=== PATIENT | male | born 1980 | race Caucasian/White ===

== ENCOUNTER 2020-08-04 07:48 | Outpatient (REF) | payer MEDICARE, MEDICAID, SELFPAY ==
--- NOTE | ~2020-08-04 | US_ITS ---
EXAMINATION: US ABDOMEN COMPLETE CLINICAL INFORMATION: Abdominal pain. COMPARISON: None TECHNIQUE: Real-time imaging of the abdominal viscera. FINDINGS: PANCREAS: Normal. ABDOMINAL AORTA: Visualized portion of the aorta is normal. INFERIOR VENA CAVA: Visualized portion of the IVC is normal. LIVER: Diffusely echogenic liver suggesting hepatic steatosis, hypoechoic area in the liver likely focal fat sparing. GALLBLADDER: Normal. The gallbladder is physiologically distended without evidence of stones, sludge, polyps, wall thickening or pericholecystic fluid. COMMON BILE DUCT: Normal in caliber measuring 0.3 cm in diameter. RIGHT KIDNEY: Mildly complex septated cyst middle pole right kidney measures 1 cm in diameter. There are echogenic foci likely nonobstructing stones. No hydronephrosis The kidney measures 10.2 cm in maximum dimension. LEFT KIDNEY: Normal. No hydronephrosis. No renal calculi or focal parenchymal lesions. The kidney measures 11.4 cm in maximum dimension. SPLEEN: Normal. The spleen measures 11.2 cm in maximum dimension. FREE FLUID: None. US/US abdomen complete IMPRESSION: No ultrasound evidence of gallbladder disease or gallstones. No explanation for patient's pain symptoms. Diffusely echogenic liver suggesting hepatic steatosis, hypoechoic area likely focal fat sparing. Nonobstructing stones right kidney. Mildly complex septated cyst middle pole right kidney 1 cm. Consider correlation with follow-up ultrasound in 6-12 months.
== END 2020-08-04 07:49 | disposition home or self-care (01) ==
LOC: HO.US 07:48
PROVIDERS: PCP Internal Medicine Geriatric Medicine; Visit Provider Internal Medicine Geriatric Medicine
DX: G80.9 Cerebral palsy, unspecified (principal); R14.0 Abdominal distension (gaseous)
CPT/HCPCS: 76700

== ENCOUNTER 2021-03-06 12:54 | Outpatient (REF) | payer MEDICARE, MEDICAID, SELFPAY ==
--- NOTE | 2021-03-06 16:48 | MHC.AU.AEV ---
Adult Audiological Evaluation Date of Visit: 03/06/21 Reason for Appointment: Annual audiological evaluation as required by Mr. Mojica's care program. Mr. Mojica is developmentally delayed and nonverbal. His caregiver denies any concerns for his hearing or any changes to his medical history. Has hearing been tested previously?: Yes Previous Hearing Test Results: [facility] [place], 12/24/2019- Could not condition to VRA, unable to obtain behavioral responses. Normal middle-ear function. Normal OAEs from 0550-9738 Hz in the right ear and 4069-4258 and 6528-9763 Hz in the left ear. Reduced OAEs 1546-2635 Hz in the right ear and 1994-5698 and 8907-9329 Hz in the left ear. Medical History: Medical History: Developmental Disorder/Delay Medical History: Cerebral palsy Allergies: egg, lactose, shellfish Medication List: Fluvoxamine maleate 100 mg, Clonidine HCl 0.2 mg, melatonin 5 mg, Eucerin, Zyprexa 2.5 mg, Fish oil, valacyclovir HCl 1,000 mg, Vascepa 1 g, Tylenol 325 mg PRN, Clotrimazxole 1%, Tessalon perle 100 mg PRN Otoscopy: Right Ear: Unremarkable, clear canals, TM normal in appearance Left Ear: Unremarkable, clear canals, TM normal in appearance Tympanometry: Tympanometry performed due to: To assess integrity of the middle ear system Right Ear: Normal Middle Ear System (Type A) Left Ear: Normal Middle Ear System (Type A) Otoacoustic Emissions Frequency Range Used: 1.6-8 kHz Note: Abimael appeared very anxious during today's visit and was breathing very heavily during OAE testing, causing noise interference. Right Ear Results: Reduced Emissions Analysis: Reduced/Absent emissions suggest cochlear dysfunction. High noise floor present due to movement/vocalizations. Left Ear Results: Reduced Emissions Analysis: Reduced/Absent emissions suggest cochlear dysfunction. High noise floor present due to movement/vocalizations. Hearing Evaluation: Transducer(s) Used: Soundfield Method: Visual Reinforcement Audiometry (VRA), Behavioral Observation Audiometry Stimuli Used: FRESH Noise, Warble Tones Soundfield (At Least the Better Ear): Description of Hearing: Attempted VRA and BOA, but Abimael did not react to sounds and responses could not be obtained today. Speech Awareness Threshold (SAT): Soundfield: Attempted but did not respond to speech Interpretation of Results: Clear ear canals and normal middle-ear function bilaterally. OAEs are reduced today compared to last year's testing, but was likely impacted by noise from Abimael's heavy breathing today. Recommendations: Given that there are no concerns for Abimael's hearing at his long-term at this time, recommend a re-evaluation in one year. Diagnosis: Primary Diagnosis: H93.293 Abnormal Auditory Perception Services Performed: Diagnostic Otoacoustic Emissions (CPT 30408, 26+TC) Tympanometry (CPT 38715) Signature: Provider: Mary Manzanares, CCC-A
== END 2021-03-06 12:55 | disposition home or self-care (01) ==
LOC: HO.SH 12:54
PROVIDERS: Visit Provider Internal Medicine Geriatric Medicine
DX: H93.293 Other abnormal auditory perceptions, bilateral (principal)
CPT/HCPCS: 92567; 92588

== ENCOUNTER 2021-10-02 08:29 | Outpatient (REF) | payer MEDICARE, MEDICAID, SELFPAY ==
[2021-10-02 09:28] LABS: Hematocrit 44.7 % (42.0-52.0); Hemoglobin 15.4 g/dl (14.0-18.0); Mean Corpuscular HGB Conc 34.5 g/dl (31.0-36.0); Mean Corpuscular Hemoglobin 29.7 pg (27.0-33.0); Mean Corpuscular Volume 86.1 fL (80.0-98.0); Mean Platelet Volume 10.5 fL (9.4-12.4); Platelet Count 181 X10*3/uL (160-400); Red Blood Count 5.19 X10*6/uL (4.60-5.80); White Blood Count 6.6 X10*3/uL (4.8-10.8)
[2021-10-02 09:47] LABS: Estimated Average Glucose 94 mg/dL; Hemoglobin A1C 120.8386 umol/L; Hemoglobin A1c % 4.9 %
[2021-10-02 10:06] LABS: Alanine Aminotransferase 29 U/L (0-40); Albumin Level 4.6 g/dL (3.5-5.0); Alkaline Phosphatase 96 U/L (39-117); Anion Gap 16 (12-20); Aspartate Amino Transferase 19 U/L (5-37); Bilirubin Total 1.6 mg/dL (0.0-1.0); Blood Urea Nitrogen 13 mg/dL (9-16); Calcium 9.8 mg/dL (8.4-10.2); Carbon Dioxide 22 mmol/L (22-29); Chloride 104 mmol/L (96-108); Estimated Glomerular Filt Rate > 60; Glucose Random 126 mg/dL (60-115); HIV AB/AG Nonreactive (Nonreactive); HIV Num 1 0.12 S/CO (0.00-0.99); Sodium 138 mmol/L (135-145); Total Protein 7.5 g/dL (6.5-8.0); ~Hepatitis C Antibody Nonreactive (Nonreactive)
[2021-10-02 10:09] LABS: TSH reflex Free T4 1.76 uIU/mL (0.32-4.0)
== END 2021-10-02 08:30 | disposition home or self-care (01) ==
LOC: HO.LAB 08:29
PROVIDERS: PCP Internal Medicine Geriatric Medicine; Visit Provider Internal Medicine Geriatric Medicine
DX: R63.4 Abnormal weight loss (principal)
CPT/HCPCS: 36415; 80053; 83036; 84443; 85027; 86803; 87389

== ENCOUNTER 2022-06-06 10:12 | Outpatient (REF) | payer MEDICARE, MEDICAID, SELFPAY ==
--- NOTE | ~2022-06-06 | US_ITS ---
EXAMINATION: US RETROPERITONEAL LIMITED (RENAL ONLY) CLINICAL INFORMATION: Renal stones. COMPARISON: Ultrasound abdomen complete 08/04/2020. TECHNIQUE: Real-time imaging of the kidneys. FINDINGS: RIGHT KIDNEY: 10.3 x 4.4 x 4.7 cm (SAG x AP x TRV). The kidney is normal in size, contour, and echogenicity. Renal cortical thickness is normal. No hydronephrosis. Benign-appearing 1 cm renal cyst, no follow-up imaging recommended. 6 mm nonobstructing lower pole renal stone. LEFT KIDNEY: 10.0 x 5.2 x 5.0 cm (SAG x AP x TRV). The kidney is normal in size, contour, and echogenicity. Renal cortical thickness is normal. No renal calculi or hydronephrosis. A 1.6 x 1.3 x 1.5 cm left renal lesion with question of internal solid components versus internal components of hemorrhage, with mural calcification. Additional likely benign 1.7 cm renal cyst, with mural calcification, no follow-up imaging recommended. US/US renal BI IMPRESSION: A 1.6 cm indeterminate left renal lesion with question of internal solid components versus internal components of hemorrhage, unclear if this could reflect a complex cyst or mixed solid and cystic renal mass. Recommend further characterization with CT or MR renal mass protocol. 6 mm nonobstructing right lower pole renal stone. The report will be called to the ordering clinician by a [place] [facility] Physician Art Historian.
== END 2022-06-06 10:13 | disposition home or self-care (01) ==
LOC: HO.US 10:12
PROVIDERS: PCP Internal Medicine Geriatric Medicine; Visit Provider Internal Medicine Geriatric Medicine
DX: N20.0 Calculus of kidney (principal)
CPT/HCPCS: 76775

== ENCOUNTER 2022-07-18 16:05 | Outpatient (REF) | payer MEDICARE, MEDICAID, SELFPAY ==
--- NOTE | ~2022-07-18 | MR_ITS ---
EXAMINATION: MRI ABDOMEN WITH AND WITHOUT CONTRAST CLINICAL INFORMATION: Reason for Exam COMPARISON: 06/06/2022 ultrasound TECHNIQUE: Multiple routine MRI sequences through the abdomen were obtained on a high-field 1.5Tesla MRI. Pre-and postcontrast images with 7.5 mL of Gadavist intravenous contrast were obtained. This included a dynamic contrast-enhanced technique. FINDINGS: Lung bases: The visualized lung bases are unremarkable. Liver: There is diffuse signal loss within the liver parenchyma on the out of phase images consistent with diffuse fatty infiltration. No focal hepatic lesion or biliary ductal dilatation. Gallbladder: Gallbladder is contracted but otherwise unremarkable. No suspicious gallstones or filling defects. No gallbladder wall thickening or pericholecystic inflammatory changes. Pancreas: Visualized portion of the pancreas is homogeneous in signal. No pancreatic ductal dilatation or obstruction. No peripancreatic inflammatory changes or fluid. Spleen: Unremarkable Adrenals: Unremarkable Kidneys: Right kidney: The right kidney measures 9.9 cm in length. No obstructive changes seen. Tiny T2 subcentimeter bright nonenhancing cortical cysts incidentally noted. Left kidney: The left kidney measures 9.7 cm in length. Again no obstructive changes seen. No hydronephrosis or perinephric stranding. There is a T2 bright nonenhancing simple appearing cyst in the lateral mid to upper pole of the left kidney and an additional 1.5 cm cyst in the lateral midpole of the left kidney that also is T2 bright without significant postcontrast enhancement. Postcontrast images are degraded by motion artifact but again no significant enhancement is seen. Other: No bulky retroperitoneal or mesenteric adenopathy MR/MR abdomen wo/w con IMPRESSION: 1. There are simple appearing bilateral renal cysts including 2 simple appearing cysts seen in the left kidney. Although the postcontrast images are more significantly degraded by motion artifact, I do not appreciate any abnormal enhancing solid component. No suspicious renal mass lesion or hydronephrosis. 2. Diffuse fatty infiltration of the liver.
--- NOTE | ~2022-07-18 | XR_ITS ---
EXAMINATION: XR SKULL CLINICAL INFORMATION: Pre-MRI COMPARISON: None available. TECHNIQUE: 2 views of the skull were obtained. FINDINGS: No radiopaque foreign body or surgical device seen. Bony structures are normal. Soft tissues are normal. XR/XR skull <4V IMPRESSION: Unremarkable examination.
--- NOTE | ~2022-07-18 | XR_ITS ---
EXAMINATION: XR ABDOMEN KUB CLINICAL INDICATION: Pre-MRI COMPARISON: None available. TECHNIQUE: AP view of the abdomen. FINDINGS: There is a large stool burden present. No metallic radiopaque foreign bodies are appreciated. No dilated loops of large or small bowel. Bone island seen within the right femoral neck. XR/XR KUB IMPRESSION: No metallic radiopaque foreign body identified about the abdomen or pelvis.
--- NOTE | ~2022-07-18 | XR_ITS ---
EXAMINATION: XR CHEST CLINICAL INFORMATION: Pre-MRI COMPARISON: Chest radiographs 01/28/2010, 01/27/2010 TECHNIQUE: Frontal view of the chest was obtained. FINDINGS: There is no metallic foreign body, pacemaker, or pacer wires. The heart is within normal size. The vascularity is normal. There is tapering at the cardiac apex likely areolar tissue. The costophrenic sulci are clear. No infiltrate or airspace opacity. Upper abdomen unremarkable. XR/XR chest 1V IMPRESSION: -No pacemaker or metallic foreign body. Upper abdomen unremarkable. -No acute intrathoracic disease.
== END 2022-07-18 16:06 | disposition home or self-care (01) ==
LOC: HO.MRI 16:05
PROVIDERS: PCP Internal Medicine Geriatric Medicine; Visit Provider Internal Medicine Geriatric Medicine
DX: Z01.818 Encounter for other preprocedural examination (principal); N28.89 Other specified disorders of kidney and ureter
CPT/HCPCS: 70250; 71045; 74018; 74183; A9585

== ENCOUNTER 2022-11-17 11:28 | Emergency (ER) | payer MEDICARE, MEDICAID, SELFPAY ==
[2022-11-17 11:55] VITALS: BP 111/72; PULSE 76; RESP 20; TEMP 36.4; O2SAT 98; BMI 22.6
--- NOTE | 2022-11-17 11:55 | ED.GENADULT ---
HPI - General Adult General Chief complaint: Eye Problems Stated complaint: R eye redness Time Seen by Provider: 11/17/22 12:36 Source: patient and RN notes reviewed Mode of arrival: ambulatory Limitations: no limitations History of Present Illness HPI narrative: This is a 41-year-old male, with a past medical history of autism and is not verbal, fragile X syndrome, presenting to the emergency department with complaints of right eye redness since today. 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 storage worker reports that he has been rubbing his eye this morning - no discharge or drainage from his right eye. No known trauma to the eye. Pt has had no fevers. He is eating and drinking without difficulty. No recent cough, nasal congestion. No changes in behavior. No other complaints or concerns at this time. MD complaint: Eye redness Onset (ago): day(s) Associated symptoms: denies other symptoms Treatments prior to arrival: none Related Data Previous Rx's Medication Instructions Recorded docosanol 10 % topical cream 1 appl topical 5XD #2 grams 11/17/22 (Abreva) erythromycin 5 mg/gram (0.5 %) eye 1 appl ophthalmic-Right QID #3.5 11/17/22 ointment grams ganciclovir 0.15 % eye gel 1 drp ophthalmic-Right 5XD 1 week 11/17/22 #5 grams Allergies Allergy/AdvReac Type Severity Reaction Status Date / Time shellfish derived Allergy Severe Anaphylaxis Verified 11/17/22 11:59 egg [EGG] Allergy Unknown UNKNOWN Verified 11/17/22 11:59 lactose [LACTOSE] Allergy Unknown UNKNOWN Verified 11/17/22 11:59 Review of Systems Review of Systems: Yes all other systems are reviewed and are negative Constitutional: Constitutional: Reports as per [facility] Past Medical History Attestation statement: The following information was validated with the patient. Medical History Anxiety Cerebral palsy COVID-19 Fragile X syndrome History of pica Hypertriglyceridemia Intellectual disability Lactose intolerance Leg edema OCD (obsessive compulsive disorder) Tinea corporis Social History Social History Smoked in Last 30 Days: No Use of substances other than those prescribed or required for medical reasons: No Advance Directives: No Advance Directives Information Provided: Yes Physical Exam ED Vital Signs: Vital Signs - 24 hr 11/17/22 11:55 Temperature 97.6 F Pulse Rate 76 Respiratory Rate 20 Blood Pressure 111/72 Pulse Oximetry 98 Oxygen Delivery Method Room Air BMI result Body Mass Index 22.6 Const General: cooperative and comfortable Limitations: behavioral limitations HENMT Other: lower lip,lateral aspect there is a cluster of 3 vessicles noted. No surrounding erythema or edema. Head: Yes normal to inspection, Yes normocephalic and Yes atraumatic Ears: hearing grossly normal bilaterally General nose exam: Normal external nose present Face and sinus: Yes normal facial exam Mouth: Normal oral and palatal mucosa present, oropharynx normal and moist mucous membranes Throat: Yes posterior oropharynx normal Eyes Other: Right conjunctiva is injected, no drainage, with mild upper eyelid edema noted. ? 2mm vesicle noted to right upper eyelid. No surrounding vesicles General: appearance normal, both eyes and all related structures Eyelids: Yes eyelids normal Sclerae: sclerae normal Pupils: Equal, round and reactive pupils present EOM: EOMs intact bilaterally Neck Neck: Yes normal visual inspection, Yes full ROM and Yes no lymphadenopathy Lymphatic: no lymphadenopathy noted Chest Chest palpation & inspection: normal inspection of the chest Resp Effort & Inspection: normal respiratory effort and able to speak in complete sentences Auscultation: clear to auscultation bilaterally, no crackles, no rales, no rhonchi and no wheezes Cardio Rate: regular rate Rhythm: regular rhythm Heart sounds: S1 normal heart sound present and S2 normal heart sound present GI Inspection: Yes normal to inspection Skin General skin exam: no rashes or lesions noted Trauma: no lacerations or abrasions Wounds: no wounds Neuro General: moves all extremities Cranial nerves: Yes Equal, round and reactive pupils present Extrem General: Yes normal to inspection Right upper extremity: normal to inspection Left upper extremity: normal to inspection Right lower extremity: normal to inspection Left lower extremity: normal to inspection Course Course Course Narrative: This is a rapid medical exam. Deferred additional HPI, ROS, PE to primary provider. 42 yo male from a snf (here with staff) with a PMH anxiety, OCD, CP, fragile X syndrome, HLD, non verbal at baseline here with complaints of right eye redness, swelling with waking. Unknown injury. Per staff patient doesnt appear to be in pain. He is SOB when he is walking but staff tells me this is normal and he gets quite anxious at the hospital and breathes rapidly. Will need formal eye exam VSS Medications Administered Discontinued Medications Generic Name Dose Route Start Last Admin Trade Name Mckenna PRN Reason Stop Dose Admin Fluorescein Sodium 1 strip 11/17/22 12:00 11/17/22 12:36 Fluorescein Sodium Strip EYE-RIGHT 11/17/22 12:01 1 strip ONCE ONE Administration Tetracaine HCl 1 drop 11/17/22 12:00 11/17/22 12:36 Tetracaine Hcl/Pf 0.5% Oph Taniya 4 Ml Drops EYE-RIGHT 11/17/22 12:01 1 drop ONCE ONE Administration Medical Decision Making Medical Decision Making [facility] Narrative: 42 y/o M, nonverbal, presenting to the ER with complaints of right eye redness since today. Right upper eyelid with ?vesicle noted with mild edema noted. PERRL and EOMI. No drainage from right eye. given cold sores noted to lip and veiscle noted to right upper eye, concerning for herpes simplex outbreak vs conjunctivitis. Physical eye examination difficult to perform due to mental developmental delay. IOP of right eye 12mmHg - normal. Flourescein stain was performed with no obvious dendritic lesions noted. Given concern, discussed case with opthamologist - Dr. Ren, who suggests covering with gancyclovir ointment and antibiotic ointment - advised to avoid use of steroidal eye drops/ointment. Encouraged outpatient f/u if symptoms do not improve. Discussed with group president. Understands and agrees with plan. Pt stable for discharge. 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 Ren - opthamologist Lab Data [facility] Lab Attestation statement: I reviewed the patient's lab results. Independent Historian Clinical information obtained from an independent historian. History obtained from or confirmed by: Other (group president) Prescription Management I considered prescription management with: Antiviral and Antibiotic Social Determinants Patient?s care significantly limited by Social Determinants of Health including: Other Social Determinant of Health Discharge Plan Discharge Clinical Impression: Irritation of right eye Patient Disposition: Home, Self-Care Additional Instructions: Please use prescribed ointment as directed. It is unclear whether not patient has a start of a herpetic outbreak in his right eye or the start of a pink eye. We are still treating for both. If you develop any new or worsening symptoms please return to the ER. You may follow-up with Dr. Ren, eye physician for any concerning symptoms. Prescriptions: New ganciclovir 0.15 % gel 1 drp ophthalmic-Right 5XD 7 Days Qty: 5 0RF erythromycin 5 mg/gram (0.5 %) ointment 1 appl ophthalmic-Right QID Qty: 3.5 0RF docosanol [Abreva] 10 % cream 1 appl topical 5XD Qty: 2 0RF Referrals: Chele Ren [Physician] - Interventions: ED Discharge Assessment Last Done: 11/17/22 14:50 Discharge Date/Time: 11/17/22 14:51
--- NOTE | 2022-11-17 12:00 | PC.NURSE ---
non-contributory in terms of visual exam and assessment- senior care member assisted rn and utilized pt's binder w/med history, etc.
[2022-11-17] MEDS: Fluorescein Sodium STRIP 1 STRIP EYE-RIGHT (12:36)
[2022-11-17] MEDS: Tetracaine HCl/PF 0.5% Oph Sol 4 ML DROPS 1 DROP EYE-RIGHT (12:36)
--- NOTE | 2022-11-17 12:39 | PC.NURSE ---
jail staff at [facility]- pt nonverbal baselne. mildly swollen r eyelid, redness to r eye. grp home staff stated started this morning on waking w/o known trauma. no respiratory distress.
== END 2022-11-17 14:51 | disposition home or self-care (01) ==
PROVIDERS: Emergency Provider Student in an Organized Health Care Education/Training Program; PCP Internal Medicine Geriatric Medicine
DX: H57.11 Ocular pain, right eye (principal); Z79.899 Other long term (current) drug therapy
CPT/HCPCS: 99283; 99284

== ENCOUNTER 2023-06-18 11:25 | Outpatient (REF) | payer MEDICARE, MEDICAID, SELFPAY ==
[2023-06-21 15:38] LABS: TS Negative Control Passed; TS Panel A 0; TS Panel B 0; TS Positive Control Passed; TSpotTB Negative (Negative)
== END 2023-06-18 11:26 | disposition home or self-care (01) ==
LOC: HO.HHCL 11:25
PROVIDERS: Visit Provider Internal Medicine Geriatric Medicine
DX: Z00.00 Encounter for general adult medical examination without abnormal findings (principal)
CPT/HCPCS: 36415; 86481

== ENCOUNTER 2023-07-01 08:05 | Inpatient (IN) | payer MEDICARE, MEDICAID, SELFPAY ==
--- NOTE | ~2023-07-01 | CT_ITS ---
EXAMINATION: CT ABDOMEN AND PELVIS WITHOUT CONTRAST CLINICAL INFORMATION: Nausea and vomiting. COMPARISON: Abdomen MRI from 07/18/2022. TECHNIQUE: Multidetector volumetric imaging was performed from the superior aspect of the liver through the pubic symphysis. Sagittal and coronal reformatted images were obtained on the technologist's workstation. This CT examination was performed using dose optimization techniques as appropriate, variously including the following: *Automated exposure control *Adjustment of mA and/or kV according to patient size (this includes techniques or standardized protocols for targeted exams where dose is matched to indication/reason for exam; i.e. extremities or head) *Use of iterative reconstruction technique DLP: 634 mGy-cm FINDINGS: LUNG BASES: There is respiratory motion on images through the bases. No pulmonary consolidation or pleural effusion. HEPATOBILIARY: Mild hepatomegaly and diffuse hepatic steatosis. Gallbladder has a normal appearance. No radiopaque stones, wall thickening or pericholecystic fluid. No dilated bile ducts. PANCREAS: No edema, pancreatic ductal dilatation or mass. SPLEEN: Normal. ADRENAL GLANDS: Normal. KIDNEYS AND URETERS: Kidneys are normal in size. 0.3 cm stone of the [id number] pole of the right kidney. Probable small calyceal stone of the anterolateral lower pole the left kidney. No large renal stones or hydronephrosis. The ureters are unremarkable. 1.5 cm cortical cyst of the lateral left kidney has minimal calcification along its wall. No renal imaging follow-up recommended. BLADDER: Normal. No calculi or wall thickening. BOWEL AND PERITONEUM: Stomach is well distended with gas and remains in the normal size range. No gastric wall thickening. The duodenum is unremarkable. There is no evidence of a gastric outlet obstruction. No dilated loops of small or large bowel. No evidence of appendicitis. No focal bowel wall thickening, free fluid or pneumoperitoneum. The haziness within central mesenteric fat is consistent with mesenteric panniculitis. ABDOMINAL WALL: Unremarkable. VASCULATURE: Unremarkable. LYMPH NODES: No retroperitoneal, iliac or inguinal lymph nodes. The mesenteric lymph nodes are in normal size range and measure up to 5 mm short axis dimension. PELVIC VISCERA: Prostate gland is unremarkable. No pelvic mass or free fluid. MUSCULOSKELETAL: No acute or suspicious osseous abnormality. CT/CT abdomen pelvis wo IV con IMPRESSION: * Although the stomach is well distended with gas, it remains in the normal size range. There is no evidence of an inflammatory or obstructive process along the gastrointestinal tract. * There is mild hepatomegaly and diffuse hepatic steatosis. * The haziness of central mesenteric fat is consistent with mesenteric panniculitis.
[2023-07-01 08:23] VITALS: BP 119/80; PULSE 120; RESP 16; TEMP 37.1; O2SAT 97; BMI 23.6
--- NOTE | 2023-07-01 09:15 | ED_ITS ---
HPI - General Adult General Chief complaint: Nausea/Vomiting/Diarrhea Stated complaint: Vomiting, diarrhea Time Seen by Provider: 07/01/23 09:11 Source: other (staff members ) Mode of arrival: ambulatory Limitations: other (nonverbal ) History of Present Illness HPI narrative: 42-year-old male history of nonverbal autism, fragile X syndrome, cerebral palsy, OCD, anxiety, presenting from nursing home with staff for nausea, vomiting, diarrhea that started last night. They decided to bring patient into the emergency department today because he had an episode of vomiting with undigested food. Reports that there is another member of the nursing home that is having some loose stool/diarrhea. Patient hasnt been eating and drinking as usual. He was able to tolerate p.o. fluids and meds this morning however. Acting his normal self. Patient unable to provide me with HPI or review of systems secondary to nonverbal autism. Related Data Previous Rx's Medication Instructions Recorded docosanol 10 % topical cream 1 appl topical 5XD #2 grams 11/17/22 (Abreva) erythromycin 5 mg/gram (0.5 %) eye 1 appl ophthalmic-Right QID #3.5 11/17/22 ointment grams ganciclovir 0.15 % eye gel 1 drp ophthalmic-Right 5XD 1 week 11/17/22 #5 grams Allergies Allergy/AdvReac Type Severity Reaction Status Date / Time shellfish derived Allergy Severe Anaphylaxis Verified 07/01/23 08:21 egg [EGG] Allergy Unknown UNKNOWN Verified 11/17/22 11:59 lactose [LACTOSE] Allergy Unknown UNKNOWN Verified 07/01/23 08:21 Review of Systems 2 Review of Systems: Yes Unobtainable due to mental status PMFSH Past Medical History Attestation statement: The following information was validated with the patient. Source: old records reviewed and nursing notes reviewed Medical History COVID-19 Tinea corporis Intellectual disability History of pica Leg edema Lactose intolerance Hypertriglyceridemia Fragile X syndrome Cerebral palsy Anxiety OCD (obsessive compulsive disorder) Social History Social History Smoked in Last 30 Days: No Use of substances other than those prescribed or required for medical reasons: No Advance Directives: Yes Advance Directives Information Provided: No Advance Directives on File: No Physical Exam ED Vital Signs: Vital Signs - 24 hr 07/01/23 08:23 Temperature 98.7 F Pulse Rate 120 H Respiratory Rate 16 Blood Pressure 119/80 Pulse Oximetry 97 Oxygen Delivery Method Room Air BMI result Body Mass Index 23.6 tachycardia noted Appearance: Alert.? ? No acute distress.? Head: Normocephalic, atraumatic, no step-offs or deformities Eyes: Pupils equal, round and reactive to light.? CVS: Normal heart rate and rhythm.? Pulses normal.? Respiratory: No respiratory distress.? Breath sounds normal.? Abdomen: Soft and nontender.? Normoactive bowel sounds Skin: Skin warm and dry.? Normal skin color.? Normal skin turgor.? Extremities: No lower extremity edema.? No calf ttp. 5/5 strength to bilateral upper and lower extremities Back: No midline tenderness, no C-spine tenderness, full range of motion, no CVA tenderness bilaterally Neuro: Alert? No motor deficit.? No sensory deficit. Ambulating with steady gait normal coordination. Moving all extremities without difficulty. Course Reevaluation(s) Reevaluation #1: CBC with leukocytosis and left shift likely reactive secondary to nausea and vomiting. Chemistry with elevated total bili and elevated AST and ALT likely secondary to viral illness. Time: 10:00 Reevaluation #2: Patient's worker tried getting a urine for patient, an unsuccessful due to incontinence. Time: 11:30 Reevaluation #3: CT abdomen pelvis with no obstructive process, mild hepatomegaly. Diffuse hepatic steatosis. The haziness of central mesenteric fat as consistent with mesenteric panniculitis. Trying to get a urine on this patient. Patient not eating when given food Time: 14:27 Additional Reevaluation(s): 1638 UA with 4+ bacteria, positive nitrates and leukocyte esterases at this time infection suspected. Blood cultures, lactic acid ordered as well as antibiotics. Medications Administered Discontinued Medications Generic Name Dose Route Start Last Admin Trade Name Freq PRN Reason Stop Dose Admin Lorazepam 0.5 mg 07/01/23 10:46 07/01/23 11:32 Lorazepam 0.5 Mg Tablet PO 07/01/23 10:47 0.5 mg ONCE ONE Administration Medical Decision Making Medical Decision Making [facility] Narrative: 0998 42-year-old male nonverbal presents with nausea, vomiting, diarrhea since last night, coming from nursing home where another member sick with similar symptoms. Physical exam benign. History and physical exam concerning for viral illness versus gastroenteritis versus food poisoning. Will rule out flu versus COVID versus RSV. Unlikely acute abdomen, obstruction, diverticulitis, appendicitis, pancreatitis, cholecystitis, metabolic derangements. Plan at this time will obtain basic labs, imaging, viral testing. Differential Diagnosis Differential Diagnoses: The differential diagnosis associated with the presentation includes History and physical exam concerning for viral illness versus gastroenteritis versus food poisoning. Will rule out flu versus COVID versus RSV. Unlikely acute abdomen, obstruction, diverticulitis, appendicitis, pancreatitis, cholecystitis, metabolic derangements. Admission/Observation Consideration of admission/observation: Escalation of care including admission/observation considered Unlikely Lab Data MDM Lab Attestation statement: I reviewed the patient's lab results. 07/01/23 09:24 07/01/23 09:24 Labs: Lab Results 07/01/23 07/01/23 07/01/23 Range/Units 09:08 09:24 16:21 WBC 13.6 H (4.8-10.8) X10*3/uL RBC 5.68 (4.60-5.80) X10*6/uL Hgb 17.6 (14.0-18.0) g/dl Hct 48.3 (42.0-52.0) % MCV 85.0 (80.0-98.0) fL MCH 31.0 (27.0-33.0) pg MCHC 36.4 H (31.0-36.0) g/dl RDW 13.3 (11.0-16.0) % Plt Count 213 (160-400) X10*3/uL MPV 9.2 L (9.4-12.4) fL Immature Gran % (Auto) 0.5 H (0.0-0.4) % Neut % (Auto) 92.0 H (45-73) % Lymph % (Auto) 3.8 L (20-40) % [place] % (Auto) 3.5 (2-11) % Eos % (Auto) 0.0 (0-4) % Baso % (Auto) 0.2 (0-2) % Lymph # (Auto) 0.5 L (1.2-4.9) X10*3/uL [place] # (Auto) 0.5 (0.1-1.2) X10*3/uL Eos # (Auto) 0.0 (0.0-0.4) X10*3/uL Baso # (Auto) 0.0 (0.0-0.2) X10*3/uL Abs Immat Gran (auto) 0.07 H (0.00-0.03) X10*3/uL Absolute Neuts (auto) 12.5 H (2.0-8.3) x10*3/uL Absolute Nucleated RBC 0.000 (0.0-0.012) X10*3/uL Nucleated RBC % (auto) 0.0 (0.0-0.2) /100WBC Smear Tech's Comments VERIFIED Sodium 142 (135-145) mmol/L Potassium 3.7 (3.3-5.1) mmol/L Chloride 108 (96-108) mmol/L Carbon Dioxide 23 (22-29) mmol/L Anion Gap 15 (12-20) BUN 17 H (9-16) mg/dL Creatinine 0.83 (0.5-1.4) mg/dL Estim Creat Clear Calc 113.3 Estimated GFR > 60 Random Glucose 127 H (60-115) mg/dL Calcium 9.5 (8.4-10.2) mg/dL Magnesium 1.9 (1.6-2.6) mg/dL Total Bilirubin 2.9 H (0.0-1.0) mg/dL AST 69 H (5-37) U/L ALT 133 H (0-40) U/L Alkaline Phosphatase 82 (39-117) U/L Total Protein 7.7 (6.5-8.0) g/dL Albumin 4.6 (3.5-5.0) g/dL Lipase 19 (8-78) U/L Urine Color Yellow Urine Appearance Cloudy Urine pH 7.5 (5.0-9.0) Ur Specific [place] 1.015 (1.005-1.025) Urine Protein 30 (1+) H (Neg-Trace) mg/dL Urine Glucose (UA) Negative (Negative) mg/dL Urine Ketones 15 (Negative) mg/dL Urine Blood Negative (Negative) Urine Nitrite Positive H (Negative) Ur Leukocyte Esterase Moderate (2+) H (Negative) Urine RBC 0-2 (0-2) /HPF Urine WBC 21-50 H (0-5) /HPF Ur Squamous Epith Cells 0-2 (0-2) /HPF Urine Bacteria 4+ (None Seen) Hyaline Casts 0-2 (0-2) /LPF Influenza Type A (PCR) NEGATIVE (Negative) Influenza Type B (PCR) NEGATIVE (Negative) RSV RNA Qual (PCR) NEGATIVE (Negative) SARS-CoV-2 RNA (RT-PCR) NEGATIVE (Negative) Independent Interpretation I performed an independent interpretation of an: CT Scan (CT/CT abdomen pelvis wo IV con IMPRESSION: * Although the stomach is well distended with gas, it remains in the normal size range. There is no evidence of an inflammatory or obstructive process along the gastrointestinal tract. * There is mild hepatomegaly and diffuse hepatic steatosis. * The mattson) Radiology Impression Discussion of test interpretation with radiology: I have reviewed the radiologist's reading. Independent Historian Clinical information obtained from an independent historian. History obtained from or confirmed by: Other (Staff from home) External Record Review External record reviewed: Inpatient record, Office record, Outpatient record, Prior outpatient labs, Prior outpatient radiology, Primary care record and Outside ED record Chronic Conditions Patient?s care impacted by: Other (Fragile X, nonverbal autism, OCD, anxiety.) Social Determinants Patient?s care significantly limited by Social Determinants of Health including: Other Social Determinant of Health Critical Care Time Critical Care Time Critical Care Time: Yes Total Critical Care Time: 35 Attestation: I attest to this time spent taking care of the patient, obtaining history, physical, reviewing labs, imaging, speaking to my attending, Discharge Plan Discharge Clinical Impression: Mesenteric panniculitis, Nausea & vomiting, Acute UTI Patient Disposition: Admitted As Inpatient Prescriptions: No Action ganciclovir 0.15 % gel 1 drp ophthalmic-Right 5XD 7 Days Qty: 5 0RF erythromycin 5 mg/gram (0.5 %) ointment 1 appl ophthalmic-Right QID Qty: 3.5 0RF docosanol [Abreva] 10 % cream 1 appl topical 5XD Qty: 2 0RF
[2023-07-01 09:30] LABS: Basophils Percent Auto 0.2 % (0-2); Hematocrit 48.3 % (42.0-52.0); Hemoglobin 17.6 g/dl (14.0-18.0); Imm Gran Abs Auto 0.07 X10*3/uL (0.00-0.03); Imm Gran Pct Auto 0.5 % (0.0-0.4); Lymphocytes Absolute Auto 0.5 X10*3/uL (1.2-4.9); Lymphocytes Percent Auto 3.8 % (20-40); MANUAL DIFF FLAG SCAN; Mean Corpuscular HGB Conc 36.4 g/dl (31.0-36.0); Mean Platelet Volume 9.2 fL (9.4-12.4); Monocytes Absolute Auto 0.5 X10*3/uL (0.1-1.2); Monocytes Percent Auto 3.5 % (2-11); Neutrophils Absolute Auto 12.5 x10*3/uL (2.0-8.3); Platelet Count 213 X10*3/uL (160-400); Red Blood Count 5.68 X10*6/uL (4.60-5.80); Red Cell Distribution Width 13.3 % (11.0-16.0); SCAN SMEAR FLAG 1; White Blood Count 13.6 X10*3/uL (4.8-10.8)
[2023-07-01 09:46] LABS: Alanine Aminotransferase 133 U/L (0-40); Albumin Level 4.6 g/dL (3.5-5.0); Alkaline Phosphatase 82 U/L (39-117); Anion Gap 15 (12-20); Aspartate Amino Transferase 69 U/L (5-37); Bilirubin Total 2.9 mg/dL (0.0-1.0); Blood Urea Nitrogen 17 mg/dL (9-16); Calcium 9.5 mg/dL (8.4-10.2); Carbon Dioxide 23 mmol/L (22-29); Chloride 108 mmol/L (96-108); Creatinine Clr Calc Pharmacy 113.3; Estimated Glomerular Filt Rate > 60; Glucose Random 127 mg/dL (60-115); Lipase 19 U/L (8-78); Magnesium 1.9 mg/dL (1.6-2.6); Potassium 3.7 mmol/L (3.3-5.1); Sodium 142 mmol/L (135-145); Total Protein 7.7 g/dL (6.5-8.0)
[2023-07-01 09:50] LABS: Influenza A PCR NEGATIVE (Negative); Influenza B PCR NEGATIVE (Negative); Resp Syncy Virus RNA Qual PCR NEGATIVE (Negative); SARS COV2 PCR INHOUSE NEGATIVE (Negative)
[2023-07-01 09:54] LABS: SLIDE REVIEW VERIFIED
[2023-07-01] MEDS: LORazepam 0.5 MG TABLET PO (11:32)
[2023-07-01 16:31] LABS: Appearance Urine Cloudy; Color Urine Yellow; Glucose Urine UA Negative (Negative); Leukocyte Esterase Urine Moderate (2+) (Negative); Nitrite Urine Positive (Negative); PH 7.5 (5.0-9.0); Specific Gravity - Urine 1.015 (1.005-1.025); UMIC TRIGGER UACC YES; Urine Blood Negative (Negative); Urine Ketones 15 mg/dL (Negative); Urine Protein 30 (1+) mg/dL (Neg-Trace)
[2023-07-01 16:34] LABS: Bacteria Urine 4+ (None Seen); Hyaline Casts Urine 0-2 /LPF (0-2); RBC Urine 0-2 /HPF (0-2); Squamous Epithelial Cell Urine 0-2 /HPF (0-2); UACC Culture Trigger YES; WBC Urine 21-50 /HPF (0-5)
--- NOTE | 2023-07-01 17:15 | PM.IMHP ---
History of Present Illness Date of Service: 07/01/23 Chief Complaint: Intractable nausea and vomiting A 42 years old male with PMH of nonverbal Autism, fragile X syndrome, cerebral palsy, OCD among others who is presenting wt intractable nausea and vomiting for almost 2 days now. The patient resides at a [facility] and he is non-verbal and could not contribute to the history. The staff decided to bring him for nausea, vomiting and diarrhea. he started vomiting undigested food and could not keep it down. in ED he was found to have UTI with abnormal CT abdomen showing Mesentric fat abnormalities suggestive of panniculitis. Admitted for further evaluation and treatment. Review of Systems Review of Systems: Yes Unobtainable due to mental condition [facility] Medical History COVID-19 Tinea corporis Intellectual disability History of pica Leg edema Lactose intolerance Hypertriglyceridemia Fragile X syndrome Cerebral palsy Anxiety OCD (obsessive compulsive disorder) Social History Smoked in Last 30 Days: No Use of substances other than those prescribed or required for medical reasons: No Advance Directives: Yes Advance Directives Information Provided: No Advance Directives on File: No Meds Allergies Allergy/AdvReac Type Severity Reaction Status Date / Time shellfish derived Allergy Severe Anaphylaxis Verified 07/01/23 08:21 egg [EGG] Allergy Unknown UNKNOWN Verified 11/17/22 11:59 lactose [LACTOSE] Allergy Unknown UNKNOWN Verified 07/01/23 08:21 Active Medications: Current Medications Sodium Chloride (Ns) 2,109 mls @ 2,109 mls/hr 30 ml/kg infuse over 1 hr (2109 ml) IV .Q1H STA Stop: 07/01/23 17:37 Home Medications Medication Instructions Recorded Confirmed Last Taken Type [place] 1 appl topical DAILY dry skin 07/01/23 07/01/23 Unknown History acetaminophen 325 mg tablet 650 mg PO Q6H PRN Fever Or Pain 07/01/23 07/01/23 Unknown History bacitracin 500 unit/gram topical 1 appl topical DAILY PRN MINOR 07/01/23 07/01/23 Unknown History ointment CUT, SCRATCHES OR ABRASIONS benzonatate 100 mg capsule 100 mg PO TID PRN COUGH LASTING 07/01/23 07/01/23 Unknown History LONGER THAN 5 MINUTES cetirizine 10 mg tablet 10 mg PO DAILY 07/01/23 07/01/23 Unknown History clonidine HCl 0.2 mg tablet 0.2 mg PO BID@0900,1400 07/01/23 07/01/23 Unknown History clotrimazole 1 % topical cream 1 appl topical BID 07/01/23 07/01/23 Unknown History epinephrine 0.3 mg/0.3 mL 0.3 mg IM DAILY PRN Anaphylaxis 07/01/23 07/01/23 Unknown History injection, auto-injector fluvoxamine 100 mg tablet 100 mg PO BEDTIME 07/01/23 07/01/23 Unknown History fluvoxamine 100 mg tablet 200 mg PO DAILY 07/01/23 07/01/23 Unknown History hydroxyzine HCl 25 mg tablet 25 mg PO BEDTIME 07/01/23 07/01/23 Unknown History icosapent ethyl 1 gram capsule 1 g PO DAILY 07/01/23 07/01/23 Unknown History (Vascepa) lorazepam 0.5 mg tablet 0.5 mg PO DAILY PRN Agitation 07/01/23 07/01/23 Unknown History melatonin 5 mg tablet 5 mg PO BEDTIME 07/01/23 07/01/23 Unknown History olanzapine 2.5 mg tablet 2.5 mg PO DAILY 07/01/23 07/01/23 Unknown History white petrolatum-mineral oil 1 appl topical BID 07/01/23 07/01/23 Unknown History topical cream Physical Exam Vital Signs and Narrative: Vital Signs: Last Vital Signs Temp 98.7 F 07/01/23 08:23 Pulse 120 H 07/01/23 08:23 Resp 16 07/01/23 08:23 BP 119/80 07/01/23 08:23 Pulse Ox 97 07/01/23 08:23 O2 Del Method Room Air 07/01/23 08:23 BMI result Body Mass Index 23.6 Const: Other: Constitutional : Awake, non-verbal, not in distress Neck : Normal inspection, Supple Cardiovascular : RRR, no JVP, no lower extremity edema Respiratory : good bilateral air entry, no crackles, wheezes or rhonchi Gastrointestinal: soft, lax, Normal bowel sounds, grimicing with palpation; tenderness Skin : Warm, Dry Neurological : Alert , make eye contact and reach out with hands , No focal deficit Results Labs 07/01/23 09:24 07/01/23 09:24 Labs: Laboratory Results - last 24 hr 07/01/23 07/01/23 07/01/23 09:08 09:24 16:21 MCV 85.0 MCH 31.0 MCHC 36.4 H RDW 13.3 Plt Count 213 MPV 9.2 L Immature Gran % (Auto) 0.5 H Neut % (Auto) 92.0 H Lymph % (Auto) 3.8 L [place] % (Auto) 3.5 Eos % (Auto) 0.0 Baso % (Auto) 0.2 Lymph # (Auto) 0.5 L [place] # (Auto) 0.5 Eos # (Auto) 0.0 Baso # (Auto) 0.0 Abs Immat Gran (auto) 0.07 H Absolute Neuts (auto) 12.5 H Absolute Nucleated RBC 0.000 Nucleated RBC % (auto) 0.0 Smear Tech's Comments VERIFIED Anion Gap 15 Estim Creat Clear Calc 113.3 Estimated GFR > 60 Random Glucose 127 H Calcium 9.5 Magnesium 1.9 Total Bilirubin 2.9 H AST 69 H ALT 133 H Alkaline Phosphatase 82 Total Protein 7.7 Albumin 4.6 Lipase 19 Urine Color Yellow Urine Appearance Cloudy Urine pH 7.5 Ur Specific [place] 1.015 Urine Protein 30 (1+) H Urine Glucose (UA) Negative Urine Ketones 15 Urine Blood Negative Urine Nitrite Positive H Ur Leukocyte Esterase Moderate (2+) H Urine RBC 0-2 Urine WBC 21-50 H Ur Squamous Epith Cells 0-2 Urine Bacteria 4+ Hyaline Casts 0-2 Influenza Type A (PCR) NEGATIVE Influenza Type B (PCR) NEGATIVE RSV RNA Qual (PCR) NEGATIVE SARS-CoV-2 RNA (RT-PCR) NEGATIVE Imaging Radiologist's Impressions: Impressions Abdomen/Pelvis CT 07/01/23 13:41 IMPRESSION: * Although the stomach is well distended with gas, it remains in the normal size range. There is no evidence of an inflammatory or obstructive process along the gastrointestinal tract. * There is mild hepatomegaly and diffuse hepatic steatosis. * The haziness of central mesenteric fat is consistent with mesenteric panniculitis. Assessment and Plan (1) Acute UTI: Status: Acute (2) Nausea & vomiting: Status: Acute (3) Mesenteric panniculitis: Status: Acute Plan A 42 years old male with PMH of nonverbal Autism, fragile X syndrome, cerebral palsy, OCD among others who is presenting wth intractable nausea and vomiting for almost 2 days now. Intractable nausea and vomiting Likely secondary to Urine infection Pending cultures IVF Zofran Ceftriaxone IV Advance diet as tolerated; on clears MEsentric panniculitis Noted on CT scan of abdomen get surgical evaluation Mood disorder Hydroxyzine, Olanzapine and Melatonin bedtime Clonidine Ativan PRN DVT PPx Lovenox The patient will need 2 overnight hospital stay for treatment of UTI pending final culture and clinical improvement Quality Stroke Does the patient have a stroke diagnosis?: No VTE Prior VTE?: No VTE Risk Level:: Medical - moderate - high VTE Device Contraindication: N/A - Device Ordered VTE Drug Contraindication: N/A - Med Ordered
--- NOTE | 2023-07-01 17:30 | PHA.MEDREC ---
Pharmacy Consult ? Medication Reconciliation Pharmacy has completed the medication reconciliation. List from [facility] that matches claim history. Ileana Parker, TobyD
[2023-07-01] MEDS: ondansetron HCL 4 MG/2 ML VIAL IVPUSH (17:31)
[2023-07-01] MEDS: Enoxaparin Sodium 40 MG/0.4 ML SYRINGE SUBCUT (17:31)
[2023-07-01] MEDS: cefTRIAXone sodium 1 GM in 0.9 % Sodium Chloride 50 ML IV (17:31)
[2023-07-01 17:42] VITALS: BP 106/72; PULSE 94; RESP 20; TEMP 36.9; O2SAT 98
[2023-07-01 18:20] LABS: Lactic Acid 2.4 mmol/L (0.5-2.0)
[2023-07-01 19:22] LABS: Reflex Lactate? Lactic Acid Added
[2023-07-01] MEDS: Lactated Ringers 1,000 ML 80 ML IVCONT (19:56)
[2023-07-01 20:15] LABS: ~Lactic Acid-LAB USE ONLY 2.1 mmol/L (0.5-2.0)
--- NOTE | 2023-07-01 20:25 | PC.NURSE ---
Assumed care of pt. Pt ambulated from stretcher to hospital bed without complications. Care worker at bedside with pt. Pt has LR IVF running in RAC IV. Contacted hospitalist with concerns of repeat Lactic (2.1, down from 2.4) and request for update.
--- NOTE | 2023-07-01 20:43 | P.CONGS_ITS ---
History of Present Illness Consult details Consult date: 07/01/23 Requesting physician: Phillip Barker Narrative: 42 years old male with PMH of nonverbal Autism, fragile X syndrome, cerebral palsy, OCD among others who is presenting wth intractable nausea and vomiting for almost 2 days now. The patient resides at a correction and he is non-verbal and could not contribute to the history. The staff decided to bring him for nausea, vomiting and diarrhea. he started vomiting undigested food and could not keep it down. in ED he was found to have UTI with abnormal CT abdomen showing Mesentric fat abnormalities suggestive of panniculitis. He does not seem to have any abdominal pain and since he has been here in the emergency room he seems to have become more comfortable according to his caregiver. . Review of Systems 2 Review of Systems: Yes Unobtainable due to mental condition and Unobtainable due to mental status PMFSH Past Medical History Medical History COVID-19 Tinea corporis Intellectual disability History of pica Leg edema Lactose intolerance Hypertriglyceridemia Fragile X syndrome Cerebral palsy Anxiety OCD (obsessive compulsive disorder) Social History Social History Patient Tobacco Use Status: Never used Tobacco Smoked in Last 30 Days: No Use of substances other than those prescribed or required for medical reasons: No Advance Directives: Yes Advance Directives Information Provided: No Advance Directives on File: No Nutrition Risks: No Nutritional Risk Meds Allergies Allergy/AdvReac Type Severity Reaction Status Date / Time shellfish derived Allergy Severe Anaphylaxis Verified 07/01/23 08:21 egg [EGG] Allergy Unknown UNKNOWN Verified 11/17/22 11:59 lactose [LACTOSE] Allergy Unknown UNKNOWN Verified 07/01/23 08:21 Active Medications: Current Medications Acetaminophen (Acetaminophen 325 Mg Tablet) 650 mg PO Q6H PRN PRN Reason: Pain, Mild (Pain Scale 1-3) Benzonatate (Benzonatate 100 Mg Capsule) 100 mg PO TID PRN PRN Reason: COUGH LASTING LONGER THAN 5 MINUTES Clonidine HCl (Clonidine Hcl 0.2 Mg Tablet) 0.2 mg PO BID@0900,1400 [facility]; Protocol Clotrimazole (Clotrimazole 1 % Cream 15 Gm Tube) 1 appl TOPICAL BID [facility]; Protocol Enoxaparin Sodium (Enoxaparin Sodium 40 Mg/0.4 Ml Syringe) 40 mg SUBCUT Q24H [facility] Last Admin: 07/01/23 17:31 Dose: 40 mg Epinephrine (Epinephrine 1 Mg/Ml Vial) 0.3 mg IM DAILY PRN PRN Reason: Anaphylaxis Fluvoxamine Maleate (Fluvoxamine Maleate 50 Mg Tablet) 100 mg PO BEDTIME [facility] Fluvoxamine Maleate (Fluvoxamine Maleate 50 Mg Tablet) 200 mg PO DAILY [facility] Hydroxyzine HCl (Hydroxyzine Hcl 25 Mg Tablet) 25 mg PO BEDTIME [facility] Ceftriaxone Sodium 1 gm/ (Sodium Chloride) 50 mls @ 100 mls/hr IV Q24H [facility] Lactated Ringer's (Lr) 1,000 mls @ 80 mls/hr IVCONT .[id number] [facility] Last Admin: 07/01/23 19:56 Dose: 80 mls/hr Ketorolac Tromethamine (Ketorolac Tromethamine 30 Mg/Ml Vial) 15 mg IVPUSH Q6H PRN PRN Reason: Pain, Mild (Pain Scale 1-3) Stop: 07/06/23 17:06 Loratadine (Loratadine 10 Mg Tablet) 10 mg PO DAILY [facility] Lorazepam (Lorazepam 0.5 Mg Tablet) 0.5 mg PO DAILY PRN PRN Reason: Agitation Melatonin (Melatonin 3 Mg Tablet) 6 mg PO BEDTIME [facility] Multi-Ingred Cream/Lotion/Oil/Oint (Mineral Oil/Petrolatum,White 106 Gm Tube) 1 appl TOPICAL BID [facility]; Protocol Non-Formulary Medication (Icosapent Ethyl [Vascepa]) 1 gm PO DAILY [facility] Olanzapine (Olanzapine 2.5 Mg Tablet) 2.5 mg PO DAILY [facility] Ondansetron HCl (Ondansetron Hcl 4 Mg/2 Ml Vial) 4 mg IVPUSH Q8H PRN PRN Reason: Nausea and Vomiting Sodium Chloride (0.9 % Sodium Chloride Flush 3 Ml Syringe) 3 ml IVFLUSH QSHIFT [facility] Home Medications Medication Instructions Recorded Confirmed Last Taken Type [place] 1 appl topical DAILY dry skin 07/01/23 07/01/23 Unknown History acetaminophen 325 mg tablet 650 mg PO Q6H PRN Fever Or Pain 07/01/23 07/01/23 Unknown History bacitracin 500 unit/gram topical 1 appl topical DAILY PRN MINOR 07/01/23 07/01/23 Unknown History ointment CUT, SCRATCHES OR ABRASIONS benzonatate 100 mg capsule 100 mg PO TID PRN COUGH LASTING 07/01/23 07/01/23 Unknown History LONGER THAN 5 MINUTES cetirizine 10 mg tablet 10 mg PO DAILY 07/01/23 07/01/23 Unknown History clonidine HCl 0.2 mg tablet 0.2 mg PO BID@0900,1400 07/01/23 07/01/23 Unknown History clotrimazole 1 % topical cream 1 appl topical BID 07/01/23 07/01/23 Unknown History epinephrine 0.3 mg/0.3 mL 0.3 mg IM DAILY PRN Anaphylaxis 07/01/23 07/01/23 Unknown History injection, auto-injector fluvoxamine 100 mg tablet 100 mg PO BEDTIME 07/01/23 07/01/23 Unknown History fluvoxamine 100 mg tablet 200 mg PO DAILY 07/01/23 07/01/23 Unknown History hydroxyzine HCl 25 mg tablet 25 mg PO BEDTIME 07/01/23 07/01/23 Unknown History icosapent ethyl 1 gram capsule 1 g PO DAILY 07/01/23 07/01/23 Unknown History (Vascepa) lorazepam 0.5 mg tablet 0.5 mg PO DAILY PRN Agitation 07/01/23 07/01/23 Unknown History melatonin 5 mg tablet 5 mg PO BEDTIME 07/01/23 07/01/23 Unknown History olanzapine 2.5 mg tablet 2.5 mg PO DAILY 07/01/23 07/01/23 Unknown History white petrolatum-mineral oil 1 appl topical BID 07/01/23 07/01/23 Unknown History topical cream Physical Exam 2 Vital Signs: Vital Signs: Last Vital Signs Temp 98.5 F 07/01/23 17:42 Pulse 94 07/01/23 17:42 Resp 20 07/01/23 17:42 BP 106/72 07/01/23 17:42 Pulse Ox 98 07/01/23 17:42 O2 Del Method Room Air 07/01/23 17:42 BMI result Body Mass Index 23.6 Const: General: cooperative and comfortable Resp: Effort & Inspection: normal respiratory effort Auscultation: clear to auscultation bilaterally Cardio: Rate: regular rate GI: Other: Abdomen is soft nondistended nontender active bowel sounds. At least it seems nontender according to no guarding and no expression on his face change with deep palpation. He is cooperative to the abdominal exam Extrem: General: Yes normal to inspection Results Labs 07/01/23 09:24 07/01/23 09:24 Labs: Abnormal lab results 07/01/23 07/01/23 07/01/23 Range/Units 09:24 16:21 17:17 WBC 13.6 H (4.8-10.8) X10*3/uL MCHC 36.4 H (31.0-36.0) g/dl MPV 9.2 L (9.4-12.4) fL Immature Gran % (Auto) 0.5 H (0.0-0.4) % Neut % (Auto) 92.0 H (45-73) % Lymph % (Auto) 3.8 L (20-40) % Lymph # (Auto) 0.5 L (1.2-4.9) X10*3/uL Abs Immat Gran (auto) 0.07 H (0.00-0.03) X10*3/uL Absolute Neuts (auto) 12.5 H (2.0-8.3) x10*3/uL BUN 17 H (9-16) mg/dL Random Glucose 127 H (60-115) mg/dL Lactic Acid 2.4 H* (0.5-2.0) mmol/L Lactic Acid F/U @ 2Hr (0.5-2.0) mmol/L Total Bilirubin 2.9 H (0.0-1.0) mg/dL AST 69 H (5-37) U/L ALT 133 H (0-40) U/L Urine Protein 30 (1+) H (Neg-Trace) mg/dL Urine Nitrite Positive H (Negative) Ur Leukocyte Esterase Moderate (2+) H (Negative) Urine WBC 21-50 H (0-5) /HPF 07/01/23 Range/Units 19:49 WBC (4.8-10.8) X10*3/uL MCHC (31.0-36.0) g/dl MPV (9.4-12.4) fL Immature Gran % (Auto) (0.0-0.4) % Neut % (Auto) (45-73) % Lymph % (Auto) (20-40) % Lymph # (Auto) (1.2-4.9) X10*3/uL Abs Immat Gran (auto) (0.00-0.03) X10*3/uL Absolute Neuts (auto) (2.0-8.3) x10*3/uL BUN (9-16) mg/dL Random Glucose (60-115) mg/dL Lactic Acid (0.5-2.0) mmol/L Lactic Acid F/U @ 2Hr 2.1 H* (0.5-2.0) mmol/L Total Bilirubin (0.0-1.0) mg/dL AST (5-37) U/L ALT (0-40) U/L Urine Protein (Neg-Trace) mg/dL Urine Nitrite (Negative) Ur Leukocyte Esterase (Negative) Urine WBC (0-5) /HPF Short CBC 07/01/23 Range/Units 09:24 WBC 13.6 H (4.8-10.8) X10*3/uL Hgb 17.6 (14.0-18.0) g/dl Hct 48.3 (42.0-52.0) % Plt Count 213 (160-400) X10*3/uL BMP 07/01/23 09:24 Sodium 142 Potassium 3.7 Chloride 108 Carbon Dioxide 23 BUN 17 H Creatinine 0.83 Calcium 9.5 Liver Function 07/01/23 Range/Units 09:24 Total Bilirubin 2.9 H (0.0-1.0) mg/dL AST 69 H (5-37) U/L ALT 133 H (0-40) U/L Alkaline Phosphatase 82 (39-117) U/L Albumin 4.6 (3.5-5.0) g/dL Urine 07/01/23 Range/Units 16:21 Urine Color Yellow Urine Appearance Cloudy Urine pH 7.5 (5.0-9.0) Ur Specific [place] 1.015 (1.005-1.025) Urine Protein 30 (1+) H (Neg-Trace) mg/dL Urine Glucose (UA) Negative (Negative) mg/dL All other labs normal. Assessment and Plan (1) Mesenteric panniculitis: Status: Acute Plan Patient is a 42-year-old special needs with cerebral palsy fragile X syndrome nonverbal male who is lives at a correction most likely is not been doing well secondary to significant urinary tract infection. He has already been treated with IV and biotics as well as IV fluids. He is urinating. CT scan showed potential changes consistent with mesenteric panniculitis but it does not appear that the patient has any significant abdominal pain. I think the nausea and vomiting were secondary to the significant urinary tract infection. Most likely treatment of this along with the IV hydration and antibiotics will clear up his symptoms and already he seems to be doing better. In addition and may help any changes from the panniculitis. At this point no reason for any surgical intervention we will follow with another abdominal exam in the morning. Medical management as per his other issues. Plan was discussed with his bedside caregiver Total time managing care of this patient today: 35 minutes. Procedures Date of Service Date of Service: 07/01/23
--- NOTE | 2023-07-01 20:44 | PM.EVENT ---
Event Note Date of Service: 07/01/23 Time Spent With Patient Time: Total time managing care of this patient today ____ minutes.
[2023-07-01] MEDS: Mineral Oil/Petrolatum,White 106 GM Tube 1 APPL TOPICAL (21:11)
[2023-07-01] MEDS: Melatonin 3 MG TABLET 6 MG PO (21:11)
[2023-07-01] MEDS: fluvoxaMINE Maleate 50 MG TABLET 100 MG PO (21:11)
[2023-07-01] MEDS: hydrOXYzine HCL 25 MG TABLET PO (21:11)
[2023-07-01 21:51] LABS: Reflex Lactate? 2 Y
--- NOTE | 2023-07-01 22:14 | PC.NURSE ---
Per MD Soria, repeat Lactic draws no longer needed. Lab contacted.
--- NOTE | 2023-07-02 03:06 | PC.NURSE ---
Resumed care of pt. No acute distress at this time. Care worker at bedside.
[2023-07-02 05:36] VITALS: BP 128/77; PULSE 95; RESP 19; TEMP 36.6; O2SAT 97
--- NOTE | 2023-07-02 05:44 | PC.NURSE ---
Pt woke with soiled kevin pad, darker yellow urine, approx 200-300 output soaked into pad.
[2023-07-02] MEDS: Lactated Ringers 1,000 ML 80 ML IVCONT ×3 (06:20→20:24)
[2023-07-02 07:07] LABS: Hemoglobin 14.2 g/dl (14.0-18.0); Mean Corpuscular HGB Conc 36.4 g/dl (31.0-36.0); Mean Corpuscular Hemoglobin 30.9 pg (27.0-33.0); Mean Platelet Volume 9.6 fL (9.4-12.4); Platelet Count 153 X10*3/uL (160-400); Red Blood Count 4.59 X10*6/uL (4.60-5.80); Red Cell Distribution Width 13.1 % (11.0-16.0); White Blood Count 6.4 X10*3/uL (4.8-10.8)
--- NOTE | 2023-07-02 07:09 | PC.NURSE ---
Assumed care of patient at 0700, patient care worker at bedside, patient ambulated to the bathroom with steady gait, LR running at 80ml/hr.patient respirations equal and unlabored, skin dry and intact
[2023-07-02 07:25] LABS: Anion Gap 11 (12-20); Blood Urea Nitrogen 12 mg/dL (9-16); Carbon Dioxide 23 mmol/L (22-29); Chloride 113 mmol/L (96-108); Creatinine Clr Calc Pharmacy 130.6; Estimated Glomerular Filt Rate > 60; Glucose Random 114 mg/dL (60-115); Potassium 3.3 mmol/L (3.3-5.1); Sodium 144 mmol/L (135-145)
[2023-07-02 07:34] LABS: Calcium 8.1 mg/dL (8.4-10.2)
[2023-07-02] MEDS: fluvoxaMINE Maleate 50 MG TABLET 200 MG PO (07:49)
[2023-07-02] MEDS: Loratadine 10 MG TABLET PO (07:50)
[2023-07-02] MEDS: OLANZapine 2.5 MG TABLET PO (07:50)
[2023-07-02] MEDS: LORazepam 0.5 MG TABLET PO (07:50)
--- NOTE | 2023-07-02 08:34 | P.PNGS_ITS ---
Subjective Subjective Date of Service: 07/02/23 Interval history: Patient nonverbal Has autism, fragile X syndrome, skilled nursing resident history reviewed According to caregiver at bedside, no vomiting overnight or this morning Seems to get anxious on and off Physical Exam 2 Vital Signs: Vital Signs: Last Vital Signs Temp 97.9 F 07/02/23 05:36 Pulse 95 07/02/23 05:36 Resp 19 07/02/23 05:36 BP 128/77 07/02/23 05:36 Pulse Ox 97 07/02/23 05:36 O2 Del Method Room Air 07/02/23 05:36 BMI result Body Mass Index 23.6 Const: Other: Awake, eyes open, not communicative does not appear to be in pain General: no acute distress Resp: Effort & Inspection: normal respiratory effort Cardio: Rate: regular rate GI: Other: No obvious tenderness at this time even with deep palpation, no guarding Palpation (GI): Soft to palpation, not firm, nontender and no guarding Objective Data Active Medications Acetaminophen (Acetaminophen 325 Mg Tablet) 650 mg PO Q6H PRN PRN Reason: Pain, Mild (Pain Scale 1-3) Benzonatate (Benzonatate 100 Mg Capsule) 100 mg PO TID PRN PRN Reason: COUGH LASTING LONGER THAN 5 MINUTES Clonidine HCl (Clonidine Hcl 0.2 Mg Tablet) 0.2 mg PO BID@0900,1400 [facility]; Protocol Clotrimazole (Clotrimazole 1 % Cream 15 Gm Tube) 1 appl TOPICAL BID [facility]; Protocol Last Admin: 07/01/23 21:11 Dose: Not Given Documented By: JAZZY Non-Admin Reason: Med Not Available Enoxaparin Sodium (Enoxaparin Sodium 40 Mg/0.4 Ml Syringe) 40 mg SUBCUT Q24H [facility] Last Admin: 07/01/23 17:31 Dose: 40 mg Documented By: JM Epinephrine (Epinephrine 1 Mg/Ml Vial) 0.3 mg IM DAILY PRN PRN Reason: Anaphylaxis Fluvoxamine Maleate (Fluvoxamine Maleate 50 Mg Tablet) 100 mg PO BEDTIME [facility] Last Admin: 07/01/23 21:11 Dose: 100 mg Documented By: JAZZY Fluvoxamine Maleate (Fluvoxamine Maleate 50 Mg Tablet) 200 mg PO DAILY [facility] Last Admin: 07/02/23 07:49 Dose: 200 mg Documented By: ADEN Hydroxyzine HCl (Hydroxyzine Hcl 25 Mg Tablet) 25 mg PO BEDTIME [facility] Last Admin: 07/01/23 21:11 Dose: 25 mg Documented By: JAZZY Ceftriaxone Sodium 1 gm/ (Sodium Chloride) 50 mls @ 100 mls/hr IV Q24H [facility] Lactated Ringer's (Lr) 1,000 mls @ 80 mls/hr IVCONT .[id number] [facility] Last Admin: 07/02/23 06:20 Dose: 80 mls/hr Documented By: JAZZY Ketorolac Tromethamine (Ketorolac Tromethamine 30 Mg/Ml Vial) 15 mg IVPUSH Q6H PRN PRN Reason: Pain, Mild (Pain Scale 1-3) Stop: 07/06/23 17:06 Loratadine (Loratadine 10 Mg Tablet) 10 mg PO DAILY [facility] Last Admin: 07/02/23 07:50 Dose: 10 mg Documented By: ADEN Lorazepam (Lorazepam 0.5 Mg Tablet) 0.5 mg PO DAILY PRN PRN Reason: Agitation Last Admin: 07/02/23 07:50 Dose: 0.5 mg Documented By: ADEN Melatonin (Melatonin 3 Mg Tablet) 6 mg PO BEDTIME [facility] Last Admin: 07/01/23 21:11 Dose: 6 mg Documented By: JAZZY Multi-Ingred Cream/Lotion/Oil/Oint (Mineral Oil/Petrolatum,White 106 Gm Tube) 1 appl TOPICAL BID [facility]; Protocol Last Admin: 07/01/23 21:11 Dose: 1 appl Documented By: JAZZY Non-Formulary Medication (Icosapent Ethyl [Vascepa]) 1 gm PO DAILY [facility] Olanzapine (Olanzapine 2.5 Mg Tablet) 2.5 mg PO DAILY [facility] Last Admin: 07/02/23 07:50 Dose: 2.5 mg Documented By: ADEN Ondansetron HCl (Ondansetron Hcl 4 Mg/2 Ml Vial) 4 mg IVPUSH Q8H PRN PRN Reason: Nausea and Vomiting Sodium Chloride (0.9 % Sodium Chloride Flush 3 Ml Syringe) 3 ml IVFLUSH QSHIFT [facility] Last Admin: 07/02/23 07:08 Dose: Not Given Documented By: ADEN Non-Admin Reason: IV Running Labs 07/02/23 06:25 07/02/23 06:25 Labs: Laboratory Results - last 24 hr 07/01/23 07/01/23 07/01/23 09:08 09:24 16:21 MCV 85.0 MCH 31.0 MCHC 36.4 H RDW 13.3 Plt Count 213 MPV 9.2 L Immature Gran % (Auto) 0.5 H Neut % (Auto) 92.0 H Lymph % (Auto) 3.8 L [place] % (Auto) 3.5 Eos % (Auto) 0.0 Baso % (Auto) 0.2 Lymph # (Auto) 0.5 L [place] # (Auto) 0.5 Eos # (Auto) 0.0 Baso # (Auto) 0.0 Abs Immat Gran (auto) 0.07 H Absolute Neuts (auto) 12.5 H Absolute Nucleated RBC 0.000 Nucleated RBC % (auto) 0.0 Smear Tech's Comments VERIFIED Anion Gap 15 Estim Creat Clear Calc 113.3 Estimated GFR > 60 Random Glucose 127 H Lactic Acid Lactic Acid F/U @ 2Hr Calcium 9.5 Magnesium 1.9 Total Bilirubin 2.9 H AST 69 H ALT 133 H Alkaline Phosphatase 82 Total Protein 7.7 Albumin 4.6 Lipase 19 Urine Color Yellow Urine Appearance Cloudy Urine pH 7.5 Ur Specific [place] 1.015 Urine Protein 30 (1+) H Urine Glucose (UA) Negative Urine Ketones 15 Urine Blood Negative Urine Nitrite Positive H Ur Leukocyte Esterase Moderate (2+) H Urine RBC 0-2 Urine WBC 21-50 H Ur Squamous Epith Cells 0-2 Urine Bacteria 4+ Hyaline Casts 0-2 Influenza Type A (PCR) NEGATIVE Influenza Type B (PCR) NEGATIVE RSV RNA Qual (PCR) NEGATIVE SARS-CoV-2 RNA (RT-PCR) NEGATIVE 07/01/23 07/01/23 07/02/23 17:17 19:49 06:25 MCV 85.0 MCH 30.9 MCHC 36.4 H RDW 13.1 Plt Count 153 L D MPV 9.6 Immature Gran % (Auto) Neut % (Auto) Lymph % (Auto) [place] % (Auto) Eos % (Auto) Baso % (Auto) Lymph # (Auto) [place] # (Auto) Eos # (Auto) Baso # (Auto) Abs Immat Gran (auto) Absolute Neuts (auto) Absolute Nucleated RBC 0.000 Nucleated RBC % (auto) 0.0 Smear Tech's Comments Anion Gap 11 L Estim Creat Clear Calc 130.6 Estimated GFR > 60 Random Glucose 114 Lactic Acid 2.4 H* Lactic Acid F/U @ 2Hr 2.1 H* Calcium 8.1 L D Magnesium Total Bilirubin AST ALT Alkaline Phosphatase Total Protein Albumin Lipase Urine Color Urine Appearance Urine pH Ur Specific [place] Urine Protein Urine Glucose (UA) Urine Ketones Urine Blood Urine Nitrite Ur Leukocyte Esterase Urine RBC Urine WBC Ur Squamous Epith Cells Urine Bacteria Hyaline Casts Influenza Type A (PCR) Influenza Type B (PCR) RSV RNA Qual (PCR) SARS-CoV-2 RNA (RT-PCR) Procedures Date of Service Date of Service: 07/02/23 Progress Note: A&P Assessment and plan (1) Mesenteric panniculitis: Status: Acute Assessment and Plan: He was brought to the ER from the skilled nursing because of vomiting and diarrhea yesterday No vomiting overnight Abdominal exam benign, does not seem to have any apparent tenderness even with deep palpation this morning CT scan reviewed - mild haziness within the mesenteric fat in the central abdomen No other intra-abdominal pathology seen No surgical intervention at this time Will follow Time Spent With Patient Time: Total time managing care of this patient today ____ minutes. Quality Stroke Does the patient have a stroke diagnosis?: No VTE Prior VTE?: No VTE Risk Level:: Medical - moderate - high VTE Device Contraindication: N/A - Device Ordered VTE Drug Contraindication: N/A - Med Ordered
[2023-07-02] MEDS: cloNIDine HCL 0.2 MG TABLET PO ×2 (09:34→14:49)
[2023-07-02] MEDS: Mineral Oil/Petrolatum,White 106 GM Tube 1 APPL TOPICAL ×2 (09:35→20:25)
[2023-07-02] MEDS: Clotrimazole 1 % Cream 15 GM TUBE 1 APPL TOPICAL ×2 (09:35→20:25)
--- NOTE | 2023-07-02 09:43 | PC.NURSE ---
patient medicated per MAR, topical creams placed into patient specific bin. staff from patient longterm presented with a medication in an unmarked plastic bag saying the hospital called and needed medication to give to patient while he is here admitted. patient longterm worked educated on the fact that patient medications need to be brought in labeled in original packaging, [facility] pharmacist aware.
--- NOTE | 2023-07-02 10:13 | PC.NURSE ---
PATIENT STAFF BROUGHT IN PATIENT MEDICATION IN ORIGINAL UNOPENED PACKAGING. CALLED PHARMACY, WAS ADVISED TO PLACE IN PATIENT SPECIFIC BIN
--- NOTE | 2023-07-02 11:16 | MHC.CM.PN ---
Addendum entered by Sadie De La Torre 07/02/23 12:05: Received return telephone call from Gwen. Gwen verifies [facility] typically transport patient. Gwen's correct address is [address] [place] [address], [place] [address]. IMM will be mailed there. Registration will be made aware. Original Note: Attempted to meet with patient in regards to discharge planning. Patient is non-verbal from a [facility]. Patient has a guardian, Gwen Love. Attempted to speak with Gwen via telephone at [phone]. Left message requesting return call and explaining IMM would be sent via certified mail. CM assessment completed using medical record. Anticipate patient will return to [facility] when medically stable. Continue to monitor for d/c needs.
[2023-07-02 11:36] VITALS: PULSE 85; RESP 20; TEMP 36.5; O2SAT 95
--- NOTE | 2023-07-02 12:10 | HO.PM.IMPN ---
Subjective Subjective Date of Service: 07/02/23 Interval History: no complaints, non verbal Physical Exam Vital Signs: Vital Signs: Last Vital Signs Temp 97.7 F 07/02/23 11:36 Pulse 85 07/02/23 11:36 Resp 20 07/02/23 11:36 BP 128/77 07/02/23 05:36 Pulse Ox 95 07/02/23 11:36 O2 Del Method Room Air 07/02/23 11:36 BMI result Body Mass Index 23.6 alert, tracking, smiling, non verbal, appearing comfortable, abd soft, non tender Objective Data Active Medications Acetaminophen (Acetaminophen 325 Mg Tablet) 650 mg PO Q6H PRN PRN Reason: Pain, Mild (Pain Scale 1-3) Benzonatate (Benzonatate 100 Mg Capsule) 100 mg PO TID PRN PRN Reason: COUGH LASTING LONGER THAN 5 MINUTES Clonidine HCl (Clonidine Hcl 0.2 Mg Tablet) 0.2 mg PO BID@0900,1400 [facility]; Protocol Last Admin: 07/02/23 09:34 Dose: 0.2 mg Documented By: ADEN Clotrimazole (Clotrimazole 1 % Cream 15 Gm Tube) 1 appl TOPICAL BID [facility]; Protocol Last Admin: 07/02/23 09:35 Dose: 1 appl Documented By: ADEN Enoxaparin Sodium (Enoxaparin Sodium 40 Mg/0.4 Ml Syringe) 40 mg SUBCUT Q24H [facility] Last Admin: 07/01/23 17:31 Dose: 40 mg Documented By: JM Epinephrine (Epinephrine 1 Mg/Ml Vial) 0.3 mg IM DAILY PRN PRN Reason: Anaphylaxis Fluvoxamine Maleate (Fluvoxamine Maleate 50 Mg Tablet) 100 mg PO BEDTIME [facility] Last Admin: 07/01/23 21:11 Dose: 100 mg Documented By: JAZZY Fluvoxamine Maleate (Fluvoxamine Maleate 50 Mg Tablet) 200 mg PO DAILY [facility] Last Admin: 07/02/23 07:49 Dose: 200 mg Documented By: ADEN Hydroxyzine HCl (Hydroxyzine Hcl 25 Mg Tablet) 25 mg PO BEDTIME [facility] Last Admin: 07/01/23 21:11 Dose: 25 mg Documented By: JAZZY Ceftriaxone Sodium 1 gm/ (Sodium Chloride) 50 mls @ 100 mls/hr IV Q24H [facility] Lactated Ringer's (Lr) 1,000 mls @ 80 mls/hr IVCONT .[id number] [facility] Last Admin: 07/02/23 06:20 Dose: 80 mls/hr Documented By: JAZZY Ketorolac Tromethamine (Ketorolac Tromethamine 30 Mg/Ml Vial) 15 mg IVPUSH Q6H PRN PRN Reason: Pain, Mild (Pain Scale 1-3) Stop: 07/06/23 17:06 Loratadine (Loratadine 10 Mg Tablet) 10 mg PO DAILY [facility] Last Admin: 07/02/23 07:50 Dose: 10 mg Documented By: ADEN Lorazepam (Lorazepam 0.5 Mg Tablet) 0.5 mg PO DAILY PRN PRN Reason: Agitation Last Admin: 07/02/23 07:50 Dose: 0.5 mg Documented By: ADEN Melatonin (Melatonin 3 Mg Tablet) 6 mg PO BEDTIME [facility] Last Admin: 07/01/23 21:11 Dose: 6 mg Documented By: JAZZY Multi-Ingred Cream/Lotion/Oil/Oint (Mineral Oil/Petrolatum,White 106 Gm Tube) 1 appl TOPICAL BID [facility]; Protocol Last Admin: 07/02/23 09:35 Dose: 1 appl Documented By: ADEN Pt Own (Icosapent Ethyl [Vascepa] 1 Gram Capsule) 1 gm PO DAILY [facility] Last Admin: 07/02/23 11:25 Dose: 1 gm Documented By: ADEN Olanzapine (Olanzapine 2.5 Mg Tablet) 2.5 mg PO DAILY [facility] Last Admin: 07/02/23 07:50 Dose: 2.5 mg Documented By: ADEN Ondansetron HCl (Ondansetron Hcl 4 Mg/2 Ml Vial) 4 mg IVPUSH Q8H PRN PRN Reason: Nausea and Vomiting Sodium Chloride (0.9 % Sodium Chloride Flush 3 Ml Syringe) 3 ml IVFLUSH QSHIFT [facility] Last Admin: 07/02/23 07:08 Dose: Not Given Documented By: ADEN Non-Admin Reason: IV Running Labs 07/02/23 06:25 07/02/23 06:25 Labs: Laboratory Results - last 24 hr 07/01/23 07/01/23 07/01/23 16:21 17:17 19:49 MCV MCH MCHC RDW Plt Count MPV Absolute Nucleated RBC Nucleated RBC % (auto) Anion Gap Estim Creat Clear Calc Estimated GFR Random Glucose Lactic Acid 2.4 H* Lactic Acid F/U @ 2Hr 2.1 H* Calcium Urine Color Yellow Urine Appearance Cloudy Urine pH 7.5 Ur Specific [place] 1.015 Urine Protein 30 (1+) H Urine Glucose (UA) Negative Urine Ketones 15 Urine Blood Negative Urine Nitrite Positive H Ur Leukocyte Esterase Moderate (2+) H Urine RBC 0-2 Urine WBC 21-50 H Ur Squamous Epith Cells 0-2 Urine Bacteria 4+ Hyaline Casts 0-2 07/02/23 06:25 MCV 85.0 MCH 30.9 MCHC 36.4 H RDW 13.1 Plt Count 153 L D MPV 9.6 Absolute Nucleated RBC 0.000 Nucleated RBC % (auto) 0.0 Anion Gap 11 L Estim Creat Clear Calc 130.6 Estimated GFR > 60 Random Glucose 114 Lactic Acid Lactic Acid F/U @ 2Hr Calcium 8.1 L D Urine Color Urine Appearance Urine pH Ur Specific [place] Urine Protein Urine Glucose (UA) Urine Ketones Urine Blood Urine Nitrite Ur Leukocyte Esterase Urine RBC Urine WBC Ur Squamous Epith Cells Urine Bacteria Hyaline Casts Microbiology Microbiology Results: Microbiology 07/01/23 Unknown Urine Culture - Preliminary Urine clean catch - Urine zapata top Gram negative khai Assessment and Plan (1) Acute UTI: Status: Acute Plan 42 years old male with PMH of nonverbal Autism, fragile X syndrome, cerebral palsy, OCD among others who is presenting wth intractable nausea and vomiting for almost 2 days Intractable nausea and vomiting Likely secondary to Urinary tract infection Pending cultures - gram stain GNR in urine IVF Zofran Ceftriaxone IV Advance to solids Mesentric panniculitis gen surgery appreciated - pannuculuitis unlikely Mood disorder Hydroxyzine, Olanzapine and Melatonin bedtime Clonidine Ativan PRN DVT PPx Lovenox full code reason for continued hospitalization:awaiting [facility] Stroke Does the patient have a stroke diagnosis?: No VTE Prior VTE?: No VTE Risk Level:: Medical - moderate - high VTE Device Contraindication: N/A - Device Ordered VTE Drug Contraindication: N/A - Med Ordered
--- NOTE | 2023-07-02 13:12 | PC.NURSE ---
patient sat up ate lunch with child care attendant, patient atw 100% of his meal tray. resting quietly in hospital bed, respirations equal and unlabored, patient shows no signs of distress. skin dry and intact, patient has scratch gannon in various places on body that staff states is from his fingernails. patient has LR running 80 ml/hr, iv intact and patent. patient ambulates with child care attendant to the bathroom
[2023-07-02 15:14] VITALS: BP 127/84; PULSE 93; RESP 18; TEMP 36.5; O2SAT 94
[2023-07-02 15:54] VITALS: BMI 23.6
[2023-07-02] MEDS: cefTRIAXone sodium 1 GM in 0.9 % Sodium Chloride 50 ML IV (18:02)
[2023-07-02] MEDS: Enoxaparin Sodium 40 MG/0.4 ML SYRINGE SUBCUT (18:03)
[2023-07-02 19:12] VITALS: BP 98/67; PULSE 91; RESP 17; TEMP 36.8; O2SAT 93
[2023-07-02] MEDS: fluvoxaMINE Maleate 50 MG TABLET 100 MG PO (20:25)
[2023-07-02] MEDS: Melatonin 3 MG TABLET 6 MG PO (20:26)
[2023-07-02] MEDS: hydrOXYzine HCL 25 MG TABLET PO (20:26)
[2023-07-03 02:56] VITALS: BP 106/66; PULSE 82; RESP 18; TEMP 36.7; O2SAT 95
[2023-07-03 07:20] LABS: Anion Gap 13 (12-20); Blood Urea Nitrogen 7 mg/dL (9-16); Calcium 8.5 mg/dL (8.4-10.2); Carbon Dioxide 23 mmol/L (22-29); Chloride 110 mmol/L (96-108); Creatinine Clr Calc Pharmacy 132.4; Estimated Glomerular Filt Rate > 60; Glucose Fasting 103 mg/dL (60-99); Potassium 3.5 mmol/L (3.3-5.1); Sodium 142 mmol/L (135-145)
[2023-07-03 07:22] LABS: Hemoglobin 14.4 g/dl (14.0-18.0); Mean Corpuscular Hemoglobin 30.4 pg (27.0-33.0); Mean Corpuscular Volume 84.6 fL (80.0-98.0); Mean Platelet Volume 9.4 fL (9.4-12.4); Platelet Count 149 X10*3/uL (160-400); Red Blood Count 4.73 X10*6/uL (4.60-5.80); Red Cell Distribution Width 12.9 % (11.0-16.0); White Blood Count 7.4 X10*3/uL (4.8-10.8)
[2023-07-03 07:31] VITALS: BP 116/80; PULSE 83; RESP 18; TEMP 36.5; O2SAT 94
--- NOTE | 2023-07-03 08:36 | P.PNGS_ITS ---
Subjective Subjective Date of Service: 07/03/23 Interval history: no events reported tolerating diet has been comfortable accdg to caregiver Physical Exam 2 Vital Signs: Vital Signs: Last Vital Signs Temp 97.7 F 07/03/23 07:31 Pulse 83 07/03/23 07:31 Resp 18 07/03/23 07:31 BP 116/80 07/03/23 07:31 Pulse Ox 94 07/03/23 07:31 O2 Del Method Room Air 07/03/23 07:31 BMI result Body Mass Index 23.6 Const: General: no acute distress Resp: Effort & Inspection: normal respiratory effort Cardio: Rate: regular rate GI: Palpation (GI): Soft to palpation, not firm, nontender and no guarding Objective Data Active Medications Acetaminophen (Acetaminophen 325 Mg Tablet) 650 mg PO Q6H PRN PRN Reason: Pain, Mild (Pain Scale 1-3) Benzonatate (Benzonatate 100 Mg Capsule) 100 mg PO TID PRN PRN Reason: COUGH LASTING LONGER THAN 5 MINUTES Clonidine HCl (Clonidine Hcl 0.2 Mg Tablet) 0.2 mg PO BID@0900,1400 [facility]; Protocol Last Admin: 07/02/23 14:49 Dose: 0.2 mg Documented By: ADEN Clotrimazole (Clotrimazole 1 % Cream 15 Gm Tube) 1 appl TOPICAL BID [facility]; Protocol Last Admin: 07/02/23 20:25 Dose: 1 appl Documented By: YOHANNES Enoxaparin Sodium (Enoxaparin Sodium 40 Mg/0.4 Ml Syringe) 40 mg SUBCUT Q24H [facility] Last Admin: 07/02/23 18:03 Dose: 40 mg Documented By: DEJUAN Epinephrine (Epinephrine 1 Mg/Ml Vial) 0.3 mg IM DAILY PRN PRN Reason: Anaphylaxis Fluvoxamine Maleate (Fluvoxamine Maleate 50 Mg Tablet) 100 mg PO BEDTIME [facility] Last Admin: 07/02/23 20:25 Dose: 100 mg Documented By: YOHANNES Fluvoxamine Maleate (Fluvoxamine Maleate 50 Mg Tablet) 200 mg PO DAILY [facility] Last Admin: 07/02/23 07:49 Dose: 200 mg Documented By: ADEN Hydroxyzine HCl (Hydroxyzine Hcl 25 Mg Tablet) 25 mg PO BEDTIME [facility] Last Admin: 07/02/23 20:26 Dose: 25 mg Documented By: YOHANNES Ceftriaxone Sodium 1 gm/ (Sodium Chloride) 50 mls @ 100 mls/hr IV Q24H [facility] Last Infusion: 07/02/23 19:14 Dose: Infused Documented By: YOHANNES Lactated Ringer's (Lr) 1,000 mls @ 80 mls/hr IVCONT .[id number] [facility] Last Admin: 07/02/23 20:24 Dose: 80 mls/hr Documented By: YOHANNES Ketorolac Tromethamine (Ketorolac Tromethamine 30 Mg/Ml Vial) 15 mg IVPUSH Q6H PRN PRN Reason: Pain, Mild (Pain Scale 1-3) Stop: 07/06/23 17:06 Loratadine (Loratadine 10 Mg Tablet) 10 mg PO DAILY [facility] Last Admin: 07/02/23 07:50 Dose: 10 mg Documented By: ADEN Lorazepam (Lorazepam 0.5 Mg Tablet) 0.5 mg PO DAILY PRN PRN Reason: Agitation Last Admin: 07/02/23 07:50 Dose: 0.5 mg Documented By: ADEN Melatonin (Melatonin 3 Mg Tablet) 6 mg PO BEDTIME [facility] Last Admin: 07/02/23 20:26 Dose: 6 mg Documented By: YOHANNES Multi-Ingred Cream/Lotion/Oil/Oint (Mineral Oil/Petrolatum,White 106 Gm Tube) 1 appl TOPICAL BID [facility]; Protocol Last Admin: 07/02/23 20:25 Dose: 1 appl Documented By: YOHANNES Pt Own (Icosapent Ethyl [Vascepa] 1 Gram Capsule) 1 gm PO DAILY [facility] Last Admin: 07/02/23 11:25 Dose: 1 gm Documented By: ADEN Olanzapine (Olanzapine 2.5 Mg Tablet) 2.5 mg PO DAILY [facility] Last Admin: 07/02/23 07:50 Dose: 2.5 mg Documented By: ADEN Ondansetron HCl (Ondansetron Hcl 4 Mg/2 Ml Vial) 4 mg IVPUSH Q8H PRN PRN Reason: Nausea and Vomiting Sodium Chloride (0.9 % Sodium Chloride Flush 3 Ml Syringe) 3 ml IVFLUSH QSHIFT [facility] Last Admin: 07/03/23 07:48 Dose: Not Given Documented By: HARIS Non-Admin Reason: IV Running Labs 07/03/23 05:48 07/03/23 05:48 Labs: Laboratory Results - last 24 hr 07/03/23 05:48 MCV 84.6 MCH 30.4 MCHC 36.0 RDW 12.9 Plt Count 149 L MPV 9.4 Absolute Nucleated RBC 0.000 Nucleated RBC % (auto) 0.0 Anion Gap 13 Estim Creat Clear Calc 132.4 Estimated GFR > 60 Fasting Glucose 103 H Calcium 8.5 Microbiology Microbiology Results: Microbiology 07/01/23 Unknown Urine Culture - Final Urine clean catch - Urine zapata top Klebsiella pneumoniae 07/01/23 17:17 Blood Culture - Preliminary Blood - Venous No growth after 24 hours. 07/01/23 17:17 Blood Culture - Preliminary Blood - Venous No growth after 24 hours. Procedures Date of Service Date of Service: 07/03/23 Progress Note: A&P Assessment and plan (1) Mesenteric panniculitis: Status: Acute Assessment and Plan: exam benign no apparent tenderness good GI function no surgical intervention looks well rest of plan as per hospitalist service Time Spent With Patient Time: Total time managing care of this patient today ____ minutes. Quality Stroke Does the patient have a stroke diagnosis?: No VTE Prior VTE?: No VTE Risk Level:: Medical - moderate - high VTE Device Contraindication: N/A - Device Ordered VTE Drug Contraindication: N/A - Med Ordered
--- NOTE | 2023-07-03 09:29 | PM.DS ---
DS: Providers Provider Date of Service: 07/03/23 Date of admission: 07/01/23 17:02 Primary care physician: Cameron Bell MD Consults: 07/01/23 18:03 Consult to General Surgery Routine Consulting Provider: [facility] [place] General Surgeons Reason for consultation: NVD with reported Mesentric panniculitis on CT for eval and rec. DS: Diagnosis Discharge Diagnosis (1) Mesenteric panniculitis: Status: Acute DS: Summary Hospital Course Hospital Course: from initial hpi: 42 years old male with PMH of nonverbal Autism, fragile X syndrome, cerebral palsy, OCD among others who is presenting wth intractable nausea and vomiting for almost 2 days now. The patient resides at a correction and he is non-verbal and could not contribute to the history. The staff decided to bring him for nausea, vomiting and diarrhea. he started vomiting undigested food and could not keep it down. in ED he was found to have UTI with abnormal CT abdomen showing Mesentric fat abnormalities suggestive of panniculitis. Admitted for further evaluation and treatment. hospital course: Patient was admitted for nausea and vomiting likely secondary to urinary tract infection. Urine culture grew Klebsiella. He was treated with ceftriaxone will be discharged on 5 more days of cefuroxime patient is now tolerating solid diet. For suspicion of mesenteric panniculitis he was seen by General surgery who felt this was. For mood disorder he was continued on hydroxyzine, being, melatonin, clonidine, Ativan. Time Attestation Discharge Coordination Time (in mins): 35 Quality: Safe Use of Opioids Does Pt have an Active Cancer Diagnosis on the Problem List?: No Quality: Stroke Does the patient have a stroke diagnosis?: No Physical Exam Vital Signs: Vital Signs: Last Vital Signs Temp 97.7 F 07/03/23 07:31 Pulse 83 07/03/23 07:31 Resp 18 07/03/23 07:31 BP 116/80 07/03/23 07:31 Pulse Ox 94 07/03/23 07:31 O2 Del Method Room Air 07/03/23 07:31 BMI result Body Mass Index 23.6 Const: General: no acute distress Resp: Effort & Inspection: normal respiratory effort Cardio: Rate: regular rate GI: Palpation (GI): Soft to palpation, not firm, nontender and no guarding DS: Data Data Completed and Pending Labs on day of discharge: Laboratory Results - last 24 hr 07/03/23 05:48 WBC 7.4 RBC 4.73 Hgb 14.4 Hct 40.0 L MCV 84.6 MCH 30.4 MCHC 36.0 RDW 12.9 Plt Count 149 L MPV 9.4 Absolute Nucleated RBC 0.000 Nucleated RBC % (auto) 0.0 Sodium 142 Potassium 3.5 Chloride 110 H Carbon Dioxide 23 Anion Gap 13 BUN 7 L Creatinine 0.71 Estim Creat Clear Calc 132.4 Estimated GFR > 60 Fasting Glucose 103 H Calcium 8.5 Preliminary micro results at discharge 07/01/23 17:17 Blood Culture - Preliminary Blood - Venous No growth after 24 hours. 07/01/23 17:17 Blood Culture - Preliminary Blood - Venous No growth after 24 hours. Discharge Plan Discharge Anticipated Discharge Date/Time: 07/03/23 09:28 Patient Disposition: Xfer Other Discharge Diagnosis: uti Referrals: Name,MD Cameron [Primary Care Provider] - 1 Week Discharge Medications: New cefuroxime axetil 500 mg tablet 500 mg PO BID Qty: 10 0RF Continued acetaminophen 325 mg tablet 650 mg PO Q6H PRN (Reason: Fever Or Pain) cetirizine 10 mg tablet 10 mg PO DAILY olanzapine 2.5 mg tablet 2.5 mg PO DAILY clonidine HCl 0.2 mg tablet 0.2 mg PO BID@0900,1400 lorazepam 0.5 mg tablet 0.5 mg PO DAILY PRN (Reason: Agitation) fluvoxamine 100 mg tablet 200 mg PO DAILY hydroxyzine HCl 25 mg tablet 25 mg PO BEDTIME melatonin 5 mg Tablet 5 mg PO BEDTIME icosapent ethyl [Vascepa] 1 gram capsule 1 g PO DAILY bacitracin 500 unit/gram Ointment 1 appl TOPICAL DAILY PRN (Reason: MINOR CUT, SCRATCHES OR ABRASIONS) benzonatate 100 mg Capsule 100 mg PO TID PRN (Reason: COUGH LASTING LONGER THAN 5 MINUTES) fluvoxamine 100 mg tablet 100 mg PO BEDTIME epinephrine 0.3 mg/0.3 mL Auto-Injector 0.3 mg IM DAILY PRN (Reason: Anaphylaxis) clotrimazole 1 % Cream 1 appl TOPICAL BID Rx Instructions: APPLY TO BILATERAL ARM PITS AND GROIN white petrolatum-mineral oil Cream 1 appl TOPICAL BID [place] 10 % cream 1 appl topical DAILY Discharge Orders: Discharge Order (Routine); Ordered 07/03/23 Ordered By: Jae Crockett Diet: mechanical soft Activity on Discharge: As tolerated Stand Alone Forms: Patient Portal Discharge page Care Plan Goals: recovery Health Concerns: uti Plan of Treatment: ceftin 5 days Assessment: see above
[2023-07-03] MEDS: cloNIDine HCL 0.2 MG TABLET PO ×2 (10:20→15:17)
[2023-07-03] MEDS: Loratadine 10 MG TABLET PO (10:21)
[2023-07-03] MEDS: OLANZapine 2.5 MG TABLET PO (10:21)
[2023-07-03] MEDS: fluvoxaMINE Maleate 50 MG TABLET 200 MG PO (10:22)
[2023-07-03] MEDS: Clotrimazole 1 % Cream 15 GM TUBE 1 APPL TOPICAL (10:29)
[2023-07-03] MEDS: Mineral Oil/Petrolatum,White 106 GM Tube 1 APPL TOPICAL (10:30)
[2023-07-03] MEDS: Lactated Ringers 1,000 ML 80 ML IVCONT (10:33)
--- NOTE | 2023-07-03 10:34 | MHC.CM.PN ---
Addendum entered by Kaia Parson 07/03/23 12:02: VM MESSAGE LEFT FOR P[facility] LEGAL GUARDIAN, KELLI MOTT [phone] INFORMING HER OF DC TIME/PLAN. Addendum entered by Kaia Parson 07/03/23 12:00: PTS SENIOR CARE NURSE, CONSUELO, NOW AT BEDSIDE SHE PROVIDED PTS MED FORMS WHICH WERE COMPLETED AND SIGNED BY MD AND RETURNED TO HER SHE REPORTS THE PT WILL NEED TO GO HOME VIA BLS WHICH IS NOW BOOKED VIA [facility] FOR 1530 HOURS Original Note: PER MD ROUNDS, PT IS EXPECTED TO DC TODAY CM ATTEMPTED TO CONTACT [facility] SENIOR CARE [phone] A VM MESSAGE WAS LEFT REQUESTING A RETURN CALL CM MET WTIH THE STAFF MEMBER AT PTS BEDSIDE, HE REPORTS THIS IS THE ONLY NUMBER HE HAS FOR THEM HE ALSO CONFIRMS THE DID NOT SEND ANY MAP MED FORMS TO BE SIGNED, THEY JUST TOLD HIM TO COME IN CM WILL CONTINUE TO TRY TO REACH A [facility] BOILER OUT
[2023-07-03 15:15] VITALS: BP 109/74; PULSE 83; RESP 18; TEMP 36.2; O2SAT 94
[2023-07-03] MEDS: 0.9 % Sodium Chloride Flush 3 ML SYRINGE IVFLUSH (15:24)
== END 2023-07-03 15:45 | disposition other institution (70) | DRG 690 ==
LOC: HO.ED 16:46 → HO.EDOVER 17:30 → HO.S3 07-02 13:23
PROVIDERS: Physician Assistant; Physician Assistant Medical; Admitting Provider Student in an Organized Health Care Education/Training Program; Emergency Provider Emergency Medicine Emergency Medical Services; PCP Internal Medicine Geriatric Medicine; Visit Provider Internal Medicine
DX: N39.0 Urinary tract infection, site not specified (principal); F84.0 Autistic disorder; K65.4 Sclerosing mesenteritis; F42.9 Obsessive-compulsive disorder, unspecified; B96.1 Klebsiella pneumoniae [K. pneumoniae] as the cause of diseases classified elsewhere; G80.9 Cerebral palsy, unspecified; Q99.2 Fragile X chromosome; Z20.822 Contact with and (suspected) exposure to COVID-19; Z79.899 Other long term (current) drug therapy
CPT/HCPCS: 0241U; 36415; 74176; 80048; 80053; 81001; 83605; 83690; 83735; 85025; 85027; 87040; 87086; 87088; 87186; 99285; J0696; J1650; J2405; J7120

== ENCOUNTER → 2023-07-01 17:02 | Outpatient (BNV) | payer MEDICARE, MEDICAID, SELFPAY | PROVIDERS: Admitting Provider Student in an Organized Health Care Education/Training Program; Emergency Provider Emergency Medicine Emergency Medical Services; PCP Internal Medicine Geriatric Medicine; Visit Provider Surgery | DX: K65.4 Sclerosing mesenteritis (principal) | CPT/HCPCS: 99222; 99232 ==

== ENCOUNTER → 2023-07-01 17:02 | Outpatient (BNV) | payer MEDICARE, MEDICAID, SELFPAY | PROVIDERS: Admitting Provider Student in an Organized Health Care Education/Training Program; Emergency Provider Emergency Medicine Emergency Medical Services; PCP Internal Medicine Geriatric Medicine; Visit Provider Student in an Organized Health Care Education/Training Program | DX: K65.4 Sclerosing mesenteritis (principal) | CPT/HCPCS: 99223; 99232; 99239 ==

== ENCOUNTER 2023-10-04 10:08 | Outpatient (AMB) | payer MEDICARE, MEDICAID, SELFPAY ==
--- NOTE | 2023-10-04 10:34 | MHC.OFFWIV ---
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 Cold sores on lips/?tongue Intake Note: pt is here for cold sore on lips and possible tongue Patient Tobacco Use Status: Never used Tobacco Allergies shellfish derived Allergy (Severe, Verified 10/04/23 10:55) Anaphylaxis egg [EGG] Allergy (Unknown, Verified 10/04/23 10:55) UNKNOWN lactose [LACTOSE] Allergy (Unknown, Verified 10/04/23 10:55) UNKNOWN Medication List - Last Reconciled 10/04/23 by Jewels Horton, [facility] acetaminophen 650 mg PO Q6H PRN bacitracin 1 appl topical DAILY PRN benzoyl peroxide 5% (Acne Medication) topical [[place] 1 appl topical DAILY] cetirizine 10 mg PO DAILY clonidine HCl 0.2 mg PO BID@0900,1400 clotrimazole 1% 1 appl topical BID epinephrine 0.3 mg IM DAILY PRN fluvoxamine 100 mg PO BEDTIME fluvoxamine 200 mg PO DAILY hydroxyzine HCl 25 mg PO BEDTIME icosapent ethyl (Vascepa) 1 g PO DAILY lorazepam 0.5 mg PO DAILY PRN melatonin 5 mg PO BEDTIME neomycin-polymyxin B-dexameth 3.5 mg/g-10,000 unit/g-0.1 % ophthalmic (eye) olanzapine 2.5 mg PO DAILY valacyclovir 1,000 mg PO TID white petrolatum-mineral oil 1 appl topical BID Do you need a note to return to daycare/school/sports/work: Yes HPI HPI Comments History of Present Illness Details 43 years old male with PMH of nonverbal Autism, fragile X syndrome, cerebral palsy, OCD among others who is presenting wth cold sores on lips and tongue. Patient is accompanied by morning caregiver whom reports patient had conjunctivitis of bilateral eyes suspected HSV but r/o by optometrists x 4 days ago started on Valacyclovir 1000 mg po tid which he remains on presently, he is wondering if he can take an additional 1-2 doses prn for new onset cold sores on lips and tongue. 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 [facility] Medical History COVID-19 Tinea corporis Intellectual disability History of pica Leg edema Lactose intolerance Hypertriglyceridemia Fragile X syndrome Cerebral palsy Anxiety OCD (obsessive compulsive disorder) Social History Household Members: Other Household Members Other:: [place] in a [facility] and has 11/11 care Housing: Other Housing Other:: [facility] setting Do you presently have visiting nurse or other home services: Yes Comment: staff from pen[facility]iary in room Patient Tobacco Use Status: Never used Tobacco Advance Directives Date on File: 07/02/23 service: No Review of Systems Const All systems reviewed & are unremarkable except as noted in HPI and below Physical Exam Vital Signs: Last Vital Signs Temp 98.0 F 10/04/23 10:35 Pulse 76 10/04/23 10:35 BP 118/72 10/04/23 10:35 Pulse Ox 98 10/04/23 10:35 Const General: no acute distress and well developed Nutritional Appearance: well nourished Limitations: wheelchair HEENT Head: Yes normocephalic and Yes atraumatic Ears: hearing grossly normal bilaterally and TM's normal bilaterally General nose exam: Normal nasal mucous membranes and turbinates present Face and sinus: Yes sinuses nontender Mouth: moist mucous membranes and lip abnormal (upper and lower lip with dry, non open, non infectious cold sores x 2) Eyes General: appearance normal, both eyes and all related structures Eyelids: Yes eyelids normal Conjunctivae: conjunctivae normal Sclerae: sclerae normal Chest Chest palpation & inspection: normal inspection of the chest Resp Effort & Inspection: normal respiratory effort, no cough, no respiratory distress and not tachypneic Auscultation: clear to auscultation bilaterally, no rhonchi and no wheezes Cardio Rate: regular rate Rhythm: regular rhythm Heart sounds: S1 normal heart sound present and S2 normal heart sound present Peripheral pulses: Peripheral pulses 2+ throughout GI Palpation (GI): Soft to palpation and nontender Auscultation: normal bowel sounds General: Yes no CVA tenderness Back/Spine/Pelvis Back: no CVA tenderness Neuro Other: awake, alert, non-verbal, moves extremities. Psych Appearance: well ket Assessment & Plan Assessment & Plan (1) Primary herpes simplex infection of lips: Code(s): B00.1 - Herpesviral vesicular dermatitis Plan: This is a 43 years old male with PMH of nonverbal Autism, fragile X syndrome, cerebral palsy, OCD accompanied by home care coordinator, with recent conjunctivitis treated with Valacyclovir 1000 mg po tid and more recent developed cold sores of lip and tongue. Physical exam reveals dry healing cold sores. -- Will treat with: - Blistex Medicated lip protectant for comfort tid prn x 3-5 days. - Continue with present Valacyclovir Rx until completed. - Return to office for any worsening or unresolved symptoms. Medications: New lip protectant 0.6-0.5-1.1-0.5 % (Blistex Medicated) apply a small amount to affected area on lips 3 times a day as needed for comfort. 1 ea topical TID 3 days PRN 6 grams 0RF pain, moderate B00.1 - Herpesviral vesicular dermatitis Discontinued cefuroxime axetil Discontinued Reason: Patient Completed Course 500 mg PO BID 10 tabs 0RF Coding Level of Care Code Est Pt Level 2 (66637) Diagnoses Primary herpes simplex infection of lips B00.1
[2023-10-04 10:35] VITALS: BP 118/72; PULSE 76; TEMP 36.7; O2SAT 98
== END 2023-10-04 11:23 | disposition home or self-care (01) ==
PROVIDERS: PCP Internal Medicine Geriatric Medicine; Visit Provider Nurse Practitioner Acute Care
DX: B00.1 Herpesviral vesicular dermatitis (principal)
CPT/HCPCS: 99212

== ENCOUNTER 2023-11-05 09:11 | Outpatient (REF) | payer MEDICARE, MEDICAID, SELFPAY ==
[2023-11-05 11:16] LABS: MANUAL DIFF FLAG NO
[2023-11-05 11:22] LABS: Basophils Absolute Auto 0.1 X10*3/uL (0.0-0.2); Basophils Percent Auto 0.5 % (0-2); Eosinophils Percent Auto 0.4 % (0-4); Hematocrit 49.3 % (42.0-52.0); Hemoglobin 17.6 g/dl (14.0-18.0); Imm Gran Abs Auto 0.06 X10*3/uL (0.00-0.03); Imm Gran Pct Auto 0.6 % (0.0-0.4); Lymphocytes Absolute Auto 1.9 X10*3/uL (1.2-4.9); Lymphocytes Percent Auto 19.9 % (20-40); Mean Corpuscular HGB Conc 35.7 g/dl (31.0-36.0); Mean Corpuscular Hemoglobin 30.7 pg (27.0-33.0); Mean Corpuscular Volume 85.9 fL (80.0-98.0); Monocytes Absolute Auto 0.7 X10*3/uL (0.1-1.2); Monocytes Percent Auto 7.1 % (2-11); Neutrophils Absolute Auto 6.8 x10*3/uL (2.0-8.3); Neutrophils Percent Auto 71.5 % (45-73); Platelet Count 238 X10*3/uL (160-400); Red Blood Count 5.74 X10*6/uL (4.60-5.80); Red Cell Distribution Width 13.7 % (11.0-16.0); White Blood Count 9.5 X10*3/uL (4.8-10.8)
[2023-11-05 11:52] LABS: Alanine Aminotransferase 114 U/L (0-40); Alkaline Phosphatase 77 U/L (39-117); Anion Gap 17 (12-20); Aspartate Amino Transferase 55 U/L (5-37); Bilirubin Total 2.4 mg/dL (0.0-1.0); Blood Urea Nitrogen 16 mg/dL (9-16); Calcium 10.3 mg/dL (8.4-10.2); Carbon Dioxide 20 mmol/L (22-29); Chloride 106 mmol/L (96-108); Cholesterol 155 mg/dL (<200); Estimated Glomerular Filt Rate > 60; Glucose Random 112 mg/dL (60-115); HDL Cholesterol 27 mg/dL (>40); LDL Cholesterol Calculated 62 mg/dL (<100); Potassium 3.9 mmol/L (3.3-5.1); Sodium 139 mmol/L (135-145); Total Protein 8.3 g/dL (6.5-8.0); Triglycerides 334 mg/dL (<150)
[2023-11-05 12:20] LABS: HBS Num1 1.07 mIU/mL (0-7.99); HBsAGNum1 0.28 S/CO (0.00-0.99); Hepatitis B Surface Antigen Negative (Negative); ~Hepatitis B Surface Antibody NONREACTIVE (Nonreactive)
[2023-11-05 12:22] LABS: Hepatitis A Antibody IgG Nonreactive (Nonreactive); ~Hepatitis A Antibody IgG 0.87 S/CO (0.00-0.99)
[2023-11-05 12:35] LABS: Estimated Average Glucose 100 mg/dL; Hemoglobin A1c % 5.1 % (<6.0)
== END 2023-11-05 09:12 | disposition home or self-care (01) ==
LOC: HO.HHCL 09:11
PROVIDERS: Visit Provider Internal Medicine Geriatric Medicine
DX: Z00.00 Encounter for general adult medical examination without abnormal findings (principal); K76.0 Fatty (change of) liver, not elsewhere classified; R63.5 Abnormal weight gain; R74.01 Elevation of levels of liver transaminase levels; R73.9 Hyperglycemia, unspecified; Z11.59 Encounter for screening for other viral diseases
CPT/HCPCS: 36415; 80053; 80061; 83036; 85025; 86706; 86708; 87340

== ENCOUNTER 2023-11-13 08:30 | Outpatient (REF) | payer MEDICARE, MEDICAID, SELFPAY ==
--- NOTE | ~2023-11-13 | US_ITS ---
EXAMINATION: US COMPLETE ABDOMEN WITH LIVER ELASTOGRAPHY CLINICAL INFORMATION: Fatty liver; persistent transaminitis. COMPARISON: CT abdomen and pelvis dated 07/01/2023; MRI abdomen dated 07/18/2022; abdominal ultrasound dated 08/04/2020. TECHNIQUE: Real-time imaging of the abdominal viscera. Noninvasive ultrasound liver fibrosis assessment is performed using [place] ElastPQ point quantification shear wave elastography (pSWE) with a C5-2 MHz transducer. Multiple elastography samples are obtained. FINDINGS: PANCREAS: Normal. The visualized pancreatic head and body are normal in appearance. The remainder of the pancreas is obscured from visualization by the overlying bowel gas. ABDOMINAL AORTA: The proximal, middle, and distal aortic segments are normal in caliber. INFERIOR VENA CAVA: Visualized portions are normal. LIVER: The liver demonstrates increased size, normal contour and increased echogenicity. No focal lesion or intrahepatic biliary duct dilatation. The right lobe measures 19.8 cm in length. The left lobe measures 14.8 cm in length. Portal flow is towards the liver (hepatopetal). Shear wave liver elastography median stiffness is 1.26 m/s (reference: normal median stiffness is 1.3 m/s or less). IQR/median stiffness to assess sampling precision is 0.17 (reference: good quality data set is IQR/median stiffness of 0.15 or less). GALLBLADDER: Normal. The gallbladder is physiologically distended without evidence of stones, sludge, polyps, wall thickening or pericholecystic fluid. COMMON BILE DUCT: Normal in caliber measuring 0.3 cm in diameter. RIGHT KIDNEY: At the lower pole, a 4 mm nonobstructing calculus is seen. No hydronephrosis. No renal calculi or focal parenchymal lesions. The kidney measures 10.8 cm in maximum dimension. At the interpolar aspect laterally, a 1.0 cm benign, simple cyst is seen, for which no imaging follow-up is recommended. LEFT KIDNEY: At the lower pole, a 3 cm nonobstructing calculus is seen. No hydronephrosis. No renal calculi or focal parenchymal lesions. The kidney measures 10.2 cm in maximum dimension. At the interpolar aspect laterally, a 1.5 cm benign, simple cyst is seen, which requires no imaging follow-up. There is an adjacent 1.9 x 1.5 x 1.8 cm mildly complex cyst with septations and small wall calcifications. This shows a mildly complex appearance but correlation with recent cross-sectional imaging, and no further imaging follow-up is recommended. SPLEEN: Normal. The spleen measures 12.1 cm in maximum dimension. FREE FLUID: None. US/US abdomen comp w elastography IMPRESSION: 1. There is hepatomegaly. 2. There is generalized increase in hepatic echotexture, consistent with fatty infiltration or hepatocellular disease. Please correlate clinically. No focal hepatic mass or intrahepatic biliary dilatation is seen. 3. Liver elastography: Although measurements suggest a high probability of normal liver stiffness, there is statistical variability of the sampling which decreases accuracy. 4. There are nonobstructing bilateral renal calculi. REFERENCE: Society of Radiologists in Ultrasound Liver Stiffness Thresholds (2020): LIVER STIFFNESS THRESHOLDS: *Liver Stiffness equal or less than 1.3 m/s: High probability of being normal. *Liver Stiffness less than 1.7 m/s: In the absence of other known clinical signs, rules out compensated advanced chronic liver disease. *Liver Stiffness 1.7-2.1 m/s: Suggestive of compensated advanced chronic liver disease but need further test for confirmation. *Liver Stiffness over 2.1 m/s: Rules in compensated advanced chronic liver disease. *Liver Stiffness over 2.4 m/s: Suggestive of clinically significant portal hypertension. QUALITY OF DATA SET: *IQR/Median value equal or less than 0.15 implies a quality data set. *IQR/Median value over 0.15 implies a poor quality data set. SIGNIFICANT CHANGE FROM PRIOR EXAM: Significant change if liver stiffness measurement is 10% or greater from prior exam. OTHER CONSIDERATIONS: The stage of liver fibrosis may be overestimated in the setting of acute hepatitis, liver inflammation, elevated liver function tests, hepatic vascular congestion, obstructive cholestasis, non-fasting state, and infiltrative diseases such as amyloidosis and lymphoma. In some patients with NAFLD, the liver stiffness thresholds for compensated advanced chronic liver disease may be lower. In causes other than viral hepatitis and NAFLD, liver stiffness thresholds are not well established. Electronically signed by: Darrel Jackson MD 12/15/2023 12:23 AM EDT
== END 2023-11-13 08:31 | disposition home or self-care (01) ==
LOC: HO.US 08:30
PROVIDERS: PCP Internal Medicine Geriatric Medicine; Visit Provider Internal Medicine Geriatric Medicine
DX: K76.0 Fatty (change of) liver, not elsewhere classified (principal); R74.01 Elevation of levels of liver transaminase levels
CPT/HCPCS: 76700; 76981

== ENCOUNTER 2024-04-28 09:34 | Outpatient (REF) | payer MEDICARE, MEDICAID, SELFPAY ==
[2024-05-01 15:13] LABS: TS Negative Control Passed; TS Panel A 0; TS Panel B 0; TS Positive Control Passed; TSpotTB Negative (Negative)
== END 2024-04-28 09:35 | disposition home or self-care (01) ==
LOC: HO.LAB 09:34
PROVIDERS: PCP Internal Medicine Geriatric Medicine; Visit Provider Internal Medicine Geriatric Medicine
DX: Z11.1 Encounter for screening for respiratory tuberculosis (principal)
CPT/HCPCS: 36415; 86481

== ENCOUNTER 2024-06-28 09:04 | Outpatient (REF) | payer MEDICARE, MEDICAID, SELFPAY ==
[2024-06-28 11:26] LABS: MANUAL DIFF FLAG NO
[2024-06-28 11:33] LABS: Basophils Absolute Auto 0.1 X10*3/uL (0.0-0.2); Basophils Percent Auto 0.6 % (0-2); Eosinophils Absolute Auto 0.1 X10*3/uL (0.0-0.4); Eosinophils Percent Auto 0.8 % (0-4); Hematocrit 46.8 % (42.0-52.0); Hemoglobin 16.4 g/dl (14.0-18.0); Imm Gran Abs Auto 0.04 X10*3/uL (0.00-0.03); Imm Gran Pct Auto 0.4 % (0.0-0.4); Lymphocytes Absolute Auto 2.3 X10*3/uL (1.2-4.9); Lymphocytes Percent Auto 23.8 % (20-40); Mean Corpuscular Volume 85.7 fL (80.0-98.0); Mean Platelet Volume 10.1 fL (9.4-12.4); Monocytes Absolute Auto 0.8 X10*3/uL (0.1-1.2); Monocytes Percent Auto 8.1 % (2-11); Neutrophils Absolute Auto 6.4 x10*3/uL (2.0-8.3); Neutrophils Percent Auto 66.3 % (45-73); Platelet Count 220 X10*3/uL (160-400); Red Blood Count 5.46 X10*6/uL (4.60-5.80); Red Cell Distribution Width 13.2 % (11.0-16.0); White Blood Count 9.7 X10*3/uL (4.8-10.8)
[2024-06-28 12:08] LABS: Alanine Aminotransferase 136 U/L (0-40); Albumin Level 4.6 g/dL (3.5-5.0); Alkaline Phosphatase 68 U/L (39-117); Anion Gap 13 (12-20); Aspartate Amino Transferase 66 U/L (5-37); Bilirubin Total 1.5 mg/dL (0.0-1.0); Blood Urea Nitrogen 12 mg/dL (9-16); Calcium 9.6 mg/dL (8.4-10.2); Carbon Dioxide 23 mmol/L (22-29); Chloride 109 mmol/L (96-108); Estimated Glomerular Filt Rate > 60; Glucose Random 98 mg/dL (60-115); Potassium 4.1 mmol/L (3.3-5.1); Sodium 141 mmol/L (135-145); Total Protein 7.8 g/dL (6.5-8.0)
== END 2024-06-28 09:05 | disposition home or self-care (01) ==
LOC: HO.HHCL 09:04
PROVIDERS: Visit Provider Internal Medicine Geriatric Medicine
DX: K76.0 Fatty (change of) liver, not elsewhere classified (principal)
CPT/HCPCS: 36415; 80053; 85025

== ENCOUNTER 2024-07-09 08:34 | Outpatient (REF) | payer MEDICARE, MEDICAID, SELFPAY ==
--- NOTE | ~2024-07-09 | US_ITS ---
CLINICAL HISTORY: fatty liver US abdomen complete Comparison: None Findings: The visualized pancreas is normal. The aorta and inferior vena cava are normal caliber. The appearance of the liver suggests fatty infiltration without focal lesion. There is no intrahepatic bile duct dilatation. The common duct is 3.4 mm in diameter. The gallbladder is normal. There is no sonographic Singh sign. The main portal vein is antegrade. The right kidney is 9.6 cm in length. The left kidney is 9.8 cm in length. There are bilateral renal parenchymal calculi. The spleen is normal. No ascites. IMPRESSION: 1. Hepatic steatosis. This document has been electronically signed by: Gordo Nunez MD on 07/10/2024 06:30:00
--- OUTSIDE RECORDS SUMMARY | 2024-07-09 08:50 | XMS_ITS | Encounter Summary ---
Author Organization [employer] Address [address] [place] [address] 7 [place] [address] Care Team Providers Care Peoplesoft Crm Developer Name Role Phone Name, Cameron DURAN Primary Care Provider [phone] Reason for Visit * Reason Onset Date Comments ER Follow-up 11/18/2022 Medication Question 11/18/2022 Encounter Details Date Type Department Care Team ([facility] st Contact Info) Description 11/18/2022 Telephone [facility] [address] [place], [place] [phone] Name, MD Cameron [address] [place] [address] ER Follow-up; Medication Question Social History Tobacco Use Types Packs/Day Years Used Date Smoking Tobacco: Never Smokeless Tobacco: Never Alcohol Use Standard Drinks/Week Comments Never 0 (1 standard drink = 0.6 oz pur e alcohol) Depression Answer Date Recorded Patient Health Questionnaire-9 Score 0 04/02/2022 Depression Answer Date Recorded Patient Health Questionnaire-2 Score 0 04/02/2022 Sex and Gender Information Value Date Recorded Sex Assigned at Male 02/18/2022 10:19 AM EDT Legal Sex Male 10:19 AM EDT Gender Identity Male 02/18/2022 10:19 AM EDT Sexual Orientation Straight 02/18/2022 10 :19 AM EDT documented as of this encounter Miscellaneous Notes * Telephone Encounter - Mario Mchugh RN - 11/19/2022 1:52 PM EDT T/C to x 1 pm [phone] and [phone] for status check and to offer ED fllow up apt. No answer. LVM to call back on [phone]. * Telephone Encounter - Britany Leslie - 11/18/2022 10:50 AM EDT Patient calling to report ED visit on 11/17/22 at [facility]. Seen for irritated eye. Patient advised will forward to team nurse for follow up. Patients patient care technician is also requesting a call back, in regards to medication questions. documented in this encounter Plan of Treatment Upcoming Encounters Date Type Department Care Team (Late st Contact Info) Description 09/16/2024 11:15 AM EDT Office Visit [facility] [address] [place] [phone] Name, MD Cameron [address] [place] [phone] documented as of this encounter Visit Diagnoses Not on filedocumented in this encounter Additional Health Concerns Assessment Noted Time PHQ-9 Depression Total Score: 0 04/02/20 22 11:16 AM EST documented as of this encounter Care Teams Peoplesoft Crm Developer Relationship Specialty Start Date End Date Name, MD Cameron [address] [place] [phone] PCP - General Family Medicine 06/21/15 documented as of this encounter
--- OUTSIDE RECORDS SUMMARY | 2024-07-09 08:50 | XMS_ITS | Encounter Summary ---
Author Organization [employer] Address [address] [place] [address] 7 [place] [address] Care Team Providers Care Ore Roaster Name Role Phone Name, Cameron DURAN Primary Care Provider [phone] Reason for Visit * Reason Onset Date Comments Durable Medical Equipment 06/19/2022 Encounter Details Date Type Department Care Team ([facility] st Contact Info) Description 06/19/[address] [facility] [address] [place], [place] [phone] Name, MD Cameron [address] [place] [address] Durable Medical Equipment Social History Tobacco Use Types Packs/Day Years [...] encounter Miscellaneous Notes * Telephone Encounter - Teressa Powers - 06/19/2022 11:40 AM EST Script for pull ups generated for providers signature * Telephone Encounter - Tony Sawant - 06/19/2022 11:21 AM EST Tc from pt requesting a new script for pulls up size Large. Pt requesting for script to be send to [facility] documented in this encounter Plan of Treatment Upcoming Encounters Date Type Department Care Team (Late st Contact Info) Description 09/16/2024 11:15 AM EDT Office Visit [facility] [address] [place] [address] Name, MD Cameron [address] [place] [phone] documented as of this encounter Visit Diagnoses Not on filedocumented in this encounter Additional Health Concerns Assessment Noted Time PHQ-9 Depression Total Score: 0 04/02/20 22 11:16 AM EST documented as of this encounter Care Teams Ore Roaster Relationship Specialty Start Date End Date Name, MD Cameron [address] [place] [phone] PCP - General Family Medicine 06/21/15 documented as of this encounter
--- OUTSIDE RECORDS SUMMARY | 2024-07-09 08:50 | XMS_ITS | Encounter Summary ---
Author Organization [employer] Address [address] [facility] 7t [place] [address] Care Team Providers Care Mill Washer Name Role Phone Name, Cameron DURAN Primary Care Provider [phone] Encounter Details Date Type Department Care Team ([facility] st Contact Info) Description 06/20/2023 Telephone [facility] [address] [place] [address] Name, MD Cameron [address] [place], [place] [phone] Social History Tobacco Use Types Packs/Day Years Used Date Smoking Tobacco: Never Smokeless Tobacco: Never Alcohol Use Standard Drinks/Week Comments Never 0 (1 standard drink = 0.6 oz pur e alcohol) Depression Answer Date Recorded Patient Health Questionnaire-9 Score 0 04/02/2022 Housing Stability Answer Date Recorded What is your housing situation today? I have shaheedkrystian avelar 02/06/[address] you li ve. Do you have problems with any of the following? None of the above 02/06/2023 Food Insecurity Answer Date Recorded Within the past 12 months, y ou worried that your food would run out before you got money to buy more: Never True 02/06/2023 Within the past 12 months,th e food you bought just didn't last and you didn't have enough money to get more: Never True Transportation Answer Date Recorded In the past 12 months, has l ack of transportation kept you from medical appts, meetings, work or from getting things needed for daily living? No 02/06/2023 Utilities Answer Date Recorded In the past 12 months, has t he electric, gas, oil or water company threatened to shut off services in your home? No 02/06/2023 Depression Answer Date Recorded Patient Health Questionnaire-2 Score 0 06/18/2023 Sex and Gender Information Value Date Recorded Sex Assigned at Male 02/18/2022 10:19 AM EDT Legal Sex Male 10:19 AM EDT Gender Identity Male 02/18/2022 10:19 AM EDT Sexual Orientation Straight 02/18/2022 10 :19 AM EDT documented as of this encounter Miscellaneous Notes * Telephone Encounter - Mario Mchugh RN - 06/20/2023 4:42 PM EST Meds. Send to pharmacy. * Telephone Encounter - Glendy Buchanan - 06/20/2023 2:08 PM EST Tc from [place] with DDS requesting for valACYclovir (Valtrex) 1 g tablet to state PRN. Please clarify Please contact nelson at [phone] documented in this encounter Plan of Treatment Upcoming Encounters Date Type Department Care Team (Late st Contact Info) Description 09/16/2024 11:15 AM EDT Office Visit [facility] [address] [place] [phone] Name, MD Cameron [address] [place] [address] documented as of this encounter Visit Diagnoses Not on filedocumented in this encounter Additional Health Concerns Assessment Noted Time PHQ-9 Depression Total Score: 0 04/02/20 22 11:16 AM EST documented as of this encounter Care Teams Mill Washer Relationship Specialty Start Date End Date NameCameron MD [address] [place] [phone] PCP - General Family Medicine 06/21/15 documented as of this encounter
--- OUTSIDE RECORDS SUMMARY | 2024-07-09 08:50 | XMS_ITS | Encounter Summary ---
Author Organization [email or web address] Address [address] [place] [address] 7t [place] [address] Care Team Providers Care Rn Cardiac Cath Name Role Phone Name, Cameron DURAN Primary Care Provider [phone] Reason for Visit * Reason Onset Date Comments Durable Medical Equipment 04/30/2022 Encounter Details Date Type Department Care Team ([facility] st Contact Info) Description 04/30/2022 Telephone [facility] [address] [place], [place] [phone] Name, MD Cameron [address] [place] [address] Durable Medical Equipment Social History Tobacco Use [...] Orientation Straight 02/18/2022 10 :19 AM EDT COVID-19 Exposure Response Date Recorded In the last 10 days, have yo u been in contact with someone who was confirmed or suspected to have Coronavirus/COVID-19? No / Unsure 04/02/2022 10:47 AM EST documented as of this encounter Miscellaneous Notes * Telephone Encounter - Monika Ruiz RN - 05/01/2022 11:53 AM EST T/C placed to forms department. Ina states not able to locate requested order at this time. Advised pcp willing to sign once he returns to clinic. T/C to snf. Advised pcp not in clinic today. assisted requests order to be faxed to [phone]. Advised will fax when pcp signs. * Telephone Encounter - Teressa Powers - 04/30/2022 1:44 PM EST Script for compression stockings 2qty faxed to [facility]. Susannah notified. * Telephone Encounter - Tony Sawant - 04/30/2022 11:58 AM EST Tc from Susannah requesting new script for compression socks stating 2 pair of compression socks send over to [facility] documented in this encounter Plan of Treatment Upcoming Encounters Date Type Department Care Team (Late st Contact Info) Description 09/16/2024 11:15 AM EDT Office Visit [facility] [address] [place] [phone] Name, MD Cameron [address] [place] [address] documented as of this encounter Visit Diagnoses Not on filedocumented in this encounter Additional Health Concerns Assessment Noted Time PHQ-9 Depression Total Score: 0 04/02/20 22 11:16 AM EST documented as of this encounter Care Teams Rn Cardiac Cath Relationship Specialty Start Date End Date Name, MD Cameron [address] [place] [phone] PCP - General Family Medicine 06/21/15 documented as of this encounter
--- OUTSIDE RECORDS SUMMARY | 2024-07-09 08:50 | XMS_ITS | Encounter Summary ---
Author Organization [employer] Address [address] [place] [address] 7t [place] [address] Care Team Providers Care Gas Plant Specialist Name Role Phone Name, Cameron DURAN Primary Care Provider [phone] Reason for Visit * Reason Onset Date Comments Nurse Triage 04/29/2023 Encounter Details Date Type Department Care Team ([facility] st Contact Info) Description 04/29/2023 Telephone [facility] [address] [place], [place] [phone] Name, MD Cameron [address] [place], [place] [phone] Nurse Triage Social History Tobacco Use Types Packs/Day Years Used Date Smoking Tobacco: Never Smokeless Tobacco: Never Alcohol Use Standard Drinks/Week Comments Never 0 (1 standard drink = 0.6 oz pur e alcohol) Depression Answer Date Recorded Patient Health Questionnaire-9 Score 0 04/02/2022 Housing Stability Answer Date Recorded What is your housing situation today? I have shaheed avelar 02/06/[address] you [...] Telephone Encounter - Mario Mchugh RN - 04/30/2023 3:57 PM EST T/C to [phone] for below message, pt. Schedule for Tele. Visit at 5.40 pm ( Discussed with Employee Relations Specialist and Walk in center Nurse ) to go over possible drug interaction with Plaxovid and further evaluation. Marina verbally agreed and understood. Pt. Was diagnosed for COVID on 04/29/2023. * Telephone Encounter - Mario Mchugh RN - 04/30/2023 2:52 PM EST T/C to [phone] for status check and further investigation for symptom, no answer. POLLY mercedes asking for Plaxovid. Pt. Was diagnosed for COVID on 04/29/2023 , Please review and advise if needed. * Telephone Encounter - Marquis Goode - 04/30/2023 12:27 PM EST Tc from POLLY hameed from intermediate requesting a script for Paxlovid pt tested positive 04/29/23 andwas advised to contact phone number provided for medication however states that is a program and was directed to have PCP sign off on script. Please see previous notes. Please contact at [phone] or please call intermediate [phone] ask for a MAT certified staffmember * Telephone Encounter - Rocio Pettit RN - 04/29/2023 2:29 PM EST Triage call some one answered the phone and handed it to Nurse Marina. Pt is in a intermediate. Pttested + today 04/29/23 for Covid. Pt only symptom is tiredness/fatigue. Temp is 97.6 this morning. Home care advice given , nurse Michelle is already aware of advice. There is request for paxlovid. 3rd green party televisit number [phone] is given and advised to have list of medications and vitamins ready. No further questions offered. Protocol Used: COVID-19 - Diagnosed or Suspected (Adult) Protocol-Based Disposition: Home Care Positive Triage Question: * COVID-19 diagnosed by positive lab test (e.g., PCR, rapid self-test kit) and mild symptoms (e.g.,cough, fever, others) and no complications or SOB * All higher-acuity triage questions were negative Care Advice Discussed: * Reassurance and Education - Positive COVID-19 Lab Test and Mild Symptoms * COVID-19 - How to Protect Others - When You Are Sick With COVID-19 * Telephone Encounter - Alvin Roberson - 04/29/2023 1:59 PM EST Symptom: COVID-19 positive on 04/29/2023 Outcome: Schedule a same-day appointment or talk to a nurse or provider today Reason: Caller denied all higher acuity questions The caller accepted this outcome documented in this encounter Plan of Treatment Upcoming Encounters Date Type Department Care Team (Late st Contact Info) Description 09/16/2024 11:15 AM EDT Office Visit [facility] [address] [place] [phone] Name, MD Cameron [address] [place] [address] documented as of this encounter Visit Diagnoses Not on filedocumented in this encounter Additional Health Concerns Assessment Noted Time PHQ-9 Depression Total Score: 0 04/02/20 22 11:16 AM EST documented as of this encounter Care Teams Gas Plant Specialist Relationship Specialty Start Date End Date Name, MD Cameron [address] [place] [address] PCP - General Family Medicine 06/21/15 documented as of this encounter
--- OUTSIDE RECORDS SUMMARY | 2024-07-09 08:50 | XMS_ITS | Clinical Summary ---
Author Organization [employer] Address [address] [place] [address] 7[address] [place] [address] Care Team Providers Care Family Support Coordinator Name Role Phone Name, Cameron DURAN Primary Care Provider [phone] Allergies Active Allergy Reactions Criticality Noted Date Comments Egg White (Egg Protein) 11/17/2022 Other Reaction(s): UNKNOWN Lactose 07/01/2023 Other Reaction(s): UNKNOWN Shellfish Allergy Anaphylaxis High 07/01/2023 Shrimp Flavor Agent (Non-Screening) 04/02/2022 Medications OLANZapine (ZyPREXA) 2.5 MG tablet take 1/2 tablet by oral route every day 2015 Active cloNIDine (Catapres) 0.2 MG tablet Take 1 tablet by mouth every 48 hours. Active fluvoxaMINE (Luvox) 100 MG tablet Take 100 mg by mouth See administration instructions. 200mg AM and 100mg PM 2018 Active EPINEPHrine (Epipen) 0.3 MG/0.3ML injection syringe USE DIRECTED FOR ANAPHYLAXIS KEEP ON HAND AT ALL TIMES IC: EPIPEN 2 each 2022 Active melatonin 5 MG tablet Take 1 tablet by mouth at bedtime. 2023 Active hydrocortisone 2.5 % cream Apply topically 2 times daily. Thin layer to the neck as needed for eczema rash for 10 days and notify MD if not resolved 28 g 2 2023 Active Acne Medication 5 5 % gel APPLY A PEA SIZED AMOUNT TOPICALLY TWICE DAILY 42.5 g 2 2023 Active clotrimazole (Lotrimin) 1 % cream APPLY A THIN LAYER TOPICALLY TO BILATERAL ARMPITS TWICE DAILY AND APPLY A THIN LAYER TOPICALLY TO GROIN TWICE DAILY FOR RASH / CLOTRIMAZOLE 1% 30 g 4 2023 Active Skin Protectants, Misc. (Eucerin Original Healing) cream APPLY TOPICALLY TO BODY TWICE DAILY FOR DRY SKIN 454 g 3 2023 Active PanOxyl Foaming Wash 10 % external washIndications :Acne vulgaris APPLY TOPICALLY TWICE DAILY SPECIAL INSTRUCTIONS: WASH FOR FACE 156 g 3 2023 Active clindamycin (Cleocin T) 1 % lotionIndicatio ns:Acne vulgaris Apply topically 2 times daily. Apply to face 60 mL 11 04/02 Active cetirizine (ZyrTEC) 10 MG tablet TAKE 1 TABLET (10 MG) BY MOUTH DAILY IN THE MORNING FOR ITCH GIVE WITH APPLESAUCE 30 tablet 5 2024 Active Vascepa 1 g capsuleIndicati ons:High triglycerides TAKE 1 CAPSULE (1 GM) BY MOUTH DAILY IN THE MORNING WITH FOOD FOR HYPERTRIGLYCERIDEMIA / DO NOT CHEW, OPEN, DISSOLVE, OR CRUSH 30 capsule 5 2024 Active GNP Bacitracin Zinc 500 UNIT/GM ointment APPLY A THIN LAYER TOPICALLY TWICE DAILY NEEDED FOR MINOR CUTS, SCRATCHES, OR ABRASIONS FOR 7 DAYS / NOTIFY MD IF NO IMPROVEMENT 28.4 g 1 2024 Active hydrOXYzine HCl (Atarax) 25 MG tabletIndicatio ns:Tinea corporis TAKE 1 TABLET (25 MG) BY MOUTH DAILY AT BEDTIME AN ANTIHISTAMINE / GIVE WITH APPLESAUCE 30 tablet 2 2024 Active acetaminophen (Tylenol) 325 MG tablet TAKE 2 TABS (650 MG) BY MOUTH EVERY 6 HRS NEEDED-JOINT PAIN HEADACHE, BODY ACHES OR TEMP OF 100 F OR HIGHER/MAX 4 DOSES/24HR GIVE W/ APPLESAUCE/SEE ANCILLARY 120 tablet 5 2024 Active acetaminophen (Tylenol) 325 MG tablet TAKE 2 TABS (650 MG) BY MOUTH EVERY 6 HRS NEEDED-JOINT PAIN HEADACHE, BODY ACHES OR TEMP OF 100 F OR HIGHER/MAX 4 DOSES/24HR GIVE W/ APPLESAUCE/SEE ANCILLARY 120 tablet 5 06/24 Discontinued Active Problems Problem Noted Date Diagnosed Date Ocular herpes zoster 10/02/2023 Assessment & Plan (10/02/2023 8:22 AM EDT): Pt w vesicular rash of right eye Pt has hx of herpes labialis and per licensed staff mft she thinks a year ago pt has herpetic rash in eye as well -concern for herpes zoster ophthalmicus (HZO) -I called pt's dimensional integration engineer and obtained apt for pt to be seen today at 1h15 pm - RN will take pt to apt -start immediately valacyclovir 1 gr TID for 10 days -will need to consdier for daily supressive tx if having mx recurrence -may need steroirds to follow w dimensional integration engineer today to decide -Spoke w [place] today to try to get earlier apt w PCP or any provider for f up as sick visit for 10 days -Alarm signs and symptoms discussed Acute UTI 07/17/2023 Irritation of right eye 07/17/2023 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 Swelling of lower limb 07/31/2016 Tinea corporis 07/31/2016 Cerebral palsy 10/22/2011 Encounters Date Type Department Care Team Description 07/02/2024 Population Health Risk Score [facility] (C[facility]) Department [address] [facility] [address] [place] [id number] Provider, Population Health Generic 06/24/2024 Refill [facility] [address] [place] [address] Name, MD Cameron 06/16/2024 10:45 AM EST Office Visit [facility] [address] [place] [address] Name, MD Cameron Fatty liver (Primary Dx) 06/16/2024 Travel 05/26/2024 Refill [facility] [address] [place] [phone] NameCameron MD Tinea corporis 05/19/2024 Refill [facility] [address] [place] [address] NameCameron MD High triglycerides 05/18/2024 3:00 PM EST Nurse Only [facility] [address] [place] [phone] Shelly Bautista LPN Encounter for immunization (Primary Dx) 05/18/2024 Travel 05/17/2024 Refill [facility] [address] [place] [phone] NameCameron MD 05/05/2024 Refill [facility] [address] [place] [address] NameCameron MD Tinea corporis 04/20/2024 Telephone [facility] [address] [place] [address] NameCameron MD TB Test Order 04/15/2024 Telephone [facility] [address] [place] [phone] Mayo Dickinson [place] feb recalls from Last 3 Months Immunizations Name Administration Dates Next Due DTaP 04/22/2006 Hep A, Adult 11/11/2023,10/04/2022 Hep B, Adolescent or Pediatric 11/21/1997,1997,12/27/1996 Hep B, adult 05/18/2024,12/17/2023,11/11/2023 Influenza injectable quadriv alent IIV4 with preservative 05/27/2017 Influenza injectable quadriv alent preservative free 01/10/2021,04/03/2018 Influenza, Split (incl. alexander fied surface antigen) 12/25/2012 Influenza, seasonal, injecta ble, preservative free 02/19/2024,04/02/2022 MMR 02/11/1995 Pfizer Covid-19 Vaccine 12+ 04/06/2021,,05/25/2020 Pfizer Covid-19 Vaccine 12+ Bivalent 04/02/2022 Pneumococcal Conjugate PCV 20 10/04/2022 TD (adult), 2 Lf tetanus tox oid, preservative free, adsorbed 09/20/1996 Td (adult), 5 Lf tetanus tox oid, preservative free, adsorbed 11/26/2016 Tdap 05/22/2006 Social History Tobacco Use Types Packs/Day Years Used Date Smoking Tobacco: Never Smokeless Tobacco: Never Tobacco Cessation:Counseling Given: No Alcohol Use Standard Drinks/Week Comments Never 0 (1 standard drink = 0.6 oz pur e alcohol) Depression Answer Date Recorded Patient Health Questionnaire-9 Score 0 04/02/2022 Housing Stability Answer Date Recorded What is your housing situation today? I have shaheed avelar 11/04/[address] you li ve. Do you have problems with any of the following? None of the above 11/04/2023 Food Insecurity Answer Date Recorded Within the past 12 months, y ou worried that your food would run out before you got money to buy more: Never True 11/04/2023 Within the past 12 months,th e food you bought just didn't last and you didn't have enough money to get more: Never True Transportation Answer Date Recorded In the past 12 months, has l ack of transportation kept you from medical appts, meetings, work or from getting things needed for daily living? No 11/04/2023 Utilities Answer Date Recorded In the past 12 months, has t he electric, gas, oil or water company threatened to shut off services in your home? No 11/04/2023 Depression Answer Date Recorded Patient Health Questionnaire-2 Score 0 06/18/2023 Internet Access Answer Date Recorded Internet Access Q1 No 12/22/2023 Internet Access Q2 I do not want or need it 05/2023 Sex and Gender Information Value Date Recorded Sex Assigned at Male 02/18/2022 10:19 AM EDT Legal Sex Male 10:19 AM EDT Gender Identity Male 02/18/2022 10:19 AM EDT Sexual Orientation Straight 02/18/2022 10 :19 AM EDT Last Filed Vital Signs Vital Sign Reading Time Taken Comments Blood Pressure 104/65 06/16/2024 10:47 AM EST Pulse 72 06/16/2024 10:47 AM EST Temperature 36.3 ??C (97.3 ??F) 06/16/2024 10:[address] Respiratory Rate 22 06/16/2024 10:47 AM EST Oxygen Saturation 98% 06/16/2024 10:47 AM EST Inhaled Oxygen Concentration - - Weight 66.7 kg (147 lb) 06/16/2024 10:47 AM EST Height 167.6 cm (5' 6 ) 06/16/2024 10:47 AM EST Body Mass Index 23.73 06/16/2024 10:47 AM EST Plan of Treatment Upcoming Encounters Date Type Department Care Team (Late st Contact Info) Description 09/16/2024 11:15 AM EDT Office Visit [facility] [address] [place], [place] [phone] Name, MD Cameron [address] [place] [address] Health Maintenance Due Date Last Done Comments Family Planning (PISQ) 1996 COVID-19 Vaccine ( season) 2023 04/02/2022, 04/06/2021, 06/26/2020, Additional history exists Depression Screening 06/18/2024 06/18/2023, 04/02/20 Alcohol/Substance Use Screening 11/03/2024 11/04/2023 SDOH Screening 11/03/2024 11/04/2023 Tobacco Screening 06/16/2025 06/16/2024 DTaP/Tdap/Td Vaccines (5 - Td or Tdap) 11/26/2026 11/26/2016, 05/22/2006, 04/22/2006, Additional history exists Lipid Panel 11/04/2028 11/05/2023, 10/10/2022 Zoster Vaccines (1 of 2) 08/09/2031 RSV Patients and Patients Aged 60 years or older (1 - 1-dose 75+ series) 2056 HIV Screening Completed 10/02/2021 Hepatitis C Screening Completed 10/02/2021 Pneumococcal Vaccine: Pediatrics (0 to 5 Years) and At-Risk Patients (6 to 49) Years) Aged Out 10/04/2022 No longer eligible based on patient's age to complete this topic Hepatitis A Vaccines Completed 11/11/2023, 10/05/19 Influenza Vaccine Completed 02/19/2024, , 01/10/2021, Additional history exists Hepatitis B Vaccines Completed 05/18/2024, 12/17/2023, 11/11/2023, Additional history exists HIB Vaccines Aged Out No longer eligi ble based on patient's age to complete this topic HPV Vaccines Aged Out No longer eligi ble based on patient's age to complete this topic IPV Vaccines Aged Out No longer eligi ble based on patient's age to complete this topic Meningococcal Vaccine Aged Out No roney yonatan eligible based on patient's age to complete this topic RSV under 20 months Aged Out No longe r eligible based on patient's age to complete this topic Rotavirus Vaccines Aged Out No longer eligible based on patient's age to complete this topic Procedures Procedure Name Priority Date/Time Associated Diagnosis Comments COMPREHENSIVE METABOLIC PANEL Routine 06/28/2024 9:06 AM EDT Fatty liver CBC WITH AUTO DIFFERENTIAL Routine 06/28/2024 9:06 AM EDT Fatty liver T-SPOT(R).TB Routine 04/28/2024 9:56 AM EST Screening for tuberculosis LIPID PANEL, STANDARD Routine 11/05/2023 9:14 AM EDT Fatty liver Weight gain PE (physical exam), routine Transaminitis Need for hepatitis B screening test Hyperglycemia ZZZ HISTORICAL HEPATITIS C ANTIBODY RFLX Routine 10/02/2021 8:59 AM EDT ZZZ HISTORICAL HIV AB/AG Routine 10/02/2021 8:59 AM EDT from Last 3 Months or Most Recently Relevant to Health Maintenance Results * (ABNORMAL) CBC auto differential (06/28/2024 9:06 AM EDT) White Blood Count 9.7 4.8 - 10.8 X10*3/uL [facility] Red Blood Count 5.46 4.60 - 5.80 X10*6/uL [facility] Hemoglobin 16.4 14.0 - 18.0 g/dl [facility] Hematocrit 46.8 42.0 - 52.0 % [facility] Mean Corpuscular Volume 85.7 80.0 - 98.0 fL [facility] Mean Corpuscular Hemoglobin 30.0 27.0 - 33.0 pg [facility] Mean Corpuscular HGB Conc 35.0 31.0 - 36.0 g/dl [facility] Red Cell Distribution Width 13.2 11.0 - 16.0 % [facility] Platelet Count 220 160 - 400 X10*3/uL [facility] Mean Platelet Volume 10.1 9.4 - 12.4 fL [facility] Neutrophils Percent Auto 66.3 45 - 73 % [facility] Imm Gran Pct Auto 0.4 0.0 - 0.4 % [facility] Lymphocytes Percent Auto 23.8 20 - 40 % [facility] Monocytes Percent Auto 8.1 2 - 11 % [facility] Eosinophils Percent Auto 0.8 0 - 4 % [facility] Basophils Percent Auto 0.6 0 - 2 % [facility] NRBC Pct Auto 0.0 0.0 - 0.2 /100WBC [facility] Neutrophils Absolute Auto 6.4 2.0 - 8.3 x10*3/uL [facility] Imm Gran Abs Auto 0.04(H) 0.00 - 0.03 X10*3/uL [facility] Lymphocytes Absolute Auto 2.3 1.2 - 4.9 X10*3/uL [facility] Monocytes Absolute Auto 0.8 0.1 - 1.2 X10*3/uL [facility] Eosinophils Absolute Auto 0.1 0.0 - 0.4 X10*3/uL [facility] Basophils Absolute Auto 0.1 0.0 - 0.2 X10*3/uL [facility] NRBC Abs Auto 0.000 0.0 - 0.012 X10*3/uL [facility] Blood Venous blood specimen / Unknown 06/28/2024 9:06 AM EDT 06/28/2024 11:24 AM EDT us Cameron Bell MD LAB BLOOD ORDERABLES Final Resul t [facility] [address] [place], [place] [phone] * (ABNORMAL) Comprehensive Metabolic Panel (06/28/2024 9:06 AM EDT) Sodium 141 135 - 145 mmol/L [facility] Potassium 4.1 3.3 - 5.1 mmol/L [facility] Chloride 109(H) 96 - 108 mmol/L [facility] Carbon Dioxide 23 22 - 29 mmol/L [facility] Anion Gap 13 12 - 20 [facility] Urea Nitrogen (BUN) 12 9 - 16 mg/dL [facility] Creatinine, Serum 0.76 0.5 - 1.4 mg/dL [facility] Estimated Glomerular Filt Rate >60 [facility] Comment:Chronic Kidney Disea se: Estimated GFR < 60 mL/min/[id number] Kidney Disease: Estimated GFR < 15 mL/min/1.73m2 Glucose 98 60 - 115 mg/dL [facility] Calcium 9.6 8.4 - 10.2 mg/dL [facility] Bilirubin, Total 1.5(H) 0.0 - 1.0 mg/dL [facility] Aspartate Amino Transferase 66(H) 5 - 37 U/L [facility] Alanine Aminotransferase 136(H) 0 - 40 U/L [facility] Total Protein 7.8 6.5 - 8.0 g/dL [facility] Albumin Level 4.6 3.5 - 5.0 g/dL [facility] Alkaline Phosphatase 68 39 - 117 U/L [facility] Blood Venous blood specimen / Unknown 06/28/2024 9:06 AM EDT 06/28/2024 11:24 AM EDT Cameron Bell MD LAB BLOOD ORDERABLES Final Resul t Performing Organization Address [facility] Co de Phone Number [facility] [address] [place] [phone] * T-SPOT??.TB (04/28/2024 9:56 AM EST) Pathologist [facility] T Spot TB Negative Negative [facility] Comment:A negative test resu lt does not exclude the possibilityof exposure to or infection with Mycobacteriumtuberculosis (M. tuberculosis). Patients with recentexposure to TB infected individuals exhibiting anegative T-SPOT.TB result should be considered forretesting within 6 weeks or if other relevant clinicalsymptoms indicate. Results from T-SPOT.TB testing mustbe used in conjunction with each individual'sepidemiological history, current medical status,and results of other diagnostic evaluations.The T-SPOT.TB test is qualitative and results arereported as positive, borderline, or negative, giventhat the test controls perform as expected. In linewith the Centers for Disease Control and Prevention's2010 recommendation to report quantitative measurementsalongside the qualitative result, the laboratoryprovides spot counts for informational purposes only.The T-SPOT.TB test should not be interpreted as aquantitative test. TS PANEL A 0 [facility] TS PANEL B 0 [facility] Negative Control Passed [facility] Positive Control Passed [facility] Comment:For additional infor courtney, please refer tohttp://education.GiveMeSport/faq/GWA742(This link is being provided for informational/educational purposes only.)THIS TEST WAS PERFORMED AT:[facility] [id number] [place] [address]FHRUSMMGUERITA CORNELIUS MD,PHD 04/28/2024 9:56 AM EST 04/28/2024 9:56 AM EST us Cameron Bell MD LAB BLOOD ORDERABLES Final Resul t Performing Organization Address [facility] Co de Phone Number [facility] [address] [place] [address] [phone] * (ABNORMAL) Lipid Panel, Standard (11/05/2023 9:14 AM EDT) Triglycerides 334(H) <150 mg/dL [facility] Comment:Desirable Triglyceri de: less than 150 mg/dLBorderline High Triglyceride 150-199 mg/dLHigh Triglyceride: 200-499 mg/dLVery High Triglyceride: greater than or equal to 5OO mg/dL Cholesterol 155 <200 mg/dL [facility] Comment:Desirable Cholestero l: less than 200 mg/dLBorderline High Cholesterol: 200-239 mg/dLHigh Cholesterol: greater than 239 mg/dL LDL Cholesterol Calculated 62 <100 mg/dL [facility] Comment:Desirable LDL: less than 100 mg/dLNear Optimal/Above Optimal LDL: 110- 129 mg/dLBorderline High LDL: 130-159 mg/dLHigh LDL: 160-189 mg/dLVery High LDL: greater than or equal to 190 mg/dL HDL Cholesterol 27(L) >40 mg/dL [facility] Comment:Desirable HDL: great er than 40 mg/dL Note: This HDL assay may give artificially low results in patients with liver disease. Blood Venous blood specimen / Unknown 11/05/2023 9:14 AM EDT 11/05/2023 11:12 AM EDT us Cameron Bell MD LAB BLOOD ORDERABLES Final Resul t Performing Organization Address City[facility]/ZIP Co de Phone Number [facility] [address] [place] [address] [phone] * HEPATITIS C ANTIBODY RFLX (10/02/2021 8:59 AM EDT) Hepatitis C Antibody Nonreactive Nonreactive [facility] Comment: Antibodies to HCV not detected; does not exclude early acute HCV infection. 10/02/2021 8:59 AM EDT us Cameron Bell MD HISTORICAL/NON ORDERABLE LABS Fi nal Result Performing Organization Address [facility] Co de Phone Number [facility] [address] * HIV AB/AG (10/02/2021 8:59 AM EDT) [facility] HIV AB/AG Nonreactive Nonreactive [facility] Comment: HIV-1 p24 Ag and/or HIV-1/HIV-2 Ab not detected. ?? A test result that is nonreactive does not exclude the possibility of exposure to or infection with HIV-1 and/or HIV-2. Nonreactive results in this assay for individuals with prior exposure to HIV-1 and/or HIV-2 may be due to antigen and antibody levels that are below the limit of detection of this assay. ?? [facility] HIV Ag/Ab Combo assay result and supplemental assay results should be interpreted in conjunction with the patient's clinical presentation, history and other laboratory results. ??If the results are inconsistent with clinical evidence, additional testing is suggested to confirm the result. 10/02/2021 8:59 AM EDT us Cameron Name HISTORICAL/NON ORDERABLE LABS Fi nal Result Performing Organization Address [facility] de Phone Number [facility] [address] from Last 3 Months or Most Recently Relevant to Health Maintenance Insurance [facility] STANDARD [place] [phone] Care Teams Family Support Coordinator Relationship Specialty Start Date End Date Name, MD Cameron [address] [place] [phone] PCP - General Family Medicine 06/21/15
--- OUTSIDE RECORDS SUMMARY | 2024-07-09 08:50 | XMS_ITS | Encounter Summary ---
Author Organization [employer] Address [address] [facility] [address]t [place] [address] Care Team Providers Care Protection Mgr Name Role Phone Name, Cameron DURAN Primary Care Provider [phone] Reason for Visit * Reason Comments Med Refill Encounter Details Date Type Department Care Team (Late st Contact Info) Description 10/01/2023 Refill [facility] [address] [place], [place] [phone] Name, MD Cameron [address] [place] [address] Social History Tobacco Use Types Packs/Day Years [...] AM EDT documented as of this encounter Plan of Treatment Upcoming Encounters Date Type Department Care Team (Late st Contact Info) Description 09/16/2024 11:15 AM EDT Office Visit [facility] [address] [place] [phone] Name, MD Cameron [address] [place] [phone] documented as of this encounter Visit Diagnoses Not on filedocumented in this encounter Additional Health Concerns Assessment Noted Time PHQ-9 Depression Total Score: 0 04/02/20 22 11:16 AM EST documented as of this encounter Care Teams Protection Mgr Relationship Specialty Start Date End Date Name, MD Cameron [address] [place] [phone] PCP - General Family Medicine 06/21/15 documented as of this encounter
--- OUTSIDE RECORDS SUMMARY | 2024-07-09 08:50 | XMS_ITS | Encounter Summary ---
Author Organization [employer] Address [address] [facility] [address] [place] [address] Care Team Providers Care Manager Pool Name Role Phone Name, Cameron DURAN Primary Care Provider [phone] Reason for Visit * Reason Comments Med Refill Encounter Details Date Type Department Care Team (Late st Contact Info) Description 05/26/2023 Refill [facility] [address] [place], [place] [phone] Name, MD Cameron [address] [place] [address] Social History Tobacco Use Types Packs/Day Years [...] Description 09/16/2024 11:15 AM EDT Office Visit [facility] [address] [place] [phone] Name, MD Cameron [address] [place] [phone] documented as of this encounter Visit Diagnoses Not on filedocumented in this encounter Additional Health Concerns Assessment Noted Time PHQ-9 Depression Total Score: 0 04/02/20 22 11:16 AM EST documented as of this encounter Care Teams Manager Pool Relationship Specialty Start Date End Date Name, MD Cameron [address] [place] [phone] PCP - General Family Medicine 06/21/15 documented as of this encounter
--- OUTSIDE RECORDS SUMMARY | 2024-07-09 08:51 | XMS_ITS | Encounter Summary ---
Author Organization [employer] Address 75 [facility] 7t [place] [address] Care Team Providers Care Glass Novelty Maker Name Role Phone Name, Cameron DURAN Primary Care Provider [phone] Reason for Visit * Reason Comments Med Refill Encounter Details Date Type Department Care Team (Late st Contact Info) Description 05/05/2024 Refill [facility] [address] [place], [place] [phone] Name, MD Cameron [address] [place], [place] [phone] Tinea corporis Social History Tobacco Use Types Packs/Day Years Used Date Smoking Tobacco: Never Smokeless Tobacco: Never Alcohol Use Standard Drinks/Week Comments Never 0 (1 standard drink = 0.6 oz pur e alcohol) Depression Answer Date Recorded Patient Health Questionnaire-9 Score 0 04/02/2022 Housing Stability Answer Date Recorded What is your housing situation today? I have shaheedkrystian avelar 11/04/[address] you [...] Description 09/16/2024 11:15 AM EDT Office Visit [facility] [address] [place] [address] Name, MD Cameron [address] [place] [address] documented as of this encounter Visit Diagnoses Diagnosis Tinea corporis Dermatophytosis of the body documented in this encounter Additional Health Concerns Assessment Noted Time PHQ-9 Depression Total Score: 0 04/02/20 22 11:16 AM EST documented as of this encounter Care Teams Glass Novelty Maker Relationship Specialty Start Date End Date NameCameron MD [address] [place] [address] PCP - General Family Medicine 06/21/15 documented as of this encounter
--- OUTSIDE RECORDS SUMMARY | 2024-07-09 08:51 | XMS_ITS | Encounter Summary ---
Author Organization [employer] Address 75 [facility] 7t [place] [address] Care Team Providers Care Mold Unloader Name Role Phone Name, Cameron DURAN Primary Care Provider [phone] Encounter Details Date Type Department Care Team ([facility] st Contact Info) Description 07/02/2024 Population Health Risk Score [facility] () Department [address] [place] [phone] Provider, Population Health Generic Social History Tobacco Use Types Packs/Day Years [...] Description 09/16/2024 11:15 AM EDT Office Visit [facility] [address] [place] [address] Name, MD Cameron [address] [place] [address] documented as of this encounter Visit Diagnoses Not on filedocumented in this encounter Additional Health Concerns Assessment Noted Time PHQ-9 Depression Total Score: 0 04/02/20 22 11:16 AM EST documented as of this encounter Care Teams Mold Unloader Relationship Specialty Start Date End Date NameCameron MD [address] [place] [address] PCP - General Family Medicine 06/21/15 documented as of this encounter
--- OUTSIDE RECORDS SUMMARY | 2024-07-09 08:51 | XMS_ITS | Encounter Summary ---
Author Organization [employer] Address [address] [place] [address] 7t [place] [address] Care Team Providers Care Manager Hiv Name Role Phone NameCameron MD Primary Care Provider [phone] Reason for Referral * Imaging (Routine) - Authorized Specialty Diagnoses / Procedures Referred By Contac t Referred To Contact Radiology Diagnoses Fatty liver Procedures US Abdomen Complete Cameron Bell MD [address] [place] [address] Phone: tel: fax: [address] Phone: tel: fax: Referral ID Status Reason Start Date Expiration Date V isits Requested Visits Authorized [id number] Authorized 06/16/2024 06/16/2025 1 1 Reason for Visit * Reason Comments Follow-up Encounter Details Date Type Department Care Team (Late st Contact Info) Description 06/16/2024 10:45 AM EST Office Visit [facility] [address] [place], [place] [phone] Cameron Bell MD [address] [place] [address] Fatty liver (Primary Dx) Social History Tobacco Use Types Packs/Day Years [...] AM EDT documented as of this encounter Last Filed Vital Signs Vital Sign [place] [...] Mass Index 23.73 06/16/2024 10:47 AM EST documented in this encounter Progress Notes * Cameron Bell MD - 06/16/2024 10:45 AM EST Subjective Patient ID: Abimael Mojica is a 43 y.o. male who presents for Follow-up. Patient comes for a follow-up visit. The patient has severe developmental delay and is nonverbal. He is accompanied by 2 workers from his fci from [facility]. The patient has been doing well. They donot have any new complaints. We discussed the results of his most recent blood work. He has fatty liver likely secondary to chronic use of antipsychotics. He is now up-to-date with hepatitis A and B vaccinations. There is no evidence of cirrhosis. Review of Systems Constitutional: Negative for chills, fatigue and fever. HENT: Negative for sore throat. Respiratory: Negative for cough, chest tightness and shortness of breath. Cardiovascular: Negative for chest pain, palpitations and leg swelling. Gastrointestinal: Negative for abdominal pain and blood in stool. Visit Vitals BP 104/65 (BP Location: Left arm, Patient Position: Sitting, BP Cuff Size: Adult) Pulse 72 Temp 97.3 ??F (36.3 ??C) (Temporal) Resp 22 Ht 5' 6 (1.676 m) Wt 147 lb (66.7 kg) SpO2 98% BMI 23.73 kg/m?? Smoking Status Never BSA 1.76 m?? Objective Physical Exam Constitutional: Appearance: Normal appearance. Cardiovascular: Rate and Rhythm: Normal rate and regular rhythm. Heart sounds: No murmur heard. Pulmonary: Effort: Pulmonary effort is normal. No respiratory distress. Breath sounds: No wheezing, rhonchi or rales. Abdominal: Palpations: Abdomen is soft. Tenderness: There is no abdominal tenderness. Musculoskeletal: Right lower leg: No edema. Left lower leg: No edema. Neurological: Mental Status: He is alert. Assessment/Plan Diagnoses and all orders for this visit: Fatty liver Comments: I recommended to check blood work listed below. Repeat ultrasound of the liver. We discussed importance of avoiding sweets and soda and regular physical activity. Repeat ultrasound of the liver. Orders: - CBC auto differential; Future - Comprehensive Metabolic Panel; Future - US Abdomen Complete; Future documented in this encounter Plan of Treatment Upcoming Encounters Date Type Department Care Team (Late st Contact Info) Description 09/16/2024 11:15 AM EDT Office Visit [facility] [address] [place] [address] Name, MD Cameron [address] [place] [address] Scheduled Orders Name Type Priority Associated Diagnoses Orde r Schedule US Abdomen Complete Imaging Routine Fatty liver Expected: 06/16/2024, Expires: 06/16/2025 documented as of this encounter Procedures Procedure Name Priority Date/Time Associated Diagnosis Comments CBC WITH AUTO DIFFERENTIAL Routine 06/28/2024 9:06 AM EDT Fatty liver COMPREHENSIVE METABOLIC PANEL Routine 06/28/2024 9:06 AM EDT Fatty liver documented in this encounter Results * (ABNORMAL) Comprehensive Metabolic Panel (06/28/2024 9:06 AM EDT) Sodium 141 135 - 145 mmol/L [facility] Potassium 4.1 3.3 - 5.1 mmol/L [facility] Chloride 109(H) 96 - 108 mmol/L [facility] Carbon Dioxide 23 22 - 29 mmol/L [facility] Anion Gap 13 12 - 20 [facility] Urea Nitrogen (BUN) 12 9 - 16 mg/dL [facility] Creatinine, Serum 0.76 0.5 - 1.4 mg/dL [facility] Estimated Glomerular Filt Rate >60 [facility] Comment:Chronic Kidney Disea se: Estimated GFR < 60 mL/min/1.45n8Mpifwn Kidney Disease: Estimated GFR < 15 mL/min/1.73m2 Glucose 98 60 - 115 mg/dL [facility] Calcium 9.6 8.4 - 10.2 mg/dL [facility] Bilirubin, Total 1.5(H) 0.0 - 1.0 mg/dL [facility] Aspartate Amino Transferase 66(H) 5 - 37 U/L [facility] Alanine Aminotransferase 136(H) 0 - 40 U/L [facility] Total Protein 7.8 6.5 - 8.0 g/dL [facility] Albumin Level 4.6 3.5 - 5.0 g/dL [facility] Alkaline Phosphatase 68 39 - 117 U/L [facility] Blood Venous blood specimen / Unknown 06/28/2024 9:06 AM EDT 06/28/2024 11:24 AM EDT us Cameron Name MD LAB BLOOD ORDERABLES Final Resul t [facility] [address] [place] [phone] * (ABNORMAL) CBC auto differential (06/28/2024 9:06 AM EDT) White Blood Count 9.7 4.8 - 10.8 X10*3/uL [facility] Red Blood Count 5.46 4.60 - 5.80 X10*6/uL [facility] Hemoglobin 16.4 14.0 - 18.0 g/dl [facility] Hematocrit 46.8 42.0 - 52.0 % [facility] Mean Corpuscular Volume 85.7 80.0 - 98.0 fL [facility] Mean Corpuscular Hemoglobin 30.0 27.0 - 33.0 pg [facility] Mean Corpuscular HGB Conc 35.0 31.0 - 36.0 g/dl [facility] Red Cell Distribution Width 13.2 11.0 - 16.0 % [facility] Platelet Count 220 160 - 400 X10*3/uL [facility] Mean Platelet Volume 10.1 9.4 - 12.4 fL [facility] Neutrophils Percent Auto 66.3 45 - 73 % [facility] Imm Gran Pct Auto 0.4 0.0 - 0.4 % [facility] Lymphocytes Percent Auto 23.8 20 - 40 % [facility] Monocytes Percent Auto 8.1 2 - 11 % [facility] Eosinophils Percent Auto 0.8 0 - 4 % [facility] Basophils Percent Auto 0.6 0 - 2 % [facility] NRBC Pct Auto 0.0 0.0 - 0.2 /100WBC [facility] Neutrophils Absolute Auto 6.4 2.0 - 8.3 x10*3/uL [facility] Imm Gran Abs Auto 0.04(H) 0.00 - 0.03 X10*3/uL [facility] Lymphocytes Absolute Auto 2.3 1.2 - 4.9 X10*3/uL [facility] Monocytes Absolute Auto 0.8 0.1 - 1.2 X10*3/uL [facility] Eosinophils Absolute Auto 0.1 0.0 - 0.4 X10*3/uL [facility] Basophils Absolute Auto 0.1 0.0 - 0.2 X10*3/uL [facility] NRBC Abs Auto 0.000 0.0 - 0.012 X10*3/uL [facility] Blood Venous blood specimen / Unknown 06/28/2024 9:06 AM EDT 06/28/2024 11:24 AM EDT us Cameron Bell MD LAB BLOOD ORDERABLES Final Resul t [facility] [address] [place] [phone] documented in this encounter Visit Diagnoses Diagnosis Fatty liver- Primary Other chronic nonalcoholic liver disease documented in this encounter Additional Health Concerns Assessment Noted Time PHQ-9 Depression Total Score: 0 04/02/20 22 11:16 AM EST documented as of this encounter Care Teams Manager Hiv Relationship Specialty Start Date End Date Name, MD Cameron [address] [place] [address] PCP - General Family Medicine 06/21/15 documented as of this encounter
--- OUTSIDE RECORDS SUMMARY | 2024-07-09 08:51 | XMS_ITS | Encounter Summary ---
Author Organization [employer] Address 75 [facility] 7t [place] [address] Care Team Providers Care Media Center Specialist Name Role Phone Name, Cameron DURAN Primary Care Provider [phone] Reason for Visit * Reason Onset Date Comments Referral 01/06/2024 Encounter Details Date Type Department Care Team ([facility] st Contact Info) Description 01/06/2024 Telephone [facility] [address] [place], [place] [phone] Name, MD Cameron [address] [place], [place] [phone] Referral Social History Tobacco Use Types Packs/Day Years [...] encounter Miscellaneous Notes * Telephone Encounter - Donte Nelson - 01/06/2024 2:06 PM EDT Tc from Marina, nurse with department of developmental health requesting referral for podiatry, pt needs his toenails cut and staff at [facility] are unable to cut it and so they're requesting forpt to be seen with podiatry. If any questions you can contact Marina at [phone]. documented in this encounter Plan of Treatment Upcoming Encounters Date Type Department Care Team (Late st Contact Info) Description 09/16/2024 11:15 AM EDT Office Visit [facility] [address] [place] [address] Name, MD Cameron [address] [place] [address] documented as of this encounter Visit Diagnoses Not on filedocumented in this encounter Additional Health Concerns Assessment Noted Time PHQ-9 Depression Total Score: 0 04/02/20 22 11:16 AM EST documented as of this encounter Care Teams Media Center Specialist Relationship Specialty Start Date End Date Name, MD Cameron [address] [place] [address] PCP - General Family Medicine 06/21/15 documented as of this encounter
--- OUTSIDE RECORDS SUMMARY | 2024-07-09 08:51 | XMS_ITS | Encounter Summary ---
Author Organization [email or web address] Address 75 [facility] 7t [place] [address] Care Team Providers Care Functional Mental Disability Teacher Name Role Phone Name, Cameron DURAN Primary Care Provider [phone] Reason for Visit * Reason Comments Med Refill Encounter Details Date Type Department Care Team ([facility] st Contact Info) Description 02/25/2024 Refill [facility] [address] [place] [address] [phone] Name, MD Cameron [address] [place], [place] [phone] Social History Tobacco Use Types Packs/Day Years [...] Description 09/16/2024 11:15 AM EDT Office Visit [facility] [address] [place] [address] NameCameron MD [address] [place] [address] documented as of this encounter Visit Diagnoses Not on filedocumented in this encounter Additional Health Concerns Assessment Noted Time PHQ-9 Depression Total Score: 0 04/02/20 22 11:16 AM EST documented as of this encounter Care Teams Functional Mental Disability Teacher Relationship Specialty Start Date End Date NameCameron MD [address] [place] [address] PCP - General Family Medicine 06/21/15 documented as of this encounter
--- OUTSIDE RECORDS SUMMARY | 2024-07-09 08:51 | XMS_ITS | Encounter Summary ---
Author Organization [employer] Address [address] [place] [address] 7t [place] [address] Care Team Providers Care Home Furnishings Sales Representative Name Role Phone Name, Cameron DURAN Primary Care Provider [phone] Reason for Visit * Reason Comments Med Refill Encounter Details Date Type Department Care Team (Late st Contact Info) Description 06/24/2024 Refill [facility] [address] [place], [place] [phone] Name, MD Cameron [address] [place] [address] Social History Tobacco Use Types Packs/Day Years [...] 11:15 AM EDT Office Visit [facility] [address] [place] [address] Name, MD Cameron [address] [place] [address] documented as of this encounter Visit Diagnoses Not on filedocumented in this encounter Additional Health Concerns Assessment Noted Time PHQ-9 Depression Total Score: 0 04/02/20 22 11:16 AM EST documented as of this encounter Care Teams Home Furnishings Sales Representative Relationship Specialty Start Date End Date NameCameron MD [address] [place] [address] PCP - General Family Medicine 06/21/15 documented as of this encounter
--- OUTSIDE RECORDS SUMMARY | 2024-07-09 08:51 | XMS_ITS | Encounter Summary ---
Author Organization [employer] Address [address] [place] [address] 7t [place] [address] Care Team Providers Care Tool Dispatcher Name Role Phone Name, Cameron DURAN Primary Care Provider [phone] Reason for Visit * Reason Onset Date Comments Medication Question 03/12/2023 Encounter Details Date Type Department Care Team ([facility] Contact Info) Description 03/12/2023 Telephone [facility] [address] [place], [place] [phone] Name, MD Cameron [address] [place], [place] [phone] Medication Question Social History Tobacco Use Types [...] encounter Miscellaneous Notes * Telephone Encounter - Leona Jackson Rosy - 03/12/2023 3:13 PM EST Tc from Meghan Lawler with [facility] requesting a call from provider or a nurse to speak about 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 Please contact pt @ [phone] documented in this encounter Plan of Treatment Upcoming Encounters Date Type Department Care Team (Late st Contact Info) Description 09/16/2024 11:15 AM EDT Office Visit [facility] [address] [place] [address] Name, MD Cameron [address] [place] [address] documented as of this encounter Visit Diagnoses Not on filedocumented in this encounter Additional Health Concerns Assessment Noted Time PHQ-9 Depression Total Score: 0 04/02/20 22 11:16 AM EST documented as of this encounter Care Teams Tool Dispatcher Relationship Specialty Start Date End Date Name, MD Cameron [address] [place] [address] PCP - General Family Medicine 06/21/15 documented as of this encounter
--- OUTSIDE RECORDS SUMMARY | 2024-07-09 08:51 | XMS_ITS | Encounter Summary ---
Author Organization [employer] Address 75 [facility] 7t [place] [address] Care Team Providers Care Refuse Laborer Name Role Phone Name, Cameron DURAN Primary Care Provider [phone] Encounter Details Date Type Department Care Team (Latest Contact Info) Description 06/16/2024 Travel Social History Tobacco Use Types Packs/Day Years [...] Description 09/16/2024 11:15 AM EDT Office Visit [facility] [address] [place] [address] Name, MD Cameron [address] [place] [address] documented as of this encounter Visit Diagnoses Not on filedocumented in this encounter Additional Health Concerns Assessment Noted Time PHQ-9 Depression Total Score: 0 04/02/20 22 11:16 AM EST documented as of this encounter Care Teams Refuse Laborer Relationship Specialty Start Date End Date NameCameron MD [address] [place] [address] PCP - General Family Medicine 06/21/15 documented as of this encounter
== END 2024-07-09 08:35 | disposition home or self-care (01) ==
LOC: HO.HMGCX 08:34
PROVIDERS: PCP Internal Medicine Geriatric Medicine; Visit Provider Internal Medicine Geriatric Medicine
DX: K76.0 Fatty (change of) liver, not elsewhere classified (principal)
CPT/HCPCS: 76700

== ENCOUNTER → 2024-07-09 08:36 | Outpatient (BNV) | payer MEDICARE, MEDICAID, SELFPAY | PROVIDERS: PCP Internal Medicine Geriatric Medicine; Visit Provider Specialist | DX: K76.0 Fatty (change of) liver, not elsewhere classified (principal) | CPT/HCPCS: 76700 ==

== ENCOUNTER 2024-11-23 14:12 | Outpatient (REF) | payer MEDICARE, MEDICAID, SELFPAY ==
--- OUTSIDE RECORDS SUMMARY | 2024-11-23 14:54 | XMS_ITS | Encounter Summary ---
Author Organization [employer] Address [address] [place] [address] 7 [place] [address] Care Team Providers Care Lawn Service Supervisor Name Role Phone Name, Cameron DURAN Primary Care Provider [phone] Reason for Visit * Reason Onset Date Comments ER Follow-up 11/18/2022 Medication Question 11/18/2022 Encounter Details Date Type Department Care Team ([facility] st Contact Info) Description 11/18/2022 Telephone [facility] [address] [place], [place] [phone] Name, MD Cameron [address] [place] [address] ER Follow-up; Medication Question Social History Tobacco [...] PM EDT T/C to x 1 pm [phone] and [phone] for status check and to offer ED fllow up apt. No answer. LVM to call back on [phone]. * Telephone Encounter - Britany Anuj - 11/18/2022 10:50 AM EDT Patient calling to report ED visit on 11/17/22 at [facility]. Seen for irritated eye. Patient advised will forward to team nurse for follow up. Patients personal care attendant is also requesting a call back, in regards to medication questions. documented in this encounter Plan of Treatment Not on file documented as of this encounter Visit Diagnoses Not on filedocumented in this encounter Additional Health Concerns Assessment Noted Time PHQ-9 Depression Total Score: 0 04/02/20 22 11:16 AM EST documented as of this encounter Care Teams Lawn Service Supervisor Relationship Specialty Start Date End Date Name, MD Cameron [address] [place] [address] PCP - General Family Medicine 06/21/15 documented as of this encounter
[2024-11-23 16:08] LABS: MANUAL DIFF FLAG NO
[2024-11-23 16:17] LABS: Hematocrit 44.8 % (42.0-52.0); Hemoglobin 15.9 g/dl (14.0-18.0); Imm Gran Abs Auto 0.05 X10*3/uL (0.00-0.03); Imm Gran Pct Auto 0.5 % (0.0-0.4); Lymphocytes Absolute Auto 2.4 X10*3/uL (1.2-4.9); Mean Corpuscular HGB Conc 35.5 g/dl (31.0-36.0); Mean Corpuscular Hemoglobin 29.8 pg (27.0-33.0); Mean Corpuscular Volume 84.1 fL (80.0-98.0); NRBC Abs Auto 0.000 X10*3/uL (0.0-0.012); NRBC Pct Auto 0.0 /100WBC (0.0-0.2); Platelet Count 234 X10*3/uL (160-400); Red Blood Count 5.33 X10*6/uL (4.60-5.80); White Blood Count 10.0 X10*3/uL (4.8-10.8)
[2024-11-23 16:24] LABS: INTERNATIONAL NORM RATIO 1.0 (0.9-1.1); Prothrombin Time 11.5 SEC (10.9-12.4)
[2024-11-23 16:31] LABS: Alanine Aminotransferase 153 U/L (0-40); Albumin Level 5.1 g/dL (3.5-5.0); Alkaline Phosphatase 82 U/L (39-117); Anion Gap 15 (12-20); Aspartate Amino Transferase 71 U/L (5-37); Blood Urea Nitrogen 20 mg/dL (9-16); Calcium 10.0 mg/dL (8.4-10.2); Carbon Dioxide 23 mmol/L (22-29); Chloride 108 mmol/L (96-108); Estimated Glomerular Filt Rate > 60; Potassium 3.7 mmol/L (3.3-5.1); Sodium 142 mmol/L (135-145); Total Protein 8.0 g/dL (6.5-8.0)
[2024-11-29 03:14] LABS: FIB-ALT 112 U/L (9-46); FIB-Alpha-2-Macroglobulin 136 mg/dL (106-279); FIB-Apolipoprotein A1 129 mg/dL (94-176); FIB-GGT 42 U/L (3-95); FIB-Haptoglobin 124 mg/dL (43-212); FIB-Total Bilirubin 1.1 mg/dL (0.2-1.2); Liver Fibrosis Score 0.23; Liver Fibrosis Stage F0-F1; Nec Inflam Act Grade A2; Nec Inflam Act Score 0.59
== END 2024-11-23 14:13 | disposition home or self-care (01) ==
LOC: HO.HHCL 14:12
PROVIDERS: PCP Internal Medicine Geriatric Medicine; Visit Provider Internal Medicine Geriatric Medicine
DX: K75.81 Nonalcoholic steatohepatitis (NASH) (principal)
CPT/HCPCS: 36415; 80048; 80076; 81596; 85025; 85610

== ENCOUNTER 2025-04-05 08:45 | Outpatient (REF) | payer MEDICARE, MEDICAID, SELFPAY ==
--- OUTSIDE RECORDS SUMMARY | 2025-04-04 14:00 | XMS_ITS | Encounter Summary ---
Author Organization [employer] Address [address] [place] [address] 7t [place] [address] Care Team Providers Care Methodologist Name Role Phone Name, Cameron DURAN Primary Care Provider [phone] Reason for Visit * Reason Comments foul smelling urine Encounter Details Date Type Department Care Team ([facility] st Contact Info) Description 04/04/2025 2:00 PM EST Office Visit [facility] [address] [place], [place] [phone] Name, MD Cameron [address] [place], [place] [phone] Foul smelling urine (Primary Dx); Urinary incontinence, unspecified type; Slightly cloudy urine Social History Tobacco Use Types Packs/Day Years Used Date Smoking Tobacco: Never Passive Smoke Exposure: Never Smokeless Tobacco: Never Tobacco Cessation:Counseling Given: Not Answered Alcohol Use Standard Drinks/Week Comments Never 0 (1 standard drink = 0.6 oz pur e alcohol) Depression Answer Date Recorded Patient Health Questionnaire-9 Score 2 09/16/2024 Patient Health Questionnaire-9 Score 2 09/16/2024 Last PHQ-9: Questionnaire Data Not on file 0 09/16/2024 Housing Stability Answer Date Recorded What is [...] Answer Date Recorded Patient Health Questionnaire-2 Score 1 09/16/2024 Internet Access Answer Date Recorded Internet Access [...] Sign Reading Time Taken Comments Blood Pressure 110/82 04/04/2025 2:26 PM EST Pulse 97 04/04/2025 2:26 PM EST Temperature 36.2 C (97.1 F) 04/04/2025 2:26 PM EST Respiratory Rate 21 04/04/2025 2:26 PM EST Oxygen Saturation 98% 04/04/2025 2:26 PM EST Inhaled Oxygen Concentration - - Weight 65.5 kg (144 lb 6.4 oz) 04/04/2025 2:26 P M EST Height 167.6 cm (5' 6 ) 04/04/2025 2:26 PM EST Body Mass Index 23.31 04/04/2025 2:26 PM EST documented in this encounter Progress Notes * Cameron Bell MD - 04/04/2025 2:00 PM EST Subjective Patient ID: Abimael Mojica is a 44 y.o. male who presents for foul smelling urine. Patient comes for a sick visit. The patient has intellectual disability, he is nonverbal, he lives in a long-term. He comes accompanied by 2 worker from his long-term. They are concerned because the patient started having urinary incontinence, staff in his long-term noticed cloudy urine, today the patient had foul-smelling urine. No fevers or chills, he has been eating okay and besides the episode of urinary incontinence the patient has not changed from his usual baseline. They deny he is having any respiratory symptoms. Review of Systems Reason unable to perform ROS: Patient is nonverbal. Constitutional: Negative for fever. Respiratory: Negative for cough. Genitourinary: See HPI Objective Vitals: 04/04/25 1426 BP: 110/82 BP Location: Left arm Patient Position: Sitting BP Cuff Size: Adult Pulse: 97 Resp: 21 Temp: 97.1 ??F (36.2 ??C) TempSrc: Temporal SpO2: 98% Weight: 144 lb 6.4 oz (65.5 kg) Height: 5' 6 (1.676 m) Physical Exam Constitutional: General: He is not in acute distress. Appearance: He is not ill-appearing. Cardiovascular: Rate and Rhythm: Normal rate and regular rhythm. Pulmonary: Effort: Pulmonary effort is normal. No respiratory distress. Abdominal: Tenderness: There is no abdominal tenderness. Assessment/Plan Diagnoses and all orders for this visit: Foul smelling urine Comments: Patient history is consistent with UTI. Unfortunately he was unable to provide us with a urine sample. I will provide the patient's healthcare workers with supplies to collect urine sample at home. I will treat empirically with a course of Bactrim Healthcare worker to recommend to give the patient plenty of water and to let us know if he is not much better after antibiotic course. Orders: - Urinalysis, Complete, with Reflex to Culture; Future Urinary incontinence, unspecified type - Urinalysis, Complete, with Reflex to Culture; Future Slightly cloudy urine - Urinalysis, Complete, with Reflex to Culture; Future Other orders - sulfamethoxazole-trimethoprim (Bactrim DS) 800-160 MG tablet; Take 1 tablet by mouth 2 times daily for 3 days. documented in this encounter Plan of Treatment Scheduled Orders Name Type Priority Associated Diagnoses Orde r Schedule Urinalysis, Complete, with Reflex to Culture Lab Routine Foul smelling urine Urinary incontinence, unspecified type Slightly cloudy urine Expected: 04/04/2025 (Approximate), Expires: 04/04/2026 documented as of this encounter Visit Diagnoses Diagnosis Foul smelling urine- Primary Urinary incontinence, unspecified type Slightly cloudy urine documented in this encounter Additional Health Concerns Assessment Noted Time PHQ-9 Depression Total Score: 2 09/17/19 25 3:41 PM EDT documented as of this encounter Care Teams Methodologist Relationship Specialty Start Date End Date Name, MD Cameron [address] [place] [address] PCP - General Family Medicine 06/21/15 documented as of this encounter
--- OUTSIDE RECORDS SUMMARY | 2025-04-05 09:26 | XMS_ITS | Encounter Summary ---
Author Organization [employer] Address [address] [place] [address] 7t [place] [address] Care Team Providers Care Manager Image Name Role Phone Name, Cameron DURAN Primary Care Provider [phone] Reason for Visit * Reason Comments Med Refill Encounter Details Date Type Department Care Team (Late st Contact Info) Description 05/05/2024 Refill [facility] MEDICINE [address] [place], [place] [phone] Name, MD Cameron [address] [place], [place] [phone] Tinea corporis Social History Tobacco Use Types [...] as of this encounter Plan of Treatment Not on file documented as of this encounter Visit Diagnoses Diagnosis Tinea corporis Dermatophytosis of the body documented in this encounter Additional Health Concerns Assessment Noted Time PHQ-9 Depression Total Score: 0 04/02/20 22 11:16 AM EST documented as of this encounter Care Teams Manager Image Relationship Specialty Start Date End Date Name, MD Cameron [address] [place] [address] PCP - General Family Medicine 06/21/15 documented as of this encounter
--- OUTSIDE RECORDS SUMMARY | 2025-04-05 09:26 | XMS_ITS | Encounter Summary ---
Author Organization [employer] Address [address] [facility] 7t [place] [address] Care Team Providers Care Blow Down Operator Name Role Phone Name, Cameron DRUAN Primary Care Provider [phone] Encounter Details Date Type Department Care Team ([facility] st Contact Info) Description 06/20/2023 Telephone [facility] MEDICINE [address] [place], [place] [phone] Name, MD Cameron [address] [place] [address] Social History Tobacco Use Types Packs/Day Years [...] Miscellaneous Notes * Telephone Encounter - Mario cMhugh RN - 06/20/2023 4:42 PM EST Meds. Send to pharmacy. * Telephone Encounter - Glendy Buchanan - 06/20/2023 2:08 PM EST Tc from Nelson with [facility] requesting for valACYclovir (Valtrex) 1 g tablet to state PRN. Please clarify Please contact nelson at [phone] documented in this encounter Plan of Treatment Not on file documented as of this encounter Visit Diagnoses Not on filedocumented in this encounter Additional Health Concerns Assessment Noted Time PHQ-9 Depression Total Score: 0 04/02/20 22 11:16 AM EST documented as of this encounter Care Teams Blow Down Operator Relationship Specialty Start Date End Date Name, MD Cmaeron [address] [place] [address] PCP - General Family Medicine 06/21/15 documented as of this encounter
--- OUTSIDE RECORDS SUMMARY | 2025-04-05 09:26 | XMS_ITS | Encounter Summary ---
Author Organization [employer] Address [address] [facility] 7t [place] [address] Care Team Providers Care Weight Loss Physician Name Role Phone Name, Cameron DURAN Primary Care Provider [phone] Reason for Visit * Reason Onset Date Comments Nurse Triage 04/29/2023 Encounter Details Date Type Department Care Team ([facility] st Contact Info) Description 04/29/2023 Telephone [facility] MEDICINE [address] [place], [place] [phone] Name, MD Cameron [address] [place], [place] [phone] Nurse Triage Social History Tobacco Use Types [...] - 04/30/2023 3:57 PM EST T/C to [phone] for below message, pt. Schedule for Tele. Visit at 5.40 pm ( Discussed with Speech Pathology Supervisor and Walk in center Nurse ) to go over possible drug interaction with Plaxovid and further evaluation. Marina verbally agreed and understood. Pt. Was diagnosed for COVID on 04/29/2023. * Telephone Encounter - Mario Mchugh RN - 04/30/2023 2:52 PM EST T/C to [phone] for status check and further investigation for symptom, no answer. POLLY mercedes asking for Plaxovid. Pt. Was diagnosed for COVID on 04/29/2023 , Please review and advise if needed. * Telephone Encounter - Marquis Goode - 04/30/2023 12:27 PM EST Tc from POLLY hameed from correction requesting a script for Paxlovid pt tested positive 04/29/23 andwas advised to contact phone number provided for medication however states that is a program and was directed to have PCP sign off on script. Please see previous notes. Please contact at [phone] or please call correction [phone] ask for a MAT certified staffmember * Telephone Encounter - Rocio Pettit RN - 04/29/2023 2:29 PM EST Triage call some one answered the phone and handed it to Nurse Marina. Pt is in a correction. Pttested + today 04/29/23 for Covid. Pt only symptom is tiredness/fatigue. Temp is 97.6 this morning. Home care advice given , nurse Michelle is already aware of advice. There is request for paxlovid. 3rd democrat televisit number [phone] is given and advised to have list [...] documented as of this encounter Care Teams Weight Loss Physician Relationship Specialty Start Date End Date Name, MD Cameron [address] [place] [address] PCP - General Family Medicine 06/21/15 documented as of this encounter
--- OUTSIDE RECORDS SUMMARY | 2025-04-05 09:26 | XMS_ITS | Encounter Summary ---
Author Organization [employer] Address [address] [place] [address] 7t [place] [address] Care Team Providers Care Chief Underwriter Name Role Phone Name, Cameron DURAN Primary Care Provider [phone] Reason for Visit * Reason Onset Date Comments Durable Medical Equipment 04/30/2022 Encounter Details Date Type Department Care Team (Late st Contact Info) Description 04/30/2022 Telephone [facility] MEDICINE [address] [place], [place] [phone] Name, MD Cameron [address] [place] [address] Durable Medical Equipment Social History Tobacco Use [...] once he returns to clinic. [facility]C to prison. Advised pcp not in clinic today. prison requests order to be faxed to [phone]. Advised will fax when pcp signs. * [...] documented as of this encounter Care Teams Chief Underwriter Relationship Specialty Start Date End Date Name, MD Cameron [address] [place] [address] PCP - General Family Medicine 06/21/15 documented as of this encounter
--- OUTSIDE RECORDS SUMMARY | 2025-04-05 09:26 | XMS_ITS | Encounter Summary ---
Author Organization [employer] Address [address] [place] [address] 7t [place] [address] Care Team Providers Care Container Coordinator Name Role Phone Name, Cameron DURAN Primary Care Provider [phone] Reason for Visit * Reason Comments Med Refill Encounter Details Date Type Department Care Team (Late st Contact Info) Description 07/30/2024 Refill [facility] MEDICINE [address] [place], [place] [phone] Name, MD Cameron [address] [place], [place] [phone] Tinea corporis Social History Tobacco Use Types [...] documented as of this encounter Care Teams Container Coordinator Relationship Specialty Start Date End Date Name, MD Cameron [address] [place] [address] PCP - General Family Medicine 06/21/15 documented as of this encounter
--- OUTSIDE RECORDS SUMMARY | 2025-04-05 09:26 | XMS_ITS | Encounter Summary ---
Author Organization [employer] Address [address] [place] [address] 7 [place] [address] Care Team Providers Care Finance Lead Name Role Phone Name, Cameron DURAN Primary Care Provider [phone] Reason for Visit * Reason Onset Date Comments ER Follow-up 11/18/2022 Medication Question 11/18/2022 Encounter Details Date Type Department Care Team ([facility] st Contact Info) Description 11/18/2022 Telephone [facility] MEDICINE [address] [place], [place] [phone] Name, MD Cameron [address] [place] [address] ER Follow-up; Medication Question Social History Tobacco [...] PM EDT T/C to x 1 pm [phone] and [phone] for status check and to offer ED fllow up apt. No answer. LVM to call back on [phone]. * Telephone Encounter - Britany Anuj - 11/18/2022 10:50 AM EDT Patient calling to report ED visit on 11/17/22 at [facility]. Seen for irritated eye. Patient advised will forward to team nurse for follow up. Patients manager urgent care is also requesting a call back, in regards to medication questions. documented in this encounter Plan of Treatment Not on file documented as of this encounter Visit Diagnoses Not on filedocumented in this encounter Additional Health Concerns Assessment Noted Time PHQ-9 Depression Total Score: 0 04/02/20 22 11:16 AM EST documented as of this encounter Care Teams Finance Lead Relationship Specialty Start Date End Date Name, MD Cameron [address] [place] [address] PCP - General Family Medicine 06/21/15 documented as of this encounter
--- OUTSIDE RECORDS SUMMARY | 2025-04-05 09:26 | XMS_ITS | Encounter Summary ---
Author Organization [employer] Address [address] [place] [address] 7t [place] [address] Care Team Providers Care Bench Assembler Battery Name Role Phone Name, Cameron DURAN Primary Care Provider [phone] Reason for Visit * Reason Onset Date Comments Durable Medical Equipment 06/19/2022 Encounter Details Date Type Department Care Team (Late st Contact Info) Description 06/19/2022 Telephone [facility] MEDICINE [address] [place], [place] [phone] Name, MD Cameron [address] [place] [address] Durable Medical Equipment Social History Tobacco Use [...] requesting for script to be send to [facility] documented in this encounter Plan of Treatment Not on file documented as of this encounter Visit Diagnoses Not on filedocumented in this encounter Additional Health Concerns Assessment Noted Time PHQ-9 Depression Total Score: 0 04/02/20 22 11:16 AM EST documented as of this encounter Care Teams Bench Assembler Battery Relationship Specialty Start Date End Date Name, MD Cameron [address] [place] [address] PCP - General Family Medicine 06/21/15 documented as of this encounter
--- OUTSIDE RECORDS SUMMARY | 2025-04-05 09:26 | XMS_ITS | Encounter Summary ---
Author Organization [employer] Address [address] [facility] 7t [place] [address] Care Team Providers Care Supervisory Historian Name Role Phone Name, Cameron DURAN Primary Care Provider [phone] Reason for Visit * Reason Onset Date Comments Medication Question 03/12/2023 Encounter Details Date Type Department Care Team ([facility] st Contact Info) Description 03/12/2023 Telephone [facility] MEDICINE [address] [place], [place] [phone] Name, MD Cameron [address] [place] [address] Medication Question Social History Tobacco Use Types [...] encounter Miscellaneous Notes * Telephone Encounter - Leticiasergio Manuel Gallegos - 03/12/2023 3:13 PM EST Tc from Meghan Lawler with [facility] requesting a call from provider or a nurse to speak about pt switching monotype mechanic if on the mean time provider could prescribed medication until transition of care is done . Please contact pt @ [phone] documented in this encounter Plan of Treatment Not on file documented as of this encounter Visit Diagnoses Not on filedocumented in this encounter Additional Health Concerns Assessment Noted Time PHQ-9 Depression Total Score: 0 04/02/20 11:16 AM EST documented as of this encounter Care Teams Supervisory Historian Relationship Specialty Start Date End Date Name, MD Cameron [address] [place] [address] PCP - General Family Medicine 06/21/15 documented as of this encounter
--- OUTSIDE RECORDS SUMMARY | 2025-04-05 09:26 | XMS_ITS | Encounter Summary ---
Author Organization [employer] Address [address] [facility] 7t [place] [address] Care Team Providers Care Communications Department Chair Name Role Phone Name, Cameron DURAN Primary Care Provider [phone] Reason for Visit * Reason Comments Med Refill Encounter Details Date Type Department Care Team (Late st Contact Info) Description 10/01/2023 Refill [facility] MEDICINE [address] [place], [place] [phone] Name, MD Cameron [address] [place], [place] [phone] Social History Tobacco Use Types Packs/Day Years [...] t he electric, gas, oil or water [employer] threatened to shut off services in your [...] documented as of this encounter Care Teams Communications Department Chair Relationship Specialty Start Date End Date Name, MD Cameron [address] [place] [address] PCP - General Family Medicine 06/21/15 documented as of this encounter
--- OUTSIDE RECORDS SUMMARY | 2025-04-05 09:27 | XMS_ITS | Encounter Summary ---
Author Organization [employer] Address [address] [facility] 7t [place] [address] Care Team Providers Care Card Runner Name Role Phone Name, Cameron DURAN Primary Care Provider [phone] Reason for Visit * Reason Comments Med Refill Encounter Details Date Type Department Care Team (Late st Contact Info) Description 02/25/2024 Refill [facility] WALK-IN [address] [phone] Name, MD Cameron [address] [place] [address] Social History Tobacco Use Types Packs/Day Years [...] documented as of this encounter Care Teams Card Runner Relationship Specialty Start Date End Date Name, MD Cameron [address] [place] [address] PCP - General Family Medicine 06/21/15 documented as of this encounter
--- OUTSIDE RECORDS SUMMARY | 2025-04-05 09:27 | XMS_ITS | Encounter Summary ---
Author Organization [employer] Address [address] [facility] 7t [place] [address] Care Team Providers Care Manager Environmental Affairs Name Role Phone Name, Cameron DURAN Primary Care Provider [phone] Encounter Details Date Type Department Care Team (Latest Contact Info) Description 04/04/2025 Travel Social History Tobacco Use Types Packs/Day Years Used Date Smoking Tobacco: Never Passive Smoke Exposure: Never Smokeless Tobacco: Never Alcohol Use Standard [...] as of this encounter Care Teams Manager Environmental Affairs Relationship Specialty Start Date End Date Name, MD Cameron [address] [place] [address] PCP - General Family Medicine 06/21/15 documented as of this encounter
--- OUTSIDE RECORDS SUMMARY | 2025-04-05 09:27 | XMS_ITS | Encounter Summary ---
Author Organization [employer] Address [address] [facility] 7t [place] [address] Care Team Providers Care Federal Air Marshal Name Role Phone Name, Cameron DURAN Primary Care Provider [phone] Reason for Visit * Reason Comments Med Refill Encounter Details Date Type Department Care Team (Late st Contact Info) Description 05/26/2023 Refill [facility] MEDICINE 230 [place], [place] [phone] Name, MD Cameron [address] [place], [place] [phone] Social History Tobacco Use Types Packs/Day Years [...] t he electric, gas, oil or water [employer] threatened to shut off services in your [...] documented as of this encounter Care Teams Federal Air Marshal Relationship Specialty Start Date End Date Name, MD Cameron [address] [place] [address] PCP - General Family Medicine 06/21/15 documented as of this encounter
--- OUTSIDE RECORDS SUMMARY | 2025-04-05 09:27 | XMS_ITS | Encounter Summary ---
Author Organization [employer] Address [address] [facility] 7t [place] [address] Care Team Providers Care Senior Pensions Administrator Name Role Phone Name, Cameron DURAN Primary Care Provider [phone] Reason for Visit * Reason Onset Date Comments Nurse Triage 04/04/2025 Encounter Details Date Type Department Care Team ([facility] st Contact Info) Description 04/04/2025 Telephone [facility] MEDICINE 230 [place], [place] [phone] Name, MD Cameron [address] [place] [address] Nurse Triage Social History Tobacco Use Types [...] Telephone Encounter - Monika Ruiz RN - 04/04/2025 9:43 AM EST Call returned to pt's [facility]. Spoke with nurse Gray who reports that staff noticed a strong odor to pt's urine this morning. Reports pt not able to express any pain/discomfort. Reports pt was incontinent of urine today. States this is not normal for pt. Reports that pt is afebrile and his vital signs are stable. Agrees to evaluation with PCP this afternoon. Protocol Used: Urinary Symptoms (Adult) Protocol-Based Disposition: See in Office or Video Visit Today Video visit offer not recorded Positive Triage Questions: * Bad or foul-smelling urine * Can't control passage of urine (i.e., urinary incontinence) and new-onset (< 2 weeks) or getting worse * Patient wants to be seen * All higher-acuity triage questions were negative. Care Advice Discussed: * Reasons To Call Back - Fever occurs - You become worse * Telephone Encounter - Donte Nelson - 04/04/2025 8:59 AM EST Symptom: Urine Symptoms Outcome: Schedule a same-day appointment or talk to a nurse or provider today Reason: Foul odor Please contact Marina at [phone]. documented in this encounter Plan of Treatment Not on file documented as of this encounter Visit Diagnoses Not on filedocumented in this encounter Additional Health Concerns Assessment Noted Time PHQ-9 Depression Total Score: 2 09/17/19 25 3:41 PM EDT documented as of this encounter Care Teams Senior Pensions Administrator Relationship Specialty Start Date End Date Name, MD Cameron [address] [place] [address] PCP - General Family Medicine 06/21/15 documented as of this encounter
--- OUTSIDE RECORDS SUMMARY | 2025-04-05 09:27 | XMS_ITS | Clinical Summary ---
Author Organization [employer] Address [address] [place] [address] [address] [place] [address] Care Team Providers Care Small Business Banking Officer Name Role Phone Name, Cameron DURAN Primary Care Provider Allergies Active Allergy Reactions Criticality Noted Date Comments Egg Protein (Egg White) 11/17/2022 Other Reaction(s): UNKNOWN Lactose 07/01/2023 Other Reaction(s): UNKNOWN Medications OLANZapine (ZyPREXA) 2.5 MG tablet take 1/2 tablet by oral route every day 016 Active cloNIDine (Catapres) 0.2 MG tablet Take 1 tablet by mouth every 48 hours. Active fluvoxaMINE (Luvox) 100 MG tablet Take 100 mg by mouth See administration instructions. 200mg AM and 100mg PM 019 Active EPINEPHrine (Epipen) 0.3 MG/0.3ML injection syringe USE DIRECTED FOR ANAPHYLAXIS KEEP ON HAND AT ALL TIMES IC: EPIPEN 2 each 023 Active melatonin 5 MG tablet Take 1 tablet by mouth at bedtime. 024 Active clotrimazole (Lotrimin) 1 % cream APPLY A THIN LAYER TOPICALLY TO BILATERAL ARMPITS TWICE DAILY AND APPLY A THIN LAYER TOPICALLY TO GROIN TWICE DAILY FOR RASH / CLOTRIMAZOLE 1% 30 g 4 11/25/19 25 6:11 PM EDT 024 Active PanOxyl Foaming Wash 10 % external washIndications: Acne vulgaris APPLY TOPICALLY TWICE DAILY SPECIAL INSTRUCTIONS: WASH FOR FACE 156 g 3 024 Active GNP Bacitracin Zinc 500 UNIT/GM ointment APPLY A THIN LAYER TOPICALLY TWICE DAILY NEEDED FOR MINOR CUTS, SCRATCHES, OR ABRASIONS FOR 7 DAYS / NOTIFY MD IF NO IMPROVEMENT 28.4 g 1 025 Active acetaminophen (Tylenol) 325 MG tablet TAKE 2 TABS (650 MG) BY MOUTH EVERY 6 HRS NEEDED-JOINT PAIN HEADACHE, BODY ACHES OR TEMP OF 100 F OR HIGHER/MAX 4 DOSES/24HR GIVE W/ APPLESAUCE/SEE ANCILLARY 120 tablet 5 025 Active valACYclovir (Valtrex) 1 g tablet TAKE 2 TABLETS (2 GM) BY MOUTH EVERY 12 HOURS FOR 1 DAY 6 tablet 2 025 Active Skin Protectants, Misc. (Eucerin Original Healing) cream APPLY TOPICALLY TO BODY TWICE DAILY FOR DRY SKIN 454 g 3 025 Active hydrocortisone 2.5 % cream APPLY A THIN LAYER TOPICALLY TO THE NECK TWICE DAILY FOR 10 DAYS NEEDED FOR ECZEMA RASH AND NOTIFY MD IF NOT RESOLVED 28.35 g 2 025 Active Vascepa 1 g capsuleIndicatio ns:High triglycerides TAKE 1 CAPSULE (1 GM) BY MOUTH DAILY IN THE MORNING WITH FOOD FOR HYPERTRIGLYCERIDEMIA / DO NOT CHEW, OPEN, DISSOLVE, OR CRUSH 30 capsule 5 025 Active cetirizine (ZyrTEC) 10 MG tablet TAKE 1 TABLET (10 MG) BY MOUTH DAILY IN THE MORNING FOR ITCH GIVE WITH APPLESAUCE 30 tablet 5 025 Active hydrOXYzine HCl (Atarax) 25 MG tabletIndication s:Tinea corporis TAKE 1 TABLET (25 MG) BY MOUTH DAILY AT BEDTIME AN ANTIHISTAMINE / GIVE WITH APPLESAUCE 30 tablet 3 025 Active Acne Medication 5 5 % gel APPLY A PEA SIZED AMOUNT TOPICALLY TWICE DAILY TO FACE IC: BENZOYL PEROXIDE 42.5 g 2 025 Active sulfamethoxazole -trimethoprim (Bactrim DS) 800-160 MG tablet Take 1 tablet by mouth 2 times daily for 3 days. 6 tablet 025 2024 Active clindamycin (Cleocin T) 1 % lotionIndication s:Acne vulgaris Apply topically 2 times daily. Apply to face 60 mL 11 024 2024 Active Problems Problem Noted Date Diagnosed Date Metabolic dysfunction-associated steatohepatitis (MASH) 09/16/2024 Acne vulgaris 06/20/2023 Assessment & Plan (06/20/2023 [...] 07/31/2016 Tinea corporis 07/31/2016 Cerebral palsy 10/22/2011 Resolved Problems Problem Noted Date Diagnosed Date Resolved Date Fatty liver 09/16/2024 09/16/2024 Ocular herpes zoster 10/02/2023 025 Assessment & Plan (10/02/2023 8:22 AM EDT): Pt w vesicular rash of right eye Pt has hx of herpes labialis and per staff physical therapist she thinks a year ago pt has herpetic rash in eye as well -concern for herpes zoster ophthalmicus (HZO) -I called pt's tube drawing supervisor and obtained apt for pt to be seen today at 1h15 pm - RN will take pt to apt -start immediately valacyclovir 1 gr TID for 10 days -will need to consdier for daily supressive tx if having mx recurrence -may need steroirds to follow w tube drawing supervisor today to decide -Spoke w MA today to try to get earlier apt w PCP or any provider for f up as sick visit for 10 days -Alarm signs and symptoms discussed Acute UTI 07/17/2023 09/16/2024 Irritation of right eye 07/17/202308/20 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 09/16/2024 Nausea & vomiting 07/17/2023 09/16/2024 Encounters Date Type Department Care Team Description 04/04/2025 2:00 PM EST Office Visit [facility] [address] [place] [id number] NameCameron MD Foul smelling urine (Primary Dx); Urinary incontinence, unspecified type; Slightly cloudy urine 04/04/2025 Travel 04/04/[address] [address] Cameron Bell MD Nurse Triage 03/14/[address] [address] Cameron Bell MD Durable Medical Equipment (Compression stockings) 02/18/[address] [address] Cameron Bell MD Durable Medical Equipment 02/03/[address] [phone] Cameron Bell MD Med Refill 02/02/2025 Refill [facility] [address] [place] [phone] Mariana Powell MD 01/21/[address] [address] Cameron Bell MD Durable Medical Equipment from Last 3 Months Immunizations Immunization Administration Dates Next Due DTaP 04/22/2006 Hep [...] Mass Index 23.31 04/04/2025 2:26 PM EST Plan of Treatment Health Maintenance Due Date Last Done Comments Alcohol/Substance Use Screening 1993 Family Planning (PISQ) 1996 HPV Vaccines (1 - Male 3-dose series) 1996 SDOH Screening 11/03/2024 11/04/2023 COVID-19 Vaccine ( - season) 2024 04/02/2022, 04/06/2021, 06/26/2020, Additional history exists Influenza Vaccine (#1) 2024 , 04/02/2022, 01/10/2021, Additional history exists Depression Screening 09/16/2025 09/16/2024, 09/17/19 25 Disability Screening 09/16/2025 09/16/2024 Tobacco Screening 04/04/2026 04/04/2025 DTaP/Tdap/Td Vaccines (5 - Td or Tdap) 11/26/2026 11/26/2016, 05/22/2006, 04/22/2006, Additional history exists Lipid Panel 11/04/2028 11/05/2023, 10/10/2022 Zoster Vaccines (1 of 2) 08/09/2031 RSV Patients and Patients Aged 60 years or older (1 - 1-dose 75+ series) 2056 HIV Screening Completed 10/02/2021 Hepatitis C Screening Completed 10/02/2021 Pneumococcal Vaccine: Pediatrics (0 to 5 Years) and At-Risk Patients (6 to 49) Years Aged Out 10/04/2022 No longer eligible based on patient's age to complete this topic Hepatitis A Vaccines Completed 11/11/2023, 06/16/20 23 Hepatitis B Vaccines Completed 05/18/2024, 12/17/2023, 11/11/2023, Additional history exists HIB Vaccines Aged Out No longer eligi ble based on patient's age to complete this topic IPV Vaccines Aged Out No longer eligi ble based on patient's age to complete this topic Meningococcal B Vaccine Aged Out No l onger eligible based on patient's age to complete [...] Procedure Name Priority Date/Time Associated Diagnosis Comments LIPID PANEL, STANDARD Routine 11/05/2023 9:14 AM EDT Fatty liver Weight gain PE (physical exam), routine Transaminitis Need for hepatitis B screening test Hyperglycemia ZZZ HISTORICAL HEPATITIS C ANTIBODY RFLX Routine 10/02/2021 8:59 AM EDT ZZZ HISTORICAL HIV AB/AG Routine 10/02/2021 8:59 AM EDT from Last 3 Months or Most Recently Relevant to Health Maintenance Results * (ABNORMAL) Lipid Panel, Standard (11/05/2023 9:14 AM EDT) Triglycerides 334(H) <150 mg/dL [facility] Comment:Desirable Triglyceri de: less than 150 mg/dLBorderline High Triglyceride 150-199 mg/dLHigh Triglyceride: 200-499 mg/dLVery High Triglyceride: greater than or equal to 5OO mg/dL Cholesterol 155 <200 mg/dL [facility] Comment:Desirable Cholestero l: less than 200 mg/dLBorderline High Cholesterol: 200-239 mg/dLHigh Cholesterol: greater than 239 mg/dL LDL Cholesterol Calculated 62 <100 mg/dL [facility] Comment:Desirable LDL: less than 100 mg/dLNear Optimal/Above Optimal LDL: 110- 129 mg/dLBorderline High LDL: 130-159 mg/dLHigh LDL: 160-189 mg/dLVery High LDL: greater than or equal to 190 mg/dL HDL Cholesterol 27(L) >40 mg/dL [facility] Comment:Desirable HDL: great er than 40 mg/dL Note: This HDL assay may give artificially low results in patients with liver disease. Blood Venous blood specimen / Unknown 11/05/2023 9:14 AM EDT 11/05/2023 11:12 AM EDT us Cameron Bell MD LAB BLOOD ORDERABLES Final Resul t Performing Organization Address City/[facility]/ZIP Co de Phone Number [facility] [address] [place] [address] [phone] * HEPATITIS C ANTIBODY RFLX (10/02/2021 8:59 AM EDT) Pathologist [facility] Hepatitis C Antibody Nonreactive Nonreactive [facility] Comment: Antibodies to HCV not detected; does not exclude early acute HCV infection. 10/02/2021 8:59 AM EDT us Cameron Bell MD HISTORICAL/NON ORDERABLE LABS Fi nal Result Performing Organization Address [facility] Co de Phone Number [facility] [address] * HIV AB/AG (10/02/2021 8:59 AM EDT) Pathologist [facility] HIV AB/AG Nonreactive Nonreactive [facility] Comment: HIV-1 p24 Ag and/or HIV-1/HIV-2 Ab not detected. A test result that is nonreactive does not exclude the possibility of exposure to or infection with HIV-1 and/or HIV-2. Nonreactive results in this assay for individuals with prior exposure to HIV-1 and/or HIV-2 may be due to antigen and antibody levels that are below the limit of detection of this assay. The [employer] Cathodic Protection Technician HIV Ag/Ab Combo assay result and supplemental assay results should be interpreted in conjunction with the patient's clinical presentation, history and other laboratory results. If the results are inconsistent with clinical evidence, additional testing is suggested to confirm the result. 10/02/2021 8:59 AM EDT us Cameron Bell MD HISTORICAL/NON ORDERABLE LABS Fi nal Result [facility] [address] from Last 3 Months or Most Recently Relevant to Health Maintenance Insurance [facility] STANDARD MEDICARE Care Teams Small Business Banking Officer Relationship Specialty Start Date End Date Name, MD Cameron [address] [place] [id number] PCP - General Family Medicine 06/21/15
--- OUTSIDE RECORDS SUMMARY | 2025-04-05 09:27 | XMS_ITS | Encounter Summary ---
Author Organization [employer] Address [address] [facility] [address] [place] [address] Care Team Providers Care Rocket Engine Component Mechanic Name Role Phone Name, Cameron DURAN Primary Care Provider [phone] Reason for Visit * Reason Onset Date Comments Referral 01/06/2024 Encounter Details Date Type Department Care Team ([facility] st Contact Info) Description 01/06/2024 Telephone [facility] [address] [place], [place] [phone] Name, MD Cameron [address] [place] [address] Referral Social History Tobacco Use Types Packs/Day [...] [facility] and so they're requesting forpt to be seen with podiatry. If any questions you can contact Marina at [phone]. documented in this encounter Plan of Treatment Not on file documented as of this encounter Visit Diagnoses Not on filedocumented in this encounter Additional Health Concerns Assessment Noted Time PHQ-9 Depression Total Score: 0 04/02/20 22 11:16 AM EST documented as of this encounter Care Teams Rocket Engine Component Mechanic Relationship Specialty Start Date End Date Name, MD Cameron [address] [place] [address] PCP - General Family Medicine 06/21/15 documented as of this encounter
--- OUTSIDE RECORDS SUMMARY | 2025-04-05 09:27 | XMS_ITS | Encounter Summary ---
Author Organization [employer] Address [address] [facility] [address] [place] [address] Care Team Providers Care Cath Lab Manager Name Role Phone Name, Cameron DURAN Primary Care Provider [phone] Reason for Visit * Reason Comments Med Refill Encounter Details Date Type Department Care Team (Late st Contact Info) Description 12/10/2024 Refill [facility] [address] [place], [place] [phone] Name, MD Cameron [address] [place], [place] [phone] Tinea corporis Social History Tobacco Use Types [...] documented as of this encounter Care Teams Cath Lab Manager Relationship Specialty Start Date End Date Name, MD Cameron [address] [place] [address] PCP - General Family Medicine 06/21/15 documented as of this encounter
[2025-04-05 11:43] LABS: Appearance Urine Cloudy; Glucose Urine UA Negative (Negative); PH 6.0 (5.0-9.0); Specific Gravity - Urine 1.015 (1.005-1.025); UMIC TRIGGER UACC YES
[2025-04-05 11:48] LABS: UACC Culture Trigger YES
== END 2025-04-05 08:46 | disposition home or self-care (01) ==
LOC: HO.HHCLNP 08:45
PROVIDERS: PCP Internal Medicine Geriatric Medicine; Visit Provider Internal Medicine Geriatric Medicine
DX: R82.90 Unspecified abnormal findings in urine (principal); R32 Unspecified urinary incontinence
CPT/HCPCS: 81001; 87086